=== PATIENT | female | born 1995 | race Caucasian/White ===

== ENCOUNTER → 2017-10-31 13:41 | Outpatient (REF) | payer OTHER, SELFPAY ==
[2017-10-31 19:01] LABS: Basophils % 0.3 % (0.1-2.0); Eosinophils # 0.1 K/mm3 (0.0-0.4); Eosinophils % 1.2 % (0.1-12.0); Hematocrit 43.8 % (37.0-47.0); Hemoglobin 14.1 g/dL (12.2-16.2); Lymphocytes # 2.5 K/mm3 (0.7-4.5); Lymphocytes % 27.6 K/mm3 (10-50); Mean Corpuscular HGB Conc 32.3 g/dL (31.8-35.4); Mean Corpuscular Hemoglobin 27.6 pg (27.0-31.2); Mean Corpuscular Volume 85.6 fl (81-99); Mean Platelet Volume 10.7 fl (7.4-10.4); Monocytes # 0.4 K/mm3 (0.1-1.0); Monocytes % 4.3 % (1.7-9.3); Neutrophils % 66.6 % (37.0-80.0); Platelet Count 331 K/mm3 (142-424); Red Blood Count 5.12 M/mm3 (4.20-5.40); Red Cell Distribution Width 12.9 % (11.5-17.5); White Blood Count 9.1 K/mm3 (4.5-13.0)
[2017-10-31 19:49] LABS: Alanine Aminotransferase 30 U/L (12-78); Albumin Level 4.2 gm/dL (3.4-5.0); Albumin/Globulin Ratio 1.4 (1.1-1.8); Alkaline Phosphatase 68 U/L (46-116); Anion Gap 13.6 mEq/L (5-15); Aspartate Amino Transferase 11 U/L (15-37); Bilirubin,Total 0.4 mg/dL (0.2-1.0); Blood Urea Nitrogen 10 mg/dL (7-18); Calcium 9.9 mg/dL (8.5-10.1); Carbon Dioxide 26 mmol/L (21.0-32.0); Chloride 104 mmol/L (98-107); Chol/HDL Ratio 4.1 (1-3.5); Cholesterol 184 mg/dL (140-200); Creatinine,Serum 0.65 mg/dL (0.55-1.02); Estimated Glomerular Filt Rate 116 ml/min (>60); GFR (African American) 141 ML/MIN (>60); Globulin 2.9 gm/dl (1.3-3.2); Glucose 77 mg/dL (74-106); HDL Cholesterol 45 mg/dL (29-89); LDL Cholesterol 109 mg/dL (0-130); Potassium 4.6 mmoL/L (3.5-5.1); Sodium 139 mmol/L (136-145); Thyroid Stimulating Hormone 2.34 uIU/ml (0.516-4.13); Total Protein,Serum 7.1 gm/dL (6.4-8.2); Triglycerides 149 mg/dL (30-200); VLDL Cholesterol 30 mg/dL (0-40)
[2017-11-02 20:10] LABS: Vitamin D 25 Hydroxy 21.2 ng/mL (30.0-100.0)
== END ==
LOC: LAB 13:41
PROVIDERS: Visit Provider Physician Assistant
DX: E66.9 Obesity, unspecified (principal); R10.9 Unspecified abdominal pain
CPT/HCPCS: 80053; 80061; 82652; 84443; 85025

== ENCOUNTER 2020-10-07 10:32 | Emergency (ER) | payer OTHER, SELFPAY ==
[2020-10-07 10:35] VITALS: BP 131/82; PULSE 105; RESP 20; TEMP 36.9; O2SAT 96; BMI 41.1
[2020-10-07 10:52] VITALS: BP 131/82; PULSE 105; RESP 20; TEMP 36.9; O2SAT 96
--- NOTE | 2020-10-07 10:58 | HMH.EDUTC ---
[facility] – [place] Disposition Clinical Impression: Left otitis media with effusion Disposition: Home, Self-Care Condition on Discharge: Good Instructions: Middle Ear Infection Additional Instructions: Drink plenty of fluids. Take tylenol for pain or fever. Return if you begin to have difficulty breathing. Follow up with your regular doctor. GO TO THE ER FOR ANY WORSENING SYMPTOMS Prescriptions: Amoxicillin/Potassium Clav [Augmentin 875-125 Tablet] 1 tab PO Q12H 10 Days #20 tab Transmission Status: Received by [facility] #[id number] Neomycin/Polymyxin B Sulf/Hc [Hfhjtyml-Kngcdjhgo-WN Otic Susp 10mL] 3 drops EAR-LEFT TID 7 Days #1 bottle Transmission Status: Received by [employer] # Referrals: Kourtney Park PA [Primary Care Provider] - Time of Disposition: 11:05 Medical Decision Making - Medical Records Medical records reviewed: No: I reviewed the patient's medical records. - Bill Inquiry Pt receiving controlled substance: No Vital Signs: 10/07/20 10:35 10/07/20 10:52 Temperature 98.4 F 98.4 F Temperature Source Oral Pulse Rate 105 H Pulse Rate [Right Brachial] 105 H Respiratory Rate 20 20 Blood Pressure 131/82 Blood Pressure [Right Arm] 131/82 Blood Pressure Mean [Right Arm] 98 Blood Pressure Source [Right Arm] Automatic Cuff Blood Pressure Position [Right Arm] Sitting 02 Sat by Pulse Oximetry 96 Oxygen Delivery Method Room Air [facility] – [place] HPI - General Stated complaint: left ear infection Time Seen by Provider: 10/07/20 10:58 Mode of Arrival: Ambulatory Source of Information: Patient Limitations: No Limitations Description of Symptoms (Recalled from Triage Doc. by RN): PATIENT C/O LEFT EAR PAIN X 2.5 DAYS HEENT Symptoms (Recalled from RN notes): Yes Resp Symptoms (Recalled from RN notes): No Skin Symptoms (Recalled from RN notes): No MS Symptoms (Recalled from RN notes): No Functional Status (Recalled from RN notes): WNL - History of Present Illness Provider Complaint: She c/o left ear pain for the past 2 days. She denies any fever/chills, body aches, etc. - Related Data Previous Rx's Medication Instructions Recorded Amoxicillin/Potassium Clav 1 tab PO Q12H 10 Days #20 tab 12/24/20 [Augmentin 875-125 Tablet] Neomycin/Polymyxin B Sulf/Hc 3 drops EAR-LEFT TID 7 Days #1 10/07/20 [Szceohjd-Dokbvtekg-EH Otic Susp bottle 10mL] Allergies Allergy/AdvReac Type Severity Reaction Status Date / Time No Known Allergies Allergy Verified 07/06/20 16:13 - Worker's Comp Is this a Worker's Comp case?: No H History - Hepatitis A Screen Drug use history?: No High risk sexual behaviors?: No History of sexually transmitted infection?: No Currently employed?: No Childcare worker?: No Do you have indoor plumbing?: Yes Do you have electricity?: Yes Attestation statement:: This patient has been screened for Hepatitis A risk factors. I have reviewed the patient's past medical history: Yes Medical History: Reports:: Asthma Comment: History of Thyroid Issues, vitamin d deficiency Laterality Cases: Bilateral: Tonsillectomy Amputation: No Fractures: No - Social History Smoking Status: Current every day smoker Tobacco Type: cigarettes # Packs/Day (cigarettes): 1 Alcohol Intake: never Alcohol Intake Frequency:: holidays/special occasions only Substance Use Type: denies use Occupational Status: other Housing: other Household Members: family Family Hx:: Hypertension Comment: Both mom and dad ROS Obtained: Yes All systems reviewed & no additional complaints - Constitutional Constitutional: Reports system reviewed and no additional complaints, except as docu - Eyes Eyes: Reports system reviewed and no additional complaints, except as docu - ENT Ears, Nose, Mouth, and Throat: Reports system reviewed and no additional complaints, except as docu - Cardiovascular Cardiovascular: Reports system reviewed and no additional complaints, except
== END 2020-10-07 11:00 | disposition home or self-care (01) ==
PROVIDERS: Emergency Provider Nurse Practitioner Family; PCP Physician Assistant
DX: H65.92 Unspecified nonsuppurative otitis media, left ear (principal); J45.909 Unspecified asthma, uncomplicated
CPT/HCPCS: 99201

== ENCOUNTER → 2021-07-27 14:22 | Outpatient (CLI) | payer OTHER, SELFPAY ==
[2021-07-27 14:39] LABS: Basophils % 0.5 % (0.1-2.0); Eosinophils % 0.4 % (0.1-12.0); Hematocrit 39.7 % (37.0-47.0); Lymphocytes # 2.1 K/mm3 (0.7-4.5); Lymphocytes % 34.6 % (10-50); Mean Corpuscular HGB Conc 32.8 g/dL (31.8-35.4); Mean Corpuscular Hemoglobin 27.6 pg (27.0-31.2); Mean Platelet Volume 10.5 fl (7.4-10.4); Monocytes # 0.2 K/mm3 (0.1-1.0); Monocytes % 3.9 % (1.7-9.3); Neutrophils # 3.7 K/mm3 (1.8-7.8); Neutrophils % 60.6 % (37.0-80.0); Platelet Count 344 K/mm3 (142-424); Red Blood Count 4.73 M/mm3 (4.20-5.40); Red Cell Distribution Width 13.8 % (11.5-17.5); White Blood Count 6.2 K/mm3 (4.8-10.8)
[2021-07-27 14:47] LABS: Chloride 106 mmol/L (98-107)
[2021-07-27 14:48] LABS: Potassium 4.2 mmoL/L (3.5-5.1); Sodium 139 mmol/L (136-145)
[2021-07-27 14:50] LABS: Alanine Aminotransferase 29 U/L (12-78); Alkaline Phosphatase 72 U/L (38-126); Anion Gap 12.2 mEq/L (5-15); Aspartate Amino Transferase 27 U/L (14-36); Bilirubin,Total 0.8 mg/dl (0.2-1.3); Blood Urea Nitrogen 7 mg/dl (7-17); Carbon Dioxide 25 mmol/L (22.0-30.0); Estimated Glomerular Filt Rate 123 ml/min (>60); GFR (African American) 149 ML/MIN (>60)
[2021-07-27 14:51] LABS: Albumin Level 4.1 g/dl (3.5-5.0); Albumin/Globulin Ratio 1.6 (1.1-1.8); Calcium 9.4 mg/dl (8.4-10.2); Chol/HDL Ratio 4.6 (1-3.5); Cholesterol 198 mg/dl (140-200); Globulin 2.6 g/dL (1.3-3.2); Glucose 97 mg/dl (74-100); HDL Cholesterol 43 mg/dl (40-60); Total Protein,Serum 6.7 g/dl (6.3-8.2); Triglycerides 146 mg/dl (30-150); VLDL Cholesterol 29 mg/dL (0-40)
[2021-07-27 15:02] LABS: Direct LDL Cholesterol 131.74 mg/dL (100-129)
[2021-07-27 15:09] LABS: T4 (Thyroxine) 8.7 ug/dl (5.53-11.0)
[2021-07-27 15:16] LABS: 25-OH Vitamin D, Total 34.7 ng/mL (30-100)
[2021-07-27 15:22] LABS: Thyroid Stimulating Hormone 3.91 uIU/mL (0.465-4.68)
== END ==
PROVIDERS: Visit Provider Nurse Practitioner Family
DX: R59.9 Enlarged lymph nodes, unspecified (principal); E66.9 Obesity, unspecified; Z68.42 Body mass index [BMI] 45.0-49.9, adult
CPT/HCPCS: 80053; 80061; 82306; 84436; 84443; 85025

== ENCOUNTER 2022-01-26 09:48 | Emergency (ER) | payer OTHER, SELFPAY ==
[2022-01-26 10:12] VITALS: BP 129/89; PULSE 101; RESP 19; TEMP 37; O2SAT 96; BMI 39.4
--- NOTE | 2022-01-26 10:24 | HMH.EDUTC ---
[facility] [place] Clinical Impression: Diarrhea Qualifiers: Diarrhea type: unspecified type Qualified Code(s): R19.7 - Diarrhea, unspecified Disposition: Home, Self-Care Condition on Discharge: Good Instructions: Diarrhea Additional Instructions: Monitor temperature. Seek treatment if fever develops. Follow-up immediately if new or worse symptoms worsen or no noticeable improvement over 48 hours. Increase fluids such as water, Gatorade, Powerade, juice or Pedialyte with limited formula/dietary in children No food is okay as long as you are drinking. Once ready to eat start bland such as bananas, rice, applesauce, toast. Contagious until no diarrhea, vomiting, fever times 48 hours without medication Avoid antidiarrheals unless told otherwise. Best to let the virus run its course. Follow-up immediately for new or worsening symptoms or no noticeable improvement over the next 48 hours. Referrals: Kourtney Park PA [Primary Care Provider] - Time of Disposition: 10:34 Medical Decision Making - Bill Inquiry Pt receiving controlled substance: No Vital Signs: 01/26/22 10:12 Temperature 98.6 F Temperature Source Oral Pulse Rate [Left] 101 H Respiratory Rate 19 Blood Pressure [Right Arm] 129/89 Blood Pressure Mean [Right Arm] 102 02 Sat by Pulse Oximetry 96 [facility] [place] - General Chief complaint: [facility] Stated complaint: diarrhea, abd pains, fever/chills Time Seen by Provider: 01/26/22 10:24 Mode of Arrival: Ambulatory Source of Information: Patient Limitations: No Limitations Description of Symptoms (Recalled from Triage Doc. by RN): pt c/o a fever, diarrhea, and shakiness since Sunday. HEENT Symptoms (Recalled from RN notes): No Resp Symptoms (Recalled from RN notes): No Skin Symptoms (Recalled from RN notes): No MS Symptoms (Recalled from RN notes): No Functional Status (Recalled from RN notes): wnl - History of Present Illness Provider Complaint: 27 yr old female presents for c/o a fever, diarrhea, and chills since Sunday. pt denies vomiting or nausea. states no other sick contacts - Related Data Home Medications Medication Instructions Recorded Confirmed No Known Home Medications 07/27/21 09/02/21 Allergies Allergy/AdvReac Type Severity Reaction Status Date / Time No Known Allergies Allergy Verified 11/19/21 11:39 - Worker's Comp Is this a Worker's Comp case?: No [facility] History - Hepatitis A Screen Drug use history?: No High risk sexual behaviors?: No History of sexually transmitted infection?: No Currently employed?: No Childcare worker?: No Do you have indoor plumbing?: Yes Do you have electricity?: Yes Attestation statement:: This patient has been screened for Hepatitis A risk factors. I have reviewed the patient's past medical history: Yes Medical History: Reports:: Asthma Comment: History of Thyroid Issues, vitamin d deficiency Laterality Cases: Bilateral: Tonsillectomy Amputation: No Fractures: No Comment: tonsil and adenoids removed - Social History Smoking Status: Current every day smoker Tobacco Type: e-cigarettes # Packs/Day (cigarettes): 1 Alcohol Intake: current Alcohol Intake Frequency:: holidays/special occasions only Substance Use Type: denies use Occupational Status: other Housing: other Household Members: family Family Hx:: Hypertension Comment: Both mom and dad ROS Obtained: Yes Systems reviewed as appropriate & no additional complaints - Constitutional Constitutional: Reports system reviewed and no additional complaints, except as docu, Denies fatigue, Reports fever(s), Reports poor appetite - Eyes Eyes: Reports system reviewed and no additional complaints, except as docu, Denies blurry vision - ENT Ears, Nose, Mouth, and Throat: Reports system reviewed and no additional complaints, except as docu, Denies sore throat - Cardiovascular Cardiovascular: Reports system reviewed and no additional complaints, except as docu
[2022-01-26 10:31] LABS: UTC Influenza A Antigen Negative (Negative); UTC Influenza B Antigen Negative (Negative)
[2022-01-26 10:41] VITALS: BP 129/89; PULSE 101; RESP 19; TEMP 37
[2022-01-26 10:42] LABS: Adenovirus F 40/41, stool Not Detected (NotDetected); Astrovirus Not Detected (NotDetected); Campylobacter Not Detected (NotDetected); Clostridium Difficile A/B, PCR Not Detected (NotDetected); Cryptosporidium Not Detected (NotDetected); Cyclospora Cayetanesis Not Detected (NotDetected); Entamoeba histolytica Not Detected (NotDetected); Enteroaggregative E coli Not Detected (NotDetected); Enteropathogenic E coli Not Detected (NotDetected); Enterotoxigenic E coli Not Detected (NotDetected); Giardia lamblia Not Detected (NotDetected); Norovirus Not Detected (NotDetected); Plesimonas Shigalloides, PCR Not Detected (NotDetected); Salmonella, PCR Not Detected (NotDetected); Sapovirus Not Detected (NotDetected); Shiga-like toxin E coli Not Detected (NotDetected); Shigella Enterovasive E coli Not Detected (NotDetected); Vibrio Cholerae Not Detected (NotDetected); Vibrio, PCR Not Detected (NotDetected); Yersinia Entercolitica, PCR Not Detected (NotDetected)
[2022-01-26 14:46] LABS: Rotavirus A Detected (NotDetected)
== END 2022-01-26 10:42 | disposition home or self-care (01) ==
PROVIDERS: Emergency Provider Nurse Practitioner Family; PCP Physician Assistant
DX: R19.7 Diarrhea, unspecified (principal); R10.9 Unspecified abdominal pain; R50.9 Fever, unspecified; J45.909 Unspecified asthma, uncomplicated; F17.210 Nicotine dependence, cigarettes, uncomplicated; E55.9 Vitamin D deficiency, unspecified; E66.9 Obesity, unspecified; Z68.30 Body mass index [BMI] 30.0-30.9, adult; Z82.49 Family history of ischemic heart disease and other diseases of the circulatory system
CPT/HCPCS: 87506; 87804; 99212; G0463

== ENCOUNTER → 2022-06-13 07:10 | Outpatient (CLI) | payer OTHER, SELFPAY ==
[2022-06-13 19:59] LABS: Basophils % 0.5 % (0.1-2.0); Eosinophils # 0.1 K/mm3 (0.0-0.4); Eosinophils % 0.8 % (0.1-12.0); Hematocrit 42.2 % (37.0-47.0); Hemoglobin 13.5 g/dL (12.2-16.2); Lymphocytes # 2.4 K/mm3 (0.7-4.5); Lymphocytes % 29.9 % (10-50); Mean Corpuscular HGB Conc 32.1 g/dL (31.8-35.4); Mean Corpuscular Hemoglobin 27.2 pg (27.0-31.2); Mean Corpuscular Volume 84.6 fl (81-99); Mean Platelet Volume 10.9 fl (7.4-10.4); Monocytes # 0.4 K/mm3 (0.1-1.0); Monocytes % 4.7 % (1.7-9.3); Neutrophils # 5.1 K/mm3 (1.8-7.8); Platelet Count 349 K/mm3 (142-424); Red Blood Count 4.98 M/mm3 (4.20-5.40); Red Cell Distribution Width 13.8 % (11.5-17.5); White Blood Count 7.9 K/mm3 (4.8-10.8)
== END ==
PROVIDERS: PCP Physician Assistant; Visit Provider Physician Assistant
DX: R53.83 Other fatigue (principal); R23.3 Spontaneous ecchymoses
CPT/HCPCS: 84443; 85025

== ENCOUNTER 2022-08-08 13:24 | Emergency (ER) | payer OTHER, SELFPAY ==
[2022-08-08 15:13] VITALS: BP 119/65; PULSE 85; RESP 16; TEMP 36.7; O2SAT 100; BMI 41.1
[2022-08-08 15:15] LABS: UTC Strep Screen (Rapid) Negative (Negative)
--- NOTE | 2022-08-08 15:27 | EXP.UTC ---
Discharge Plan Disposition Patient Disposition: Home, Self-Care Condition: Good Prescriptions Prescriptions: New amoxicillin 875 mg tablet 875 mg PO BID Qty: 20 0RF methylprednisolone [Medrol (Sacha)] 4 mg tablets,dose pack See Rx Instructions .Route .COMPLEX 6 Days Qty: 21 0RF Rx Instructions: taper pack; No Action dicyclomine 20 mg tablet 20 mg PO TID PRN (Reason: pain/diarrhea) Qty: 60 2RF ondansetron 8 mg tablet,disintegrating 8 mg PO Q8H PRN (Reason: nausea and vomiting) 5 Days Qty: 20 0RF Contrave 8-90 mg tablet extended release 1 tab PO DAILY Rx Instructions: 1 tab QAM X 1 week, then 1 BID X 1 week, then 2 Q AM and 1 QHS X 1 week, then 2 BID Referrals Follow up/Referrals: Kourtney Park PA [Primary Care Provider] - See instructions Activity Restrictions/Add. Instructions Additional Instructions/Restrictions: *Monitor Temp, Over the counter Motrin or Tylenol as directed/as needed Tylenol every 4 hours and Motrin every 6 hours (as long as your family doctor has told you that you can take it) for fever or pain. and straight to ER if unable to lower temp less than 101.0 after medication given *Warm salt water gargles may help to soothe the throat *Throat Lozenges? *Warm fluids like tea with honey may help to soothe the throat? *Sleep elevated *Humidifier/Vaporizer Take medication as prescribed Your throat swab was sent for culture. Those results are typically sent to your primary care. Be sure to follow up in 2-3 days with your family doctor/primary care physician if no improvement so they can review those result and treat if necessary. If you don?t have a primary care doctor, I recommend you get one but in the mean time, you will have to return to a walk in clinic Follow up IMMEDIATELY for new or worsening symptoms or no Noticeable improvement over the next 48-72 hours. 911 for difficulty breathing or swallowing Clinical Impressions Clinical Impression: Otitis media Instructions Patient Instructions: Middle Ear Infection, Amoxicillin, Sore Throat Discharge ED Provider: Mahogany Silverio [facility] HPI General Stated complaint: Sore throat Mode of Arrival: Ambulatory Source of Information: Patient Limitations: No Limitations Time Seen by Provider: 08/08/22 15:27 Description of Symptoms (Recalled from Triage Doc. by RN): pt comes in with c/o sore throat, bilateral ear pain. ongoing since sunday HEENT Symptoms (Recalled from RN notes): Yes Resp Symptoms (Recalled from RN notes): Yes Skin Symptoms (Recalled from RN notes): No MS Symptoms (Recalled from RN notes): No Functional Status (Recalled from RN notes): n/a History of Present Illness Provider Complaint: Patient states that she started on Sunday with sore throat and bilateral ear aches States that this morning her throat was hurting worse and hurt when she would swallow so she came in Related Data Home Medications Medication Instructions Recorded Confirmed naltrexone 8 mg-bupropion 90 mg 1 tab PO DAILY . 08/08/22 08/08/22 tablet,extended release (Contrave) Previous Rx's Medication Instructions Recorded dicyclomine 20 mg tablet 20 mg PO TID PRN pain/diarrhea #60 03/09/22 tabs ondansetron 8 mg disintegrating 8 mg PO Q8H PRN nausea and 03/09/22 tablet vomiting 5 days #20 tabs amoxicillin 875 mg tablet 875 mg PO BID #20 tabs 08/08/22 methylprednisolone 4 mg tablets in See Rx Instructions .Route 08/08/22 a dose pack (Medrol (Sacha)) .COMPLEX 6 days #21 tabs Allergies Allergy/AdvReac Type Severity Reaction Status Date / Time phentermine [From Adipex-P] Allergy Mild Verified 08/08/22 15:16 Worker's Comp Is this a Worker's Comp case?: No PFSH PFSH Medical History (Updated 08/08/22 @ 15:33 by Mahogany Silverio APRN) Allergic reaction Obesity (BMI 30-39.9) Recurrent boils Swollen lymph nodes Vitamin D deficiency (~10/2017) Social History (Reviewed 08/08/22 @ 15:1
[2022-08-08 15:48] VITALS: BP 119/65; PULSE 85; RESP 16; TEMP 36.7; O2SAT 100
== END 2022-08-08 15:49 | disposition home or self-care (01) ==
PROVIDERS: Emergency Provider Nurse Practitioner; PCP Physician Assistant
DX: H66.90 Otitis media, unspecified, unspecified ear (principal)
CPT/HCPCS: 87880; 99212; G0463

== ENCOUNTER 2022-08-26 16:43 | Emergency (ER) | payer OTHER, SELFPAY ==
[2022-08-26 18:06] VITALS: BP 148/79; PULSE 89; RESP 19; TEMP 36.8; O2SAT 98; BMI 37.9
--- NOTE | 2022-08-26 18:10 | EXP.UTC ---
Discharge Plan Disposition Patient Disposition: Home, Self-Care Condition: Good Prescriptions Prescriptions: New fluticasone propionate [Flonase Allergy Relief] 50 mcg/actuation spray,suspension 1 spray intranasal DAILY Qty: 16 0RF Rx Instructions: administer into each nostril metronidazole 500 mg tablet 500 mg PO Q12H 7 Days Qty: 14 0RF No Action dicyclomine 20 mg tablet 20 mg PO TID PRN (Reason: pain/diarrhea) Qty: 60 2RF ondansetron 8 mg tablet,disintegrating 8 mg PO Q8H PRN (Reason: nausea and vomiting) 5 Days Qty: 20 0RF Contrave 8-90 mg tablet extended release 1 tab PO DAILY Rx Instructions: 1 tab QAM X 1 week, then 1 BID X 1 week, then 2 Q AM and 1 QHS X 1 week, then 2 BID amoxicillin 875 mg tablet 875 mg PO BID Qty: 20 0RF methylprednisolone [Medrol (Sacha)] 4 mg tablets,dose pack See Rx Instructions .Route .COMPLEX 6 Days Qty: 21 0RF Rx Instructions: taper pack; Referrals Follow up/Referrals: Kourtney Park PA [Primary Care Provider] - See instructions Activity Restrictions/Add. Instructions Additional Instructions/Restrictions: Use flonase to help open up your estachianal tubes to help fluid drain from ears Take oral medication as prescribed Follow up with OBGYN if symptoms continue or get worse Return if needed Straight to ER if any life threatening symptoms Clinical Impressions Clinical Impression: Bacterial vaginosis Eustachian tube dysfunction Qualifiers: Laterality: left Qualified Code(s): H69.82 - Other specified disorders of Eustachian tube, left ear Instructions Patient Instructions: Bacterial Vaginosis, DI for Bacterial Vaginosis, DI for Eustachian Tube Dysfunction-Adult, Metronidazole Discharge ED Provider: Mahogany Silverio [facility] [place] HPI General Stated complaint: poss [facility], ear pain Time Seen by Provider: 08/26/22 18:10 History of Present Illness Provider Complaint: Patient states that she has been having itchy like feeling in her vaginal area with discharge that is off white with a foul fishy odor States that she is worried she may a UTI or BV so she came in wanting to get checked States that she also had ear infection a week or so ago and has finished the medication but still having pain on and off in her ears Related Data Home Medications Medication Instructions Recorded Confirmed naltrexone 8 mg-bupropion 90 mg 1 tab PO DAILY . 08/08/22 08/08/22 tablet,extended release (Contrave) Previous Rx's Medication Instructions Recorded dicyclomine 20 mg tablet 20 mg PO TID PRN pain/diarrhea #60 03/09/22 tabs ondansetron 8 mg disintegrating 8 mg PO Q8H PRN nausea and 03/09/22 tablet vomiting 5 days #20 tabs amoxicillin 875 mg tablet 875 mg PO BID #20 tabs 08/08/22 methylprednisolone 4 mg tablets in See Rx Instructions .Route 08/08/22 a dose pack (Medrol (Sacha)) .COMPLEX 6 days #21 tabs fluticasone propionate 50 1 spray intranasal DAILY #16 grams 08/26/22 mcg/actuation nasal spray,suspension (Flonase Allergy Relief) metronidazole 500 mg tablet 500 mg PO Q12H 7 days #14 tabs 08/26/22 Allergies Allergy/AdvReac Type Severity Reaction Status Date / Time phentermine [From Adipex-P] Allergy Mild Verified 08/08/22 15:16 [facility] Medical History (Updated 08/26/22 @ 18:25 by Mahogany Silverio APRN) Allergic reaction Asthma Obesity (BMI 30-39.9) Recurrent boils Swollen lymph nodes Urinary tract infection Vitamin D deficiency (~10/2017) Social History Smoking Status: Current every day smoker tobacco type: e-cigarettes alcohol intake: current substance use type: denies use current occupational status: other Travel in the last 8 weeks: None household members: family housing: other ROS Obtained: Yes All systems reviewed & no additional complaints except as documented and Yes Systems reviewed as appropriate & no additional complaints exc
[2022-08-26 18:14] LABS: UTC Pregnancy Test, Urine Negative (Negative)
[2022-08-26 18:15] LABS: Apearance,Urine Clear (Clear); Bilirubin,Urine Negative (Negative); Blood, Urine Negative (Negative); Color,Urine Yellow (Yellow); Glucose,Urine (UA) Negative (Negative); Ketones,Urine Negative (Negative); PH,Urine 5.5 (5.0-8.5); Protein,Urine Negative (Negative); UTC Leukocyte Esterase,Urine Negative (Negative); UTC Nitrate,Urine Negative (Negative); Urobilinogen,Urine 1 EU/dl (0.2)
[2022-08-26 18:25] VITALS: BP 148/79; PULSE 89; RESP 19; TEMP 36.8; O2SAT 98
== END 2022-08-26 18:29 | disposition home or self-care (01) ==
PROVIDERS: Emergency Provider Nurse Practitioner; PCP Physician Assistant
DX: H92.09 Otalgia, unspecified ear (principal); N76.0 Acute vaginitis; B96.89 Other specified bacterial agents as the cause of diseases classified elsewhere; H69.82 Other specified disorders of Eustachian tube, left ear
CPT/HCPCS: 81003; 81025; 99212; G0463

== ENCOUNTER 2022-11-25 09:58 | Emergency (ER) | payer OTHER, SELFPAY ==
--- NOTE | 2022-11-25 10:04 | EXP.UTC ---
Discharge Plan Disposition Patient Disposition: Home, Self-Care Condition: Good Prescriptions Prescriptions: New phenazopyridine [Pyridium] 200 mg tablet 200 mg PO Q8H 2 Days Qty: 6 0RF ciprofloxacin HCl [Cipro] 500 mg tablet 500 mg PO BID 7 Days Qty: 14 0RF ondansetron 4 mg Tablet,Disintegrating 4 mg PO Q8H PRN (Reason: Nausea) Qty: 12 0RF No Action dicyclomine 20 mg tablet 20 mg PO TID PRN (Reason: pain/diarrhea) Qty: 60 2RF ondansetron 8 mg tablet,disintegrating 8 mg PO Q8H PRN (Reason: nausea and vomiting) 5 Days Qty: 20 0RF prednisone 20 mg tablet 20 mg PO BID Qty: 10 0RF Rx Instructions: administer with food or milk fluticasone propionate [Flonase Allergy Relief] 50 mcg/actuation spray,suspension 1 spray intranasal DAILY Qty: 16 0RF Rx Instructions: administer into each nostril Referrals Follow up/Referrals: Kourtney Park PA [Primary Care Provider] - See instructions Activity Restrictions/Add. Instructions Additional Instructions/Restrictions: Drink plenty of fluids. Take tylenol or ibuprofen for pain or fever. Take the medications as directed. Follow up with your regular doctor. GO TO THE ER FOR ANY WORSENING SYMPTOMS The pyridium will make your urine turn orange, this is an expected side effect. It will stain your clothes if it comes into contact with them. We will culture the urine. That will tell what bacteria is causing your infection and which antibiotics will treat it best. Sometimes the first antibiotic we prescribe turns out to not work against different bacteria. So, make sure you follow up within 3 days if you are not getting better. Clinical Impressions Clinical Impression: UTI (urinary tract infection) Instructions Patient Instructions: Urine Culture, DI for Urinary Tract Infection (UTI), Phenazopyridine Discharge ED Provider: Vishnu Chi [facility] [place] General Stated complaint: low back pain Time Seen by Provider: 11/25/22 10:00 History of Present Illness Provider Complaint: She states that for the past 3 days she has had worsening low back pain, urinary frequency and dysuria. Related Data Previous Rx's Medication Instructions Recorded dicyclomine 20 mg tablet 20 mg PO TID PRN pain/diarrhea #60 03/09/22 tabs ondansetron 8 mg disintegrating 8 mg PO Q8H PRN nausea and 03/09/22 tablet vomiting 5 days #20 tabs fluticasone propionate 50 1 spray intranasal DAILY #16 grams 08/26/22 mcg/actuation nasal spray,suspension (Flonase Allergy Relief) prednisone 20 mg tablet 20 mg PO BID #10 tabs 11/14/22 ciprofloxacin HCl 500 mg tablet 500 mg PO BID 7 days #14 tabs 11/25/22 (Cipro) ondansetron 4 mg disintegrating 4 mg PO Q8H PRN Nausea #12 tabs 11/25/22 tablet phenazopyridine 200 mg tablet 200 mg PO Q8H 2 days #6 tabs 11/25/22 (Pyridium) Allergies Allergy/AdvReac Type Severity Reaction Status Date / Time phentermine [From Adipex-P] Allergy Mild Verified 11/14/22 10:45 cefdinir Allergy Hives Verified 11/22/22 11:36 PFS PFS Disclaimer: The information contained in this section may have been updated after the patient was seen, as this information can be updated by other users. Medical History Allergic reaction Asthma Obesity (BMI 30-39.9) Recurrent boils Swollen lymph nodes Thyroid disease Urinary tract infection Vitamin D deficiency (~10/2017) Surgical History History of tonsillectomy Social History Smoking Status: Current every day smoker tobacco type: e-cigarettes alcohol intake: current substance use type: denies use current occupational status: other Travel in the last 8 weeks: None household members: family housing: other ROS Obtained: Yes All systems reviewed & no additional complaints except as documente
[2022-11-25 10:10] VITALS: BP 148/81; PULSE 116; RESP 20; TEMP 36.7; O2SAT 97; BMI 38.6
[2022-11-25 10:43] LABS: Apearance,Urine Clear (Clear); Color,Urine Dark Yellow (Yellow); Glucose,Urine (UA) Negative (Negative); Ketones,Urine Negative (Negative); PH,Urine 6.5 (5.0-8.5); Protein,Urine Trace (Negative)
[2022-11-25 10:44] LABS: Bilirubin,Urine Negative (Negative); Blood, Urine Negative (Negative); UTC Leukocyte Esterase,Urine 1+ (Negative); UTC Nitrate,Urine Negative (Negative); Urobilinogen,Urine 0.2 EU/dl (0.2)
[2022-11-25 11:10] VITALS: BP 148/81; PULSE 116; RESP 20; TEMP 36.7; O2SAT 97
== END 2022-11-25 11:14 | disposition home or self-care (01) ==
PROVIDERS: Emergency Provider Nurse Practitioner Family; PCP Physician Assistant
DX: N39.0 Urinary tract infection, site not specified (principal)
CPT/HCPCS: 81003; 87086; 99212; 99213; G0463

== ENCOUNTER → 2023-02-20 23:16 | Outpatient (CLI) | payer OTHER, SELFPAY ==
[2023-02-20 19:56] LABS: Basophils % 0.3 % (0.1-2.0); Eosinophils # 0.1 K/mm3 (0.0-0.4); Eosinophils % 1.4 % (0.1-12.0); Hematocrit 40.5 % (37.0-47.0); Hemoglobin 13.1 g/dL (12.2-16.2); Lymphocytes # 2.5 K/mm3 (0.7-4.5); Lymphocytes % 30.7 % (10-50); Mean Corpuscular HGB Conc 32.4 g/dL (31.8-35.4); Mean Corpuscular Hemoglobin 27.4 pg (27.0-31.2); Mean Corpuscular Volume 84.5 fl (81-99); Mean Platelet Volume 10.1 fl (7.4-10.4); Monocytes # 0.4 K/mm3 (0.1-1.0); Monocytes % 4.6 % (1.7-9.3); Neutrophils # 5.1 K/mm3 (1.8-7.8); Neutrophils % 62.9 % (37.0-80.0); Platelet Count 326 K/mm3 (142-424); Red Blood Count 4.79 M/mm3 (4.20-5.40); Red Cell Distribution Width 13.7 % (11.5-17.5); White Blood Count 8.1 K/mm3 (4.8-10.8)
[2023-02-20 20:40] LABS: HCG Qualitative, Serum Negative (Negative)
[2023-02-20 20:41] LABS: Chloride 101 mmol/L (98-107); Potassium 3.7 mmoL/L (3.5-5.1); Sodium 140 mmol/L (136-145)
[2023-02-20 20:43] LABS: Alanine Aminotransferase 45 U/L (12-78); Aspartate Amino Transferase 31 U/L (14-36); Blood Urea Nitrogen 11 mg/dl (7-17); Estimated Glomerular Filt Rate 87 ml/min (>60); GFR (African American) 105 ML/MIN (>60)
[2023-02-20 20:44] LABS: Albumin Level 4.1 g/dl (3.5-5.0); Albumin/Globulin Ratio 1.6 (1.1-1.8); Anion Gap 16.7 mEq/L (5-15); Calcium 9.1 mg/dl (8.4-10.2); Carbon Dioxide 26 mmol/L (22.0-30.0); Chol/HDL Ratio 4.5 (1-3.5); Cholesterol 203 mg/dl (140-200); Globulin 2.6 g/dL (1.3-3.2); Glucose 88 mg/dl (74-100); HDL Cholesterol 45 mg/dl (40-60); Iron 56 ug/dL (37-170); Total Protein,Serum 6.7 g/dl (6.3-8.2); Triglycerides 217 mg/dl (30-150); VLDL Cholesterol 43 mg/dL (0-40)
[2023-02-20 20:52] LABS: 25-OH Vitamin D, Total 35.7 ng/mL (30-100)
[2023-02-20 20:55] LABS: Direct LDL Cholesterol 133.81 mg/dL (100-129); Total Iron Binding Capacity 291 ug/dL (265-497)
[2023-02-20 21:15] LABS: Thyroid Stimulating Hormone 3.64 uIU/mL (0.465-4.68)
[2023-02-20 21:19] LABS: Ferritin 30.2 ng/ml (6.24-137)
[2023-02-20 21:34] LABS: Alkaline Phosphatase 61 U/L (38-126); Bilirubin,Total 0.4 mg/dl (0.2-1.3)
[2023-02-20 22:25] LABS: Vitamin B12 483 pg/mL (239-931)
== END ==
LOC: LAB.DROPOF 23:16
PROVIDERS: PCP Physician Assistant; Visit Provider Physician Assistant
DX: R53.83 Other fatigue (principal)
CPT/HCPCS: 80053; 80061; 82306; 82607; 82728; 83540; 83550; 84443; 84703; 85025

== ENCOUNTER 2023-05-17 17:34 | Emergency (ER) | payer OTHER, SELFPAY ==
[2023-05-17 17:36] VITALS: BP 141/99; PULSE 77; RESP 18; TEMP 36.8; O2SAT 99; BMI 37.3
[2023-05-17 18:01] LABS: UTC Strep Screen (Rapid) Negative (Negative)
--- NOTE | 2023-05-17 18:03 | EXP.UTC ---
Discharge Plan Disposition Patient Disposition: Home, Self-Care Condition: Good Prescriptions Prescriptions: New prednisone 10 mg tablet 10 mg PO BID 4 Days Qty: 8 0RF amoxicillin-pot clavulanate 875-125 mg Tablet 1 tab PO Q12H Qty: 20 0RF No Action valacyclovir [Valtrex] 1 gram tablet 1,000 mg PO BID PRN (Reason: fever blister) Qty: 60 2RF Rx Instructions: Take until fever blister gone acyclovir [Zovirax] 5 % ointment 1 applic topical 6XD 7 Days Qty: 30 1RF buspirone 10 mg tablet 10 mg PO BID 90 Days Qty: 180 0RF fluticasone propionate [Flonase Allergy Relief] 50 mcg/actuation spray,suspension 1 spray intranasal DAILY Qty: 16 0RF Rx Instructions: administer into each nostril ondansetron 4 mg Tablet,Disintegrating 4 mg PO Q8H PRN (Reason: Nausea) Qty: 12 0RF Referrals Follow up/Referrals: Kourtney Park PA [Primary Care Provider] - See instructions Activity Restrictions/Add. Instructions Additional Instructions/Restrictions: Drink plenty of fluids. Apply warm wet compresses to the swollen area on the right side of your neck 3 to 4 times per day for 10 minutes each time for the next few days. Take tylenol or ibuprofen for pain or fever. Take the medications as directed. Follow up with your regular doctor. GO TO THE ER FOR ANY WORSENING SYMPTOMS If the swollen lymph node on your neck doesn't resolve in 4 to 5 days please follow up with your primary care physician to have it checked further. Clinical Impressions Clinical Impression: Cervical adenopathy, Pharyngitis, Infection of right ear Instructions Patient Instructions: Middle Ear Infection, DI for Pharyngitis/Tonsillopharyngitis -- Adult, DI for Lymphadenopathy Discharge ED Provider: Vishnu Chi [facility] General Stated complaint: Drainage ears&throat Mode of Arrival: Ambulatory Source of Information: Patient Limitations: No Limitations Time Seen by Provider: 05/17/23 18:02 Description of Symptoms (Recalled from Triage Doc. by RN): Patient reports she has had a swollen throat, right ear drainage and swollen right lymph node for 2 days. HEENT Symptoms (Recalled from RN notes): Yes Resp Symptoms (Recalled from RN notes): No Skin Symptoms (Recalled from RN notes): No MS Symptoms (Recalled from RN notes): No Functional Status (Recalled from RN notes): wnl History of Present Illness Provider Complaint: She states that for the past 2 days she has had sore throat, chills, malaise and right ear pain. Since yesterday she has had a swollen tender lump on the right side of her neck. Related Data Previous Rx's Medication Instructions Recorded fluticasone propionate 50 1 spray intranasal DAILY #16 grams 08/26/22 mcg/actuation nasal spray,suspension (Flonase Allergy Relief) ondansetron 4 mg disintegrating 4 mg PO Q8H PRN Nausea #12 tabs 11/25/22 tablet acyclovir 5 % topical ointment 1 applic topical 6XD 7 days #30 02/20/23 (Zovirax) grams valacyclovir 1 gram tablet 1,000 mg PO BID PRN fever blister 02/20/23 (Valtrex) #60 tabs buspirone 10 mg tablet 10 mg PO BID 90 days #180 tabs 05/08/23 amoxicillin 875 mg-potassium 1 tab PO Q12H #20 tabs 05/17/23 clavulanate 125 mg tablet prednisone 10 mg tablet 10 mg PO BID 4 days #8 tabs 05/17/23 Allergies Allergy/AdvReac Type Severity Reaction Status Date / Time phentermine [From Adipex-P] Allergy Mild Verified 02/20/23 10:25 cefdinir Allergy Hives Verified 02/20/23 10:25 Worker's Comp Is this a Worker's Comp case?: No [facility] Disclaimer: The information contained in this section may have been updated after the patient was seen, as this information can be updated by other users. Medical History Allergic reaction Asthma Obesity (BMI 30-39.9) Recurrent boils Swollen lymph nodes Thyroid disease Urinary tract infection Vitamin D deficiency (~10/2017) Surgical History
[2023-05-17 18:22] VITALS: BP 141/99; PULSE 77; RESP 18; TEMP 36.8; O2SAT 99
== END 2023-05-17 18:25 | disposition home or self-care (01) ==
PROVIDERS: Emergency Provider Nurse Practitioner Family; PCP Physician Assistant
DX: H66.91 Otitis media, unspecified, right ear (principal); J02.9 Acute pharyngitis, unspecified; R59.0 Localized enlarged lymph nodes; R53.81 Other malaise; F17.290 Nicotine dependence, other tobacco product, uncomplicated; J45.909 Unspecified asthma, uncomplicated; E03.9 Hypothyroidism, unspecified; E55.9 Vitamin D deficiency, unspecified; E66.9 Obesity, unspecified; Z68.30 Body mass index [BMI] 30.0-30.9, adult
CPT/HCPCS: 87880; 99212; 99214; G0463

== ENCOUNTER 2025-04-09 07:35 | Outpatient (CLI) | payer BC, SELFPAY ==
--- OUTSIDE RECORDS SUMMARY | 2025-02-19 13:15 | XMS_ITS | Encounter Summary ---
Author Organization [facility] [place] Address [address] [place] [address] Care Team Providers Care Associate Professor Of Art Name Role Phone Kourtney Park Primary Care Provider [phone] Reason for Visit * Reason Comments Procedure Repeat thyriod labs today Patient also c/o vaginal pain, discomfort and discharge Encounter Details Date Type Department Care Team (Late st Contact Info) Description 02/19/2025 1:15 PM EDT Office Visit Obstetrics & Gynecology [address] [place] [address] Yao Jackson MD [address] [place] [address] Vaginal pain (Primary Dx); Vaginal discharge; Dysuria Social History Tobacco Use Types Packs/Day Years Used Date Smoking Tobacco: Former Cigarettes 0.3 4 0 04/2019 - 04/2023 Smokeless Tobacco: Former Quit: 10/2023 Alcohol Use Standard Drinks/Week Comments Not Currently 0 (1 standard drink = 0.6 oz pur e alcohol) PHQ-2 Answer Date Recorded Patient Health Questionnaire-2 Score 0 11/18/2024 [place] Depression Scale Answer Date Recorded [place] Depression Scale Total 2 07/17/2024 The thought of harming myself has occurred to me . Never 07/17/2024 Comments No Sex and Gender Information Value Date Recorded Sex Assigned at Female 11/05/2023 3:26 PM EST Legal Sex Female 7:40 PM EDT Gender Identity Female 11/05/2023 3:26 PM EST Sexual Orientation Straight 11/05/2023 3: 26 PM EST documented as of this encounter Last Filed Vital Signs Vital Sign Reading Time Taken Comments Blood Pressure 137/89 02/19/2025 1:28 PM EDT Pulse 95 02/19/2025 1:28 PM EDT Temperature 36.7 C (98.1 F) 02/19/2025 1:28 PM EDT Respiratory Rate - - Oxygen Saturation 100% 02/19/2025 1:28 PM EDT Inhaled Oxygen Concentration - - Weight 110 kg (242 lb 8.1 oz) 02/19/2025 1:28 PM EDT Height - - Body Mass Index 41.63 07/12/2020 3:38 PM EDT documented in this encounter Miscellaneous Notes * Progress Notes - Yao Jackson MD - 02/19/2025 1:15 PM EDT Gynecology Progress Note Subjective 30 yo (VAVD x 1, C/S x 1) - here for an acute visit for 1+ week of vaginal DC + pain - worried for infection - also some dysuria. H/O HYPOTHYROID - Was on [place] Thyroid - stopped - labs NL - not on meds now. H/O HTN - off all BP meds - BP slightly elevated today - no sxs. See PCM. H/O BTL. Pap 10/2024 - wnl PCM - Kourtney Park Review of Systems Constitutional: Negative. HENT: Negative. Eyes: Negative. Respiratory: Negative. Cardiovascular: Negative. Gastrointestinal: Negative. Endocrine: Negative. Genitourinary: Positive for dysuria, vaginal discharge and vaginal pain. Musculoskeletal: Negative. Skin: Negative. Allergic/Immunologic: Negative. Neurological: Negative. Hematological: Negative. Psychiatric/Behavioral: Negative. All other systems reviewed and are negative. Objective Visit Vitals BP 137/89 Pulse 95 Temp 36.7 ??C (98.1 ??F) Physical Exam Constitutional: Appearance: Normal appearance. Genitourinary: Vulva normal. No lesions in the vagina. Right Labia: No rash, tenderness, lesions or skin changes. Left Labia: No tenderness, lesions, skin changes or rash. Vaginal discharge present. No vaginal erythema or tenderness. No vaginal prolapse present. No vaginal atrophy present. Vaginal exam comments: Thin clear DC Today I performed an in office vaginal PH test, PHEMALERT, that the patient tolerated well and the results were 4.5 . Pelvic exam was performed with patient in the lithotomy position. HENT: Head: Normocephalic and atraumatic. Right Ear: External ear normal. Left Ear: External ear normal. Pulmonary: Effort: Pulmonary effort is normal. Abdominal: General: Abdomen is flat. Palpations: Abdomen is soft. Musculoskeletal: General: Normal range of motion. Cervical back: Normal range of motion. Neurological: General: No focal deficit present. Mental Status: She is alert and oriented to person, place, and time. Skin: General: Skin is warm and dry. Psychiatric: Mood and Affect: Mood normal. Behavior: Behavior normal. Thought Content: Thought content normal. Judgment: Judgment normal. Vitals and nursing note reviewed. Exam conducted with a machine stemmer present. SEE PHEMALERT ABOVE SEE UA Assessment/Plan Assess/Plan SmartLinks: Diagnoses and all orders for this visit: Vaginal pain Vaginal discharge Dysuria Check UA + UCX if needed RX terazol 7 Continue with Kourtney Park for HTN mgmt WWE 11/2025 A total of 22 minutes was spent on this visit with at least more than 50% of the encounter spent incounseling and/or coordinating care including reviewing previous notes, counseling the patient on their identified issues as indicated in the note, discussing previous and/or ordered tests or imaging, prescribing/refilling medications, and documenting the findings in this note, as well as laying out a specific plan of action for this patient. documented in this encounter Plan of Treatment Upcoming Encounters Date Type Department Care Team (Late st Contact Info) Description 11/13/2025 2:00 PM EST Office Visit Obstetrics & Gynecology [address] [place] [address] Yao Jackson MD [address] [place] [address] documented as of this encounter Procedures Procedure Name Priority Date/Time Associated Diagnosis Comments POCT URINALYSIS DIPSTICK Routine 02/19/2025 2:06 PM EDT Vaginal pain documented in this encounter Results * (ABNORMAL) Urine dip (02/19/2025 2:06 PM EDT) POCT Urine Color Yellow POCT Urine Clarity Clear POCT Glucose Urine Negative Negative mg/dL POCT Bilirubin, Urine Negative Negative POCT Ketones, Urine Negative Negative mg/dL POCT Specific [place], Urine 1.010 POCT Blood, Urine Negative Negative POCT pH, Urine 5.5 5.0 to 8.0 POCT Protein, Urine Negative Negative mg/dL POCT Urobilinogen, Urine 0.2 0.2, 1 E.U./dL POCT Nitrite, Urine Negative Negative POCT Leukocyte Esterase, Urine Negative Negative Test Strip Lot Number [id number] Test Strip Lot Expiration 08/15/2025 Urine Urine specimen obtained by clean catch procedure / Unknown 02/19/2025 2:06 PM EDT Yao Jackson MD POINT OF CARE TEST ENTER/EDIT O RDERABLES Final Result documented in this encounter Visit Diagnoses Diagnosis Vaginal pain- Primary Unspecified symptom associated with female genital organs Vaginal discharge Leukorrhea, not specified as infective Dysuria documented in this encounter Additional Health Concerns Assessment Noted Time A fall risk assessment has been complete d for the patient 11/18/2024 1:08 PM EST A Body Mass Index follow-up plan has been documented for the patient 02/19/2025 2:17 PM EDT documented as of this encounter Care Teams Associate Professor Of Art Relationship Specialty Start Date End Date Kourtney Park PA [address] [place] [address] PCP - General 10/22/23 documented as of this encounter
--- NOTE | 2025-04-09 07:36 | MR_ITS ---
FINAL REPORT TECHNIQUE: Multiplanar MR without gadolinium enhancement CLINICAL HISTORY: LUMBAR RADICULOPATHY, lbp COMPARISON: None FINDINGS: Sagittal images show normal vertebral height. Alignment is normal. Marrow signal pattern is unremarkable. L1-2: Unremarkable L2-3: Unremarkable L3-4: Unremarkable L4-5: A minimal annular bulge is present with mild facet arthropathy. There is borderline central canal stenosis present. L5-S1: There is a mild annular bulge and mild facet arthropathy present with mild central canal stenosis. IMPRESSION: 1. Mild degenerative change as described above in the lower lumbar spine. Reviewed, Interpreted and Dictated by Lopez Morton MD Transcribed by Kamryn Cole Authenticated and [facility]
--- OUTSIDE RECORDS SUMMARY | 2025-04-09 07:38 | XMS_ITS | Clinical Summary ---
Author Organization [facility] Address [address] [place] [address] Care Team Providers Care Optical Instrument Inspector Name Role Phone Kourtney Park Primary Care Provider Allergies No known active allergies Medications MV-Min-Fe Fum-FA-DHA ( 1 PO) Take 1 tablet by mouth 1 (one) time each day. 07/12/2020 Active valACYclovir (Valtrex) 1 g tablet Take 1 tablet (1,000 mg) by mouth 1 (one) time each day. 90 tablet 3 02/21/2024 Active buPROPion XL (Wellbutrin XL) 150 MG 24 hr tabletIndication s:Anxiety Take 1 tablet (150 mg) by mouth 2 (two) times a day. Do not crush, chew, or split. 180 tablet 3 07/17/2024 07/17/20 25 Active progesterone (Prometrium) 200 MG capsule Take 1 capsule (200 mg) by mouth every night. 90 capsule 3 08/18/2024 Active thyroid (Nature-Throid) 32.5 MG tabletIndication s:Hypothyroidism , unspecified type Take 1 tablet (32.5 mg) by mouth 1 (one) time each day. 90 tablet 2 10/13/2024 Active levothyroxine (Synthroid) 75 MCG tablet Take 1 tablet (75 mcg) by mouth 1 (one) time each day before breakfast. 90 tablet 3 11/18/2024 11/18/19 26 Active Active Problems Problem Noted Date Diagnosed Date Supervision of other high risk pregnancies, thir d trimester 04/16/2024 Gestational diabetes mellitu s (GDM) controlled on oral hypoglycemic drug, antepartum 04/16/2024 History of delivery, currently 03/19/2024 BMI 40.0-44.9, adult 03/19/2024 21 weeks gestation of 02/20/2024 Asthma 12/19/2023 History of pre-eclampsia in prior , currently 12/19/2023 Uterine size-date discrepancy, antepartum 2023 Hypothyroid in , antepartum 11/21/2023 Anxiety 11/21/2023 Encounter for supervision of normal in second trimester 11/07/2023 Missed period 11/07/2023 Encounters Date Type Department Care Team Description 02/19/2025 1:15 PM EDT Office Visit Obstetrics & Gynecology [address] [place] [address] Yao Jackson MD Vaginal pain (Primary Dx); Vaginal discharge; Dysuria 02/19/2025 Results Follow-Up Obstetrics & Gynecology [address] [place] [address] Yao Jackson MD 02/19/2025 Travel from Last 3 Months Family History Medical History Relation Name Comments Spina bifida Cousin Anxiety and depression Father Hypertension, benign Father Diabetes Maternal Grandfather No Known Problems Maternal Grandmother Bleeding disorder Mother Hypertension, benign Mother No Known Problems Mother's Brother No Known Problems Paternal Grandfather No Known Problems Paternal Grandmother Cleft palate Son Relation Name Status Comments Brother Alive Cousin Alive Father Alive Maternal Grandfather Alive Maternal Grandmother Alive Mother Alive Mother's Brother Alive Paternal Grandfather Paternal Grandmother Alive Son Alive Social History Tobacco Use Types Packs/Day Years Used Date Smoking Tobacco: Former Cigarettes 0.3 4 0 04/2019 - 04/2023 Smokeless Tobacco: Former Quit: 10/2023 Tobacco Cessation:Counseling Given: Not Answered Alcohol Use Standard Drinks/Week Comments Not Currently 0 (1 standard drink = 0.6 oz pur e alcohol) PHQ-2 Answer Date Recorded Patient Health Questionnaire-2 Score 0 11/18/2024 [place] Depression Scale Answer Date Recorded [place] Depression Scale Total 2 07/17/2024 The thought of harming myself has occurred to me . Never 07/17/2024 Comments No Sex and Gender Information Value Date Recorded Sex Assigned at Female 11/05/2023 3:26 PM EST Legal Sex Female 7:40 PM EDT Gender Identity Female 11/05/2023 3:26 PM EST Sexual Orientation Straight 11/05/2023 3: 26 PM EST Last Filed Vital Signs Vital Sign Reading Time Taken Comments Blood Pressure 137/89 02/19/2025 1:28 PM EDT Pulse 95 02/19/2025 1:28 PM EDT Temperature 36.7 C (98.1 F) 02/19/2025 1:28 PM EDT Respiratory Rate - - Oxygen Saturation 100% 02/19/2025 1:28 PM EDT Inhaled Oxygen Concentration - - Weight 110 kg (242 lb 8.1 oz) 02/19/2025 1:28 PM EDT Height 162.6 cm (5' 4 ) 07/12/2020 3:38 PM EDT Body Mass Index 41.63 07/12/2020 3:38 PM EDT Plan of Treatment Upcoming Encounters Date Type Department Care Team (Late st Contact Info) Description 11/13/2025 2:00 PM EST Office Visit Obstetrics & Gynecology [address] [place] [address] Yao Jackson MD [address] [place] [address] Health Maintenance Due Date Last Done Comments [facility]-/Child/Adol SDOH Screenings 1997 [facility]-Hepatitis B Vaccines (2 of 3 - 3-dose series) 1997 1997 [facility]-IPV Vaccines (4 of 4 - 4-dose series) 2001 01/19/1998, 1997, 1997 [id number] Vaccine (#1) 2002 [facility]- SDOH Screenings 2015 [facility]-Adult SDOH Screenings 2015 [facility]-Pneumococcal Vaccine: Pediatrics (0 to 5 Years) and At-Risk Patients (6 to 49 Years) (1 of 2 - PCV) 01/11/2016 [facility]-Pap Smear 2018 [facility]-DTaP,Tdap,and Td Vaccines (5 - Tdap) 04/15/2018 04/15/2008, 1997, 1997, Additional history exists [facility]-Influenza Vaccine (Season Ended) 2025 08/12/2015, 12/30/2013, 09/04/2009, Additional history exists [facility]-Depression Screening 11/18/2025 11/18/2024, 12/2023 [facility]-Zoster Vaccines (1 of 2) 2047 05/09/2011, 01/19/1998 [facility]-HIB Vaccines Aged Out 1997, , 1997 No longer eligible based on patient's age to complete this topic HPV Vaccines Completed 11/09/2008, 06/15, 04/15/2008 [facility]-Hepatitis A Vaccines Completed 11/09/2008, 11/2007 [facility]-Varicella Vaccines Completed 05/09/2011, 1997 [facility]-HIV Screening Completed 11/07/2023, 12/03/2019 [facility]-Hepatitis C Screening Completed 11/07/2023, [facility]-Obesity Intervention Completed 025, 11/18/2024, 10/13/2024, Additional history exists [facility]-Rotavirus Vaccines Aged Out No lo nger eligible based on patient's age to complete this topic Procedures Procedure Name Priority Date/Time Associated Diagnosis Comments POCT URINALYSIS DIPSTICK Routine 02/19/2025 2:06 PM EDT Vaginal pain HEPATITIS C ANTIBODY W/REFLEX TO HCV QUANT PCR Routine 11/07/2023 10:34 AM EST Missed period HIV 1/2 ANTIBODY/ANTIGEN SCREEN WITH REFLEX TO HIV I/II DIFFERENTIATION Routine 11/07/2023 10:34 AM EST Missed period from Last 3 Months or Most Recently Relevant to Health Maintenance Results * (ABNORMAL) Urine dip (02/19/2025 2:06 PM EDT) POCT Urine Color Yellow POCT Urine Clarity Clear POCT Glucose Urine Negative Negative mg/dL POCT Bilirubin, Urine Negative Negative POCT Ketones, Urine Negative Negative mg/dL POCT Specific [place], Urine 1.010 POCT Blood, Urine Negative Negative POCT pH, Urine 5.5 5.0 to 8.0 POCT Protein, Urine Negative Negative mg/dL POCT Urobilinogen, Urine 0.2 0.2, 1 E.U./dL POCT Nitrite, Urine Negative Negative POCT Leukocyte Esterase, Urine Negative Negative Test Strip Lot Number [id number] Test Strip Lot Expiration 08/15/2025 Urine Urine specimen obtained by clean catch procedure / Unknown 02/19/2025 2:06 PM EDT Yao Jackson MD POINT OF CARE TEST ENTER/EDIT O RDERABLES Final Result * HIV 1 & 2 Antibody/Antigen Screen (11/07/2023 10:34 AM EST) Pathologist [facility] HIV 1 & 2 Antibody/Antigen Screen Non Reactive Non Reactive 11/07/2023 1:25 PM EST [facility] Comment:Screening for HIV 1 & 2 antibodies, and P24 antigen is NONREACTIVE. No confirmatory testing is required. Blood Venous blood specimen / Unknown Venipuncture / Unknown 11/07/2023 10:34 AM EST 11/07/2023 12:56 PM EST Ana Ray APRN, CNM LAB BLOOD ORDERABLE S Final Result Performing Organization Address City/[facility]/ZIP Co de Phone Number [facility] [address] [place] [address] * Hepatitis C Antibody w/Reflex to HCV Quant PCR (11/07/2023 10:34 AM EST) Hepatitis C Antibody Negative Negative 11/07/2023 1:25 PM EST [facility] Blood Venous blood specimen / Unknown Venipuncture / Unknown 11/07/2023 10:34 AM EST 11/07/2023 12:57 PM EST Ana Ray APRN, CNM LAB BLOOD ORDERABLE S Final Result [facility] [address] [place] [address] from Last 3 Months or Most Recently Relevant to Health Maintenance Insurance [employer] Care Teams Optical Instrument Inspector Relationship Specialty Start Date End Date Kourtney Park PA [address] [place] [address] PCP - General 10/22/23
--- OUTSIDE RECORDS SUMMARY | 2025-04-09 07:38 | XMS_ITS | Encounter Summary ---
Author Organization [facility] Address [address] [place] [address] Care Team Providers Care Mechanical Maintenance Instructor Name Role Phone Kourtney Park Primary Care Provider [phone] Encounter Details Date Type Department Care Team (Latest Contact Info) Description 02/19/2025 Travel Social History Tobacco Use Types Packs/Day Years Used Date Smoking Tobacco: Former Cigarettes 0.3 4 0 04/2019 - 04/2023 Smokeless Tobacco: Former Quit: 10/2023 Alcohol Use Standard Drinks/Week Comments Not Currently 0 (1 standard drink = 0.6 oz pur e alcohol) PHQ-2 Answer Date Recorded Patient Health Questionnaire-2 Score 0 11/18/2024 [place] Depression Scale Answer Date Recorded [place] Depression Scale Total 2 07/17/2024 The thought of harming myself has occurred to me . Never 07/17/2024 Comments No Sex and Gender Information Value Date Recorded Sex Assigned at Female 11/05/2023 3:26 PM EST Legal Sex Female 7:40 PM EDT Gender Identity Female 11/05/2023 3:26 PM EST Sexual Orientation Straight 11/05/2023 3: 26 PM EST documented as of this encounter Plan of Treatment Upcoming Encounters Date Type Department Care Team (Late st Contact Info) Description 11/13/2025 2:00 PM EST Office Visit Obstetrics & Gynecology [address] [place] [address] Yao Jackson MD [address] [place] [address] documented as of this encounter Visit Diagnoses Not on filedocumented in this encounter Additional Health Concerns Assessment Noted Time A fall risk assessment has been complete d for the patient 11/18/2024 1:08 PM EST A Body Mass Index follow-up plan has been documented for the patient 02/19/2025 2:17 PM EDT documented as of this encounter Care Teams Mechanical Maintenance Instructor Relationship Specialty Start Date End Date Kourtney Park PA [address] [place] [address] PCP - General 10/22/23 documented as of this encounter
--- OUTSIDE RECORDS SUMMARY | 2025-04-09 07:38 | XMS_ITS | Continuity of Care Document ---
Author Organization [place] [facility] [email or web address] [facility] Address [address] [place] [address] Assessment No assessment recorded. Plan of Treatment Reminders Order Date Submit Date Provider Last Modified By Organization Details Last Modified Time Details Appointments FOLLOW UP 15 2024 04:30P M Kourtney Park PA-C Not available Not available Not available Lab None recorded. Referral None recorded. Procedures None recorded. Surgeries None recorded. Imaging MRI, lumbar spine, w/o contrast 2024 025 [facility] ([facility]), [address], [place], [address], 04/07/2025 10:16:16 Medication Orders Adipex-P 37.5 mg tablet 2024 025 [facility], [address] [place] [address], [place] [address], [place], [address], 03/26/2025 16:56:04 ergocalci ferol (vitamin D2) 1,250 mcg (50,000 unit) capsule 2024 025 [facility], [address] [place] [address], [facility], [place], [address], 03/26/2025 17:11:47 Patient TargetsNo targets recorded. Patient Instructions Encounter Date Encounter Id Patient Instructions Last Modified By Organization Details Last Modified Time 03/26/2025 [id number] body mass index: care instructions [email or web address] Not available 03/26/2025 16:52:42 learning about healthy weight [email or web address] Not available 03/26/2025 16:52:42 Reason for Referral None Reported. Problems Name Problem SNOMED Code Status Onset Date Resolution Date Notes Provider Name and Address Organization Details Recorded Time Vitamin D deficiency 03761017 Active 2024 GAYATRI Vazquez [address] [place] [address], [phone], [employer] 11:56:09 Lumbar radiculopathy 596335901 Active 2024 GAYATRI Vazquez [address] [place] [address], [phone], [employer] 16:51:52 Problem Notes None recorded. Procedures Surgical History Date Name Laterality Status Provider Name and Address Organization Details Recorded Time Tonsillectomy completed Angela [email or web address] 02/26/2025 16:07:40 Tubal Ligation completed [employer] 02/26/2025 16:15:39 Imaging Results None recorded. Procedure Notes None recorded. Medical Equipment None Reported. Allergies No known drug allergies Medications Name Sig Start Date Stop Date Status Note LastModified by Organization Details LastModified Time labetalol 200 mg tablet 02/26 completed Not Available Not Available Not Available ibuprofen 800 mg tablet 02/26 completed Not Available Not Available Not Available Adipex-P 37.5 mg tablet Take 1 tablet every day by oral route for 30 days. 2024 active Not Available Not Available Not Avai lable oxycodone-ac etaminophen 5 mg-325 mg tablet 02/26 completed Not Available Not Available Not Available nifedipine ER 60 mg tablet,exten ded release 24 hr 02/26 completed Not Available Not Available Not Available levothyroxin e 50 mcg tablet 02/26 completed Not Available Not Available Not Available pantoprazole 40 mg tablet,delay ed release 02/26 completed Not Available Not Available Not Available gabapentin 300 mg capsule 02/26 completed Not Available Not Available Not Available mupirocin 2 % topical ointment 02/26 completed Not Available Not Available Not Available ergocalcifer ol (vitamin D2) 1,250 mcg (50,000 unit) capsule Take 1 capsule every week by oral route for 28 days. 2024 active Not Available Not Available Not Avai lable bupropion HCl XL 150 mg 24 hr tablet, extended release 02/26 completed Not Available Not Available Not Available Bystolic 5 mg tablet Take 1 tablet every day by oral route as needed for 30 days, for blood pressure . 2024 active Not Available Not Available Not Avai lable cholecalcife rol (vitamin D3) 50 mcg (2,000 unit) tablet Take 1 tablet every day by oral route for 90 days. 2024 active Not Available Not Available Not Avai lable Adthyza 32.5 mg tablet TAKE 1 TABLET BY MOUTH ONCE DAILY 02/26 completed Not Available Not Available Not Available Vitals Date Recorded Body height Body mass index (BMI) Body weight Body temperature Oxygen saturation Oxygen saturation in Arterial blood by Pulse oximetry Heart rate Systolic blood pressure Diastolic blood pressure Provider Name and Address Organization Details Last Updated DateTime 162.56 cm 40.2 kg/m2 872518. 05 g 98.2 [degF] 99 % 99 % 104 /min 114 mm[Hg] 84 mm[Hg] Angela [email or web address] 16:39:21 Social History Question Answer Notes LastModified by Organizat ion Details LastModified Time Tobacco Smoking Status Current Some Day Smoker Angela Quiroga [employer], [employer] 02/26/2025 16:07:40 Do You Have An Advance Directive? No Information not available 02/26/2025 Is Your Home Air Conditioned? Yes Information not available 02/26/2025 If You Are , What Was Your Level Of Alcohol Consumption Prior To ? None Information not available 02/26/2025 Do You Wear A Helmet When Biking? Yes Information not available 02/26/2025 Are You Blind Or Do You Have Difficulty Seeing? No Information not available 02/26/2025 What Is Your Level Of Caffeine Consumption? Moderate Information not available 02/26/2025 What Type Of Front Office Secretary Do You Use? Relative Information not available 02/26/2025 Have You Been To An Area Known To Be High Risk For COVID-19? No Information not available 02/26/2025 Are You Deaf Or Do You Have Serious Difficulty Hearing? No Information not available 02/26/2025 What Type Of Diet Are You Following? REGULAR Information not available 02/26/2025 How Many Days Of Moderate To Strenuous Exercise, Like A Brisk Walk, Did You Do In The Last 7 Days? 4 Information not available 02/26/2025 Have There Been Any Changes To Your Family Or Social Situation? No Information no t available 02/26/2025 Are There Any Guns Present In Your Home? No Information not available 02/26/2025 Which Of Your Hands Is Dominant? Right Information not available 02/26/2025 What Is Your Home Situation? Other Information not available 02/26/2025 Do You Have A Medical Power Of Orthopaedic Nurse? No Information not available 02/26/2025 What Was The Date Of Your Most Recent Tobacco Screening? 03/26/2025 Information not available 03/26/2025 What Is Your Current Pack Years? 10packyears Information not available 02/26/2025 Do You Have Any Pets? No Information not available 02/26/2025 Do You Use Protection During Sex? No Information not available 02/26/2025 What Is Your Relationship Status? Single Information not available 02/26/2025 Do You Use Your Seat Belt Or Car Seat Routinely? Yes Information not available 02/26/2025 Are You Sexually Active? Yes Information not available 02/26/2025 Do You Have Any Siblings? 2 Information not available 02/26/2025 Do You Have Smoke And Carbon Monoxide Detectors In Your Home? Yes Information not available 02/26/2025 At What Age Did You Start Smoking Tobacco? 19 Information not available 02/26/2025 Are You Passively Exposed To Smoke? No Information no t available 02/26/2025 Are There Any Smokers In Your House? No Information not available 02/26/2025 How Much Tobacco Do You Smoke? 1 PPW Information not available 02/26/2025 Do You Participate In Social Media? Yes Information not available 02/26/2025 Do You Use Sunscreen Routinely? Yes Information not available 02/26/2025 Has Tobacco Cessation Counseling Been Provided? Yes Information not available 02/26/2025 On What Date Was Tobacco Cessation Counseling Provided? 03/26/2025 Information not available 03/26/2025 How Many Years Have You Smoked Tobacco? 11 Information not available 02/26/2025 Have You Recently Traveled Abroad? No Information not available 02/26/2025 Do You Have Difficulty Walking Or Climbing Stairs? No Information not available 02/26/2025 Are You Currently In School? No Information not available 02/26/2025 What Contraceptive Method Was Reported At Start Of This Visit? Female Sterilization Information not available 02/26/2025 Do You Have Any Dietary Restrictions? No Information not available 02/26/2025 Sex: Unknown Functional Status Question Answer Note LastModified by Organizat ion Details LastModified Time Do you use any illicit or recreational drugs? No Information not available 02/26/2025 Do you or have you ever used any other forms of tobacco or nicotine? No Information not available 02/26/2025 What is your level of alcohol consumption? Occasional Information not available 02/26/2025 Are you currently employed? Yes Information not available 02/26/2025 Do you have transportation difficulties? No Information not available 02/26/2025 Are you able to walk? YESWOREST Information not available 02/26/2025 Do you have difficulty doing errands alone? No Information not available 02/26/2025 Are you able to care for yourself? Yes Information n ot available 02/26/2025 Do you have difficulty dressing or bathing? No Information not available 02/26/2025 What is your exercise level? Occasional Information not available 02/26/2025 Mental Status Question Answer Note LastModified by Organizat ion Details LastModified Time Do you feel stressed (tense, restless, nervous, or anxious, or unable to sleep at night)? [id number] Information not available 02/26/2025 Do you have difficulty concentrating, remembering or making decisions? No Information no t available 02/26/2025 Are you or have you been involved with bullying? No Information not available 02/26/2025 Family History Relationship Description Onset Age of this Age Resolved Age Notes LastModified by Organization Details LastModified Time Mother Asthma Not available 16:07:39 Mother Hypertensive disorder Not available 2024 16:07:39 Maternal Grandfather Diabetes mellitus Not available 2024 16:07:39 Father Anxiety disorder Not available 2024 16:07:39 Father Hypertensive disorder Not available 2024 16:07:39 Medical History Condition Response Coronary Artery Disease N Other N Gout N Kidney Stones N Blood Diseases N Hyperthyroidism N Blood Transfusion N Breast Cancer N Emergency room visit since last appointm ent. N COPD N Depression N Dermatologic Disorders N Lung Disease N Hypothyroidism N Developmental or Behavioral Disorders N Defects or Inherited Disease N Breast Problem N Difficulty Swallowing N Anesthesia Complications N History of STI N Anxiety Disorder Y Meniere's disease N Autoimmune disease N Muscle, Joint, or Bone Problems N Vision or Eye Problems N Arthritis N Infertility N Polyps N Mental Disorder N Congenital Anomalies N Acid Reflux (GERD) N Cancer N Stroke N Neurologic/Epilepsy N Endometriosis N Bladder or Kidney Problems N High Cholesterol N Liver Disease N Psychiatric/Mental Health Condition N Organ Transplant N Fibromyalgia N Headaches N Schizophrenia N Dialysis N Kidney Disease N Allergies/Hayfever N Heart Problems N Ear or Hearing Problems N Hospitalizations N Learning Disorder N Artificial Joints N Thyroid Problems Y GI Problems N Acne N ADD/ADHD N Eating Disorder N Anemia N Constipation N Mental Illness N Ovarian Cancer N Diabetes N Bedwetting N Hepatitis/Liver Disease N Tuberculosis N Eczema N Diverticulitis N Abuse/Domestic Violence N Asthma N Trauma/Violence N Substance Abuse N Reflux/GERD N Depression/ depression N Hepatitis N Heart Disease N Pulmonary Embolism N Tourette Syndrome N Chronic Ear Infections N Pre-Eclampsia N Hypertension N Chicken Pox N Autism Spectrum Disorder (ASD) N Osteoporosis N Thrombophilias N Gynecological History Statement/Question Response Abnormal Pap N Flow Heavy Date of LMP 03/19/2025 HPV Vaccine N Duration of Flow (days) 3-4 days Most Recent Mammogram Current Control Method Tubal Ligat ion Age at Menarche 14 Age at First Child 25 Frequency of Cycle (Q days) 26 Menses Monthly Y Date of Last Pap Smear LMP Definite Desired Control Method Other Obstetrics History GPAL:G 2 P 0 2 0 2 Type Value Multiple Births 0 Full Term 0 Induced 0 Spontaneous 0 Premature 2 Living 2 Ectopics 0 Total 2 Immunizations Vaccine Type Date Status Note Provider Nam e and Address Organization Details Recorded Time DTaP, unspecified formulation 7 completed Not Available [facility] 03/26/2025 16:30:43 Hep B, adolescent or pediatric 7 completed Not Available [facility] 03/26/2025 16:30:43 Hib, unspecified formulation 7 completed Not Available [facility] 03/26/2025 16:30:43 IPV 7 completed Not Available [facility] 03/26/2025 16:30:43 IPV 7 completed Not Available [facility] 03/26/2025 16:30:43 DTaP, unspecified formulation 7 completed Not Available [facility] 03/26/2025 16:30:43 Hib, unspecified formulation 7 completed Not Available [facility] 03/26/2025 16:30:43 DTaP, unspecified formulation 7 completed Not Available [facility] 03/26/2025 16:30:43 Hib, unspecified formulation 7 completed Not Available [facility] 03/26/2025 16:30:43 OPV 8 completed Not Available [facility] 03/26/2025 16:30:43 varicella 8 completed Not Available [facility] 03/26/2025 16:30:43 Influenza, split virus, trivalent, preservative 7 completed Not Available [facility] 03/26/2025 16:30:43 DTaP, unspecified formulation 8 completed Not Available [facility] 03/26/2025 16:30:43 meningococcal MCV4, unspecified formulation 8 completed Not Available [facility] 03/26/2025 16:30:43 HPV, quadrivalent 8 completed Not Available [facility] 03/26/2025 16:30:43 Hep A, ped/adol, 2 dose 8 completed Not Available [facility] 03/26/2025 16:30:43 HPV, quadrivalent 8 completed Not Available [facility] 03/26/2025 16:30:43 Influenza, live, trivalent, intranasal 8 completed Not Available [facility] 03/26/2025 16:30:43 HPV, quadrivalent 9 completed Not Available [facility] 03/26/2025 16:30:43 Hep A, ped/adol, 2 dose 9 completed Not Available [facility] 03/26/2025 16:30:43 Influenza, live, trivalent, intranasal 9 completed Not Available [facility] 03/26/2025 16:30:43 varicella 1 completed Not Available [facility] 03/26/2025 16:30:43 Influenza, live, trivalent, intranasal 4 completed Not Available [facility] 03/26/2025 16:30:43 Influenza, live, quadrivalent, intranasal 5 completed Not Available [facility] 03/26/2025 16:30:43 Past Encounters Encounter ID Performer Location Encounter Start Date Encounter Closed Date Diagnosis/Indication Diagnosis SNOMED-CT Code Diagnosis ICD10 Code Diagnosis Note [id number] GAYATRI Vazquez [facility] [address] [place], [place] [address] [address] 02/26/2025 15:55:56 02/26/2025 16:37:46 Past history of pre-eclampsia 4067389144 02061 Z86.79 Z87.59 Monitor BP at home - can take Bystolic if needed Body mass index 40+ - severely obese 270792276 Z68.41 History of thyroid disorder 872413845 Z86.39 HIV screening 027332664 Z11.4 Viral scre ening status 620225115 Z11.59 [id number] GAYATRI Vazquez [facility] [address] [place], [place] [address] [address] 03/26/2025 16:30:24 03/26/2025 16:55:53 Body mass index 40+ - severely obese 817457172 Z68.41 Lumbar radiculopathy 128 208452 M54.16 Vitamin D deficiency 347 10482 E55.9 Health Concerns Section Related Observation LastModified by Organization Janes ls LastModified Time None Recorded Concern Status LastModified by Organization Details LastModified Time None Recorded Payers Encounter Date Sequence Insurance Name Policy Number Policy Garcia Covered Member ID Garcia Member ID Guarantor Name 03/26/2025 1 [place] [id number] Barbijordan Bach [id number] Barbi Bach Notes Date Note Type Note Provider Name and Address Organization Details Recorded Time 03/26/2025 text/html Patient presents for followup.History of obesity. Taking Adipex. Has lost 9 pounds.States that since she had her baby in May, she has had severe low back pain. It radiates down her right leg. Her right leg is often numb and gives out on her. No incontinence but does have numbness of the inner thigh. Wonders if this is related to her epidural but has gotten worse instead of better. GAYATRI Vazquez [address] [place] [address], [place], [address], [facility] [employer] [place] [employer] 03/26/2025 17:12:43 OBGyn Episode No OBEpisode recorded.
--- OUTSIDE RECORDS SUMMARY | 2025-04-09 07:38 | XMS_ITS | Data Portability ---
Author Organization [employer] [place] [facility] Address [address] [place] [address] Assessment No assessment recorded. Plan of Treatment Reminders Order Date Submit Date Provider Last Modified By Organization Details Last Modified Time Details Appointments FOLLOW UP 15 2024 04:30P M Kourtney Park PA-C Not available Not available Not available Lab TSH, ultra-sen sitive, serum 2024 025 [facility]), [address] [place], [address], 02/27/2025 07:12:51 lipid panel, serum 2024 025 [facility], [address] [place], [address], 02/27/2025 07:12:50 CMP, serum or plasma 2024 025 [facility]), [address] [place], [address], 02/27/2025 07:12:50 CBC w/ auto diff 2024 025 [facility], [facility] [place], [address], 02/27/2025 07:12:49 vitamin D, 25-hydrox y, total, serum 2024 025 [facility], [facility] [place], [address], 02/27/2025 07:12:52 Hepatitis C IgG Ab, qual, serum 2024 025 [facility] [address] [place], [address], 02/27/2025 07:12:51 HIV 1 + 2, meaningfu l use set 2024 025 [facility] [address] [place], [address], 02/27/2025 07:12:52 Referral None recorded. Procedures None recorded. Surgeries None recorded. Imaging MRI, lumbar spine, w/o contrast [address] ([facility]), [address], [place], [address], 04/07/2025 10:16:16 Medication Orders Adipex-P 37.5 mg tablet 2024 025 [facility], [address] [place] [address], [facility], [place], [address], 03/26/2025 16:56:04 ergocalci ferol (vitamin D2) 1,250 mcg (50,000 unit) capsule [address], [address] [place] [address], [facility], [place], [address], 03/26/2025 17:11:47 Adipex-P 37.5 mg tablet 2024 025 [facility], [address] [place] [address], [facility], [place], [address], 02/26/2025 16:34:42 Bystolic 5 mg tablet 2024 025 [facility], [address] [place] [address], [facility], [place], [address], 02/26/2025 16:34:39 Patient TargetsNo targets recorded. Patient Instructions Encounter Date Encounter Id Patient Instructions Last Modified By Organization Details Last Modified Time 02/26/2025 [id number] body mass index: care instructions [email or web address] Not available 02/26/2025 16:29:02 learning about healthy weight Not available 02/26/2025 16:29:02 HIV testing: car e instructions [email or web address] Not available 02/26/2025 16:48:15 03/26/2025 [id number] body mass index: care instructions [email or web address] Not available 03/26/2025 16:52:42 learning about healthy weight Not available 03/26/2025 16:52:42 Reason for Referral None Reported. Results Created Date Observation Date Name Description Value Unit Range Abnormal Flag Note LastModifiedBy Organization Detail LastModifiedTime 02/27/2002/27/2025 CBC WITH DIFFE RENTI AL/PL ATELE T WBC 8.0 x10e3 /uL 3.4-10 .8 normal Not Available [facility] ([facility]) [address] [place], [address], 02/27/2025 07:12:49 02/27/2002/27/2025 CBC WITH DIFFE RENTI AL/PL ATELE T RBC 5.34 x10e6 /uL 3.77-5 .28 above high normal Not Available [facility] ([facility]) [address] [place], [address], 02/27/2025 07:12:49 02/27/2002/27/2025 CBC WITH DIFFE RENTI AL/PL ATELE T hemoglobin 13.5 g/dL 11.1-1 5.9 normal Not Available [facility] ([facility]) [address] [place], [address], 02/27/2025 07:12:49 02/27/2002/27/2025 CBC WITH DIFFE RENTI AL/PL ATELE T hematocrit 43.0 % 34.0-4 6.6 normal Not Available [facility] ([facility]) [address] [place], [address], 02/27/2025 07:12:49 02/27/2002/27/2025 CBC WITH DIFFE RENTI AL/PL ATELE T MCV 81 fL 79-97 normal Not Available [facility] ([facility]) [address] [place], [address], 02/27/2025 07:12:49 02/27/2002/27/2025 CBC WITH DIFFE RENTI AL/PL ATELE T MCH 25.3 pg 26.6-3 3.0 below low normal Not Available [facility] ([facility]) [address] [place], [address], 02/27/2025 07:12:49 02/27/2002/27/2025 CBC WITH DIFFE RENTI AL/PL ATELE T MCHC 31.4 g/dL 31.5-3 5.7 below low normal Not Available [facility] ([facility]) [address] [place], [address], 02/27/2025 07:12:49 02/27/2002/27/2025 CBC WITH DIFFE RENTI AL/PL ATELE T RDW 14.8 % 11.7-1 5.4 Not Available [facility] ([facility]) [address] [place], [address], 02/27/2025 07:12:49 02/27/2002/27/2025 CBC WITH DIFFE RENTI AL/PL ATELE T platelets 411 x10e3 /uL 150-45 0 normal Not Available [facility] ([facility]) [address] [place], [address], 02/27/2025 07:12:49 02/27/2002/27/2025 CBC WITH DIFFE RENTI AL/PL ATELE T neutrophils 66 % not estab. normal Not Available [facility] ([facility]) [address] [place], [address], 02/27/2025 07:12:49 02/27/2002/27/2025 CBC WITH DIFFE RENTI AL/PL ATELE T lymphs 29 % not estab. normal Not Available [facility] ([facility]) [address] [facility], [place], [address], 02/27/2025 07:12:49 02/27/2002/27/2025 CBC WITH DIFFE RENTI AL/PL ATELE T monocytes 4 % not estab. normal Not Available [facility] ([facility]) [address] [facility], [place], [address], 02/27/2025 07:12:49 02/27/2002/27/2025 CBC WITH DIFFE RENTI AL/PL ATELE T eos 1 % not estab. normal Not Available [facility] ([facility]) [address] [place], [address], 02/27/2025 07:12:49 02/27/2002/27/2025 CBC WITH DIFFE RENTI AL/PL ATELE T basos 0 % not estab. normal Not Available [facility] ([facility]) [address] [place], [address], 02/27/2025 07:12:49 02/27/2002/27/2025 CBC WITH DIFFE RENTI AL/PL ATELE T immature cells HOME LIGHTING ADVISER Not Available [facility] ([facility]) [address] [place], [address], 02/27/2025 07:12:49 02/27/2002/27/2025 CBC WITH DIFFE RENTI AL/PL ATELE T neutrophils (absolute) 5.2 x10e3 /uL 1.4-7. 0 normal Not Available [facility] ([facility]) [address] [place], [address], 02/27/2025 07:12:49 02/27/2002/27/2025 CBC WITH DIFFE RENTI AL/PL ATELE T lymphs (absolute) 2.3 x10e3 /uL 0.7-3. 1 normal Not Available [facility] ([facility]) [address] [place], [address], 02/27/2025 07:12:49 02/27/2002/27/2025 CBC WITH DIFFE RENTI AL/PL ATELE T monocytes(ab solute) 0.3 x10e3 /uL 0.1-0. 9 normal Not Available [facility] ([facility]) [address] [facility], [place], [address], 02/27/2025 07:12:49 02/27/2002/27/2025 CBC WITH DIFFE RENTI AL/PL ATELE T eos (absolute) 0.1 x10e3 /uL 0.0-0. 4 normal Not Available [facility] ([facility]) [address] [place], [address], 02/27/2025 07:12:49 02/27/2002/27/2025 CBC WITH DIFFE RENTI AL/PL ATELE T baso (absolute) 0.0 x10e3 /uL 0.0-0. 2 normal Not Available [facility] ([facility]) [address] [place], [address], 02/27/2025 07:12:49 02/27/2002/27/2025 CBC WITH DIFFE RENTI AL/PL ATELE T immature granulocytes 0 % not estab. Not Available [facility] ([facility]) [address] [place], [address], 02/27/2025 07:12:49 02/27/2002/27/2025 CBC WITH DIFFE RENTI AL/PL ATELE T immature grans (abs) 0.0 x10e3 /uL 0.0-0. 1 Not Available [facility] ([facility]) [address] [place], [address], 02/27/2025 07:12:49 02/27/20 25 02/27/2025 CBC WITH DIFFE RENTI AL/PL ATELE T NRBC HOME LIGHTING ADVISER Not Available [facility] ([facility]) [address] [facility], [place], [address], 02/27/2025 07:12:49 02/27/20 25 02/27/2025 CBC WITH DIFFE RENTI AL/PL ATELE T hematology comments: HOME LIGHTING ADVISER Not Available [facility] ([facility]) [address] [facility], [place], [address], 02/27/2025 07:12:49 02/27/20 25 02/27/2025 COMP. METAB OLIC PANEL (14) glucose 92 mg/dL 70-99 normal Not Available [facility] ([facility]) [address] [facility] [place], [address], 02/27/2025 07:12:50 02/27/20 25 02/27/2025 COMP. METAB OLIC PANEL (14) BUN 10 mg/dL 6-20 normal Not Available [facility] ([facility]) [address] [place], [address], 02/27/2025 07:12:50 02/27/20 25 02/27/2025 COMP. METAB OLIC PANEL (14) creatinine 0.65 mg/dL 0.57-1 .00 normal Not Available [facility] ([facility]) [address] [facility], [place], [address], 02/27/2025 07:12:50 02/27/20 25 02/27/2025 COMP. METAB OLIC PANEL (14) eGFR 123 mL/mi n/1.7 3 >59 normal Not Available [facility] ([facility]) [address] [facility] [place], [address], 02/27/2025 07:12:50 02/27/20 25 02/27/2025 COMP. METAB OLIC PANEL (14) BUN/creatini ne ratio 15 9-23 normal Not Available [facility] ([facility]) [address] [facility] [place], [address], 02/27/2025 07:12:50 02/27/20 25 02/27/2025 COMP. METAB OLIC PANEL (14) sodium 140 mmol/ L 134-14 4 normal Not Available [facility] ([facility]) [address] [facility] [place], [address], 02/27/2025 07:12:50 02/27/20 25 02/27/2025 COMP. METAB OLIC PANEL (14) potassium 4.2 mmol/ L 3.5-5. 2 normal Not Available [facility] ([facility]) [address] [facility], [place], [address], 02/27/2025 07:12:50 02/27/20 25 02/27/2025 COMP. METAB OLIC PANEL (14) chloride 104 mmol/ L 96-106 normal Not Available [facility] ([facility]) [address] [facility] [place], [address], 02/27/2025 07:12:50 02/27/20 25 02/27/2025 COMP. METAB OLIC PANEL (14) carbon dioxide, total 21 mmol/ L 20-29 normal Not Available [facility] ([facility]) [address] [facility] [place], [address], 02/27/2025 07:12:50 02/27/20 25 02/27/2025 COMP. METAB OLIC PANEL (14) calcium 9.5 mg/dL 8.7-10 .2 normal Not Available [facility] ([facility]) [address] [facility] [place], [address], 02/27/2025 07:12:50 02/27/20 25 02/27/2025 COMP. METAB OLIC PANEL (14) protein, total 6.9 g/dL 6.0-8. 5 normal Not Available [facility] ([facility]) [address] [place], [address], 02/27/2025 07:12:50 02/27/20 25 02/27/2025 COMP. METAB OLIC PANEL (14) albumin 4.6 g/dL 4.0-5. 0 normal Not Available [facility] ([facility]) [address] [place], [address], 02/27/2025 07:12:50 02/27/20 25 02/27/2025 COMP. METAB OLIC PANEL (14) globulin, total 2.3 g/dL 1.5-4. 5 Not Available [facility] ([facility]) [address] [facility] [place], [address], 02/27/2025 07:12:50 02/27/20 25 02/27/2025 COMP. METAB OLIC PANEL (14) bilirubin, total 0.3 mg/dL 0.0-1. 2 normal Not Available [facility] ([facility]) [address] [facility] [place], [address], 02/27/2025 07:12:50 02/27/20 25 02/27/2025 COMP. METAB OLIC PANEL (14) alkaline phosphatase 70 IU/L 44-121 normal Not Available [facility] ([facility]) [address] [facility] [place], [address], 02/27/2025 07:12:50 02/27/20 25 02/27/2025 COMP. METAB OLIC PANEL (14) AST (SGOT) 15 IU/L 0-40 normal Not Available [facility] ([facility]) [address] [facility] [place], [address], 02/27/2025 07:12:50 02/27/20 25 02/27/2025 COMP. METAB OLIC PANEL (14) ALT (SGPT) 24 IU/L 0-32 normal Not Available [facility] ([facility]) [address] [facility] [place], [address], 02/27/2025 07:12:50 02/27/20 25 02/27/2025 LIPID PANEL cholesterol, total 204 mg/dL 100-19 9 above high normal Not Available [facility] ([facility]) [address] [facility] [place], [address], 02/27/2025 07:12:50 02/27/20 25 02/27/2025 LIPID PANEL triglyceride s 225 mg/dL 0-149 above high normal Not Available [facility] ([facility]) [address] [place], [address], 02/27/2025 07:12:50 02/27/20 25 02/27/2025 LIPID PANEL HDL cholesterol 43 mg/dL >39 normal Not Available [facility] ([facility]) [address] [place], [address], 02/27/2025 07:12:50 02/27/20 25 02/27/2025 LIPID PANEL VLDL cholesterol jennifer 40 mg/dL 5-40 Not Available [facility] ([facility]) [address] [place], [address], 02/27/2025 07:12:50 02/27/20 25 02/27/2025 LIPID PANEL LDL chol calc ([facility]) 121 mg/dL 0-99 above high normal Not Available [facility] ([facility]) [address] [place], [address], 02/27/2025 07:12:50 02/27/20 25 02/27/2025 LIPID PANEL LDL calc comment: HOME LIGHTING ADVISER Not Available [facility] ([facility]) [address] [place], [address], 02/27/2025 07:12:50 02/27/20 25 02/27/2025 HCV ANTIB CAROLINE DASHA DE(PC R/GEN O) HCV Ab Non Reacti ve non reacti ve Not Available [facility] ([facility]) [address] [facility], [place], [address], 02/27/2025 07:12:51 02/27/2002/27/2025 HCV ANTIB CAROLINE CASCA DE(PC R/GEN O) interpretati on: Commen t Not infec chad with HCV unles s early or acute infec tion is suspe cted (whic h may be delay ed in an immun ocomp romis ed indiv idual ), or other evide nce exist s to indic ate HCV infec tion. Not Available [facility] ([facility]) [address] [facility], [place], [address], 02/27/2025 07:12:51 02/27/2002/27/2025 TSH TSH 2.330 uIU/m L 0.450- 4.500 normal Not Available [facility] ([facility]) [address] [facility], [place], [address], 02/27/2025 07:12:51 02/27/2002/27/2025 VITAM IN D, 25-HY DROXY vitamin D, 25-hydroxy 23.2 NG/mL 30.0-1 00.0 below low normal Vitam in D defic iency has been defin ed by the Insti tute of Medic ine and an Endoc rine Socie ty pract ice guide line as a level of serum 25-OH vitam in D less than 20 ng/mL (1,2) . The Endoc rine Socie ty went on to furth er defin e vitam in D insuf ficie ncy as a level betwe en 21 and 29 ng/mL (2). 1. IOM (Inst itute of Medic ine). 2010. Dieta ry refer ence intak es for calci um and D. Moe cabrales [place]: The Natio nal [facility] Press . 2. Yung reid [place], Syeda maurice [place], Bishop off-F errar i WAITE, et al. Evalu ation , treat ment, and preve ntion of vitam in D defic iency : an Endoc rine Socie ty clini jennifer pract ice guide line. JCEM. 2010; 96(7) :1911 -30. Not Available [facility] ([facility]) [address] [facility], [place], [address], 02/27/2025 07:12:52 02/27/20 25 02/27/2025 HIV AB/P2 4 AG WITH REFLE X HIV Ab/P24 Ag screen Non Reacti ve non reacti ve HIV Negat drew HIV-1 /HIV- 2 antib odies and HIV-1 p24 antig en were NOT detec chad. There is no labor atory evide nce of HIV infec tion. Not Available [facility] ([facility]) [address] [facility], [place], [address], 02/27/2025 07:12:52 Result Notes None recorded. Problems Name Problem SNOMED Code Status Onset Date Resolution Date Notes Provider Name and Address Organization Details Recorded Time Vitamin D deficiency 21887964 Active 2024 GAYATRI Vazquez [address] [place] [address], [address], [employer] 11:56:09 Lumbar radiculopathy 724428476 Active 2024 GAYATRI Vazquez [address] [place] [address], [address], [employer] 16:51:52 Problem Notes None recorded. Procedures Surgical History Date Name Laterality Status Provider Name and Address Organization Details Recorded Time Tonsillectomy completed [employer] 02/26/2025 16:07:40 Tubal Ligation completed [employer] 02/26/2025 16:15:39 Imaging Results None recorded. [...] Available Not Available Vitals Date Recorded Body weight Body mass index (BMI) Body height Oxygen saturation Oxygen saturation in Arterial blood by Pulse oximetry Heart rate Body temperature Systolic blood pressure Diastolic blood pressure Provider Name and Address Organization Details Last Updated DateTime 5 207909. 1 g 41.8 kg/m2 162.56 cm 99 % 99 % 84 /min 98 [degF] 104 mm[Hg] 72 mm[Hg] [facility] [employer]. 5 16:13:12 Date Recorded Body height Body mass index (BMI) Body weight Body temperature Oxygen saturation Oxygen saturation in Arterial blood by Pulse oximetry Heart rate Systolic blood pressure Diastolic blood pressure Provider Name and Address Organization Details Last Updated DateTime 162.56 cm 40.2 kg/m2 012720. 05 g 98.2 [degF] 99 % 99 % 104 /min 114 mm[Hg] 84 mm[Hg] Angela Quiroga [employer]. 16:39:21 Social History Question Answer Notes LastModified by Organizat ion Details LastModified Time Tobacco Smoking Status Current Some Day Smoker Angela Quiroga rufina, [employer]. 02/26/2025 16:07:40 Do You Have An Advance [...] Information not available 02/26/2025 What Type Of Clerical Warehouseman Do You Use? Relative Information not available [...] Do You Have A Medical Power Of Assistant Associate Full Professor? No Information not available 02/26/2025 What Was [...] anxious, or unable to sleep at night)? [id number] Information not available 02/26/2025 Do you have [...] DTaP, unspecified formulation 7 completed Not Available [facility] 03/26/2025 16:30:43 Hep B, adolescent or pediatric 7 completed Not Available [facility] 03/26/2025 16:30:43 Hib, unspecified formulation 7 completed Not Available [facility] 03/26/2025 16:30:43 IPV 7 completed Not Available [facility] 03/26/2025 16:30:43 IPV 7 completed Not Available [facility] 03/26/2025 16:30:43 DTaP, unspecified formulation 7 completed Not Available [facility] 03/26/2025 16:30:43 Hib, unspecified formulation 7 completed Not Available [facility] 03/26/2025 16:30:43 DTaP, unspecified formulation 7 completed Not Available [facility] 03/26/2025 16:30:43 Hib, unspecified formulation 7 completed Not Available [facility] 03/26/2025 16:30:43 OPV 8 completed Not Available [facility] 03/26/2025 16:30:43 varicella 8 completed Not Available [facility] 03/26/2025 16:30:43 Influenza, split virus, trivalent, preservative 7 completed Not Available [facility] 03/26/2025 16:30:43 DTaP, unspecified formulation 8 completed Not Available [facility] 03/26/2025 16:30:43 meningococcal MCV4, unspecified formulation 8 completed Not Available [facility] 03/26/2025 16:30:43 HPV, quadrivalent 8 completed Not Available [facility] 03/26/2025 16:30:43 Hep A, ped/adol, 2 dose 8 completed Not Available [facility] 03/26/2025 16:30:43 HPV, quadrivalent 8 completed Not Available [facility] 03/26/2025 16:30:43 Influenza, live, trivalent, intranasal 8 completed Not Available [facility] 03/26/2025 16:30:43 HPV, quadrivalent 9 completed Not Available [facility] 03/26/2025 16:30:43 Hep A, ped/adol, 2 dose 9 completed Not Available [facility] 03/26/2025 16:30:43 Influenza, live, trivalent, intranasal 9 completed Not Available [facility] 03/26/2025 16:30:43 varicella 1 completed Not Available [facility] 03/26/2025 16:30:43 Influenza, live, trivalent, intranasal 4 completed Not Available [facility] 03/26/2025 16:30:43 Influenza, live, quadrivalent, intranasal 5 completed Not Available [facility] 03/26/2025 16:30:43 Past Encounters Encounter ID Performer Location Encounter Start Date Encounter Closed Date Diagnosis/Indication Diagnosis SNOMED-CT Code Diagnosis ICD10 Code Diagnosis Note [id number] GAYATRI Vazquez [facility] [address] [place] [address] 02/26/2025 15:55:56 02/26/2025 16:37:46 Past history of pre-eclampsia 8313821647 60955 Z86.79 Z87.59 Monitor BP at home - can take Bystolic if needed Body mass index 40+ - severely obese 846630744 Z68.41 History of thyroid disorder 027154318 Z86.39 HIV screening 764541372 Z11.4 Viral scre ening status 887201077 Z11.[id number] [facility] [address] [place] [id number] 03/26/2025 16:30:24 03/26/2025 16:55:53 Body mass index 40+ - severely obese 435876056 Z68.41 Lumbar radiculopathy 128 285338 M54.16 Vitamin D deficiency 347 26845 E55.9 Health Concerns Section Related Observation LastModified by Organization Detai ls LastModified Time None Recorded Concern Status LastModified by Organization Details LastModified Time None Recorded Advance Directives Directive N: Payers Insurance Date Sequence Insurance Name Policy Number Policy Garcia Covered Member ID Garcia Member ID Guarantor Name 03/23/2025 1 TRICIA FLOWERS (PPO) [id number] Barbi Bach [id number] Barbi Bach Notes Date Note Type Note Provider Name and Address Organization Details Recorded Time 02/26/2025 text/html Patient presents to establish care.She would like help with weight loss.Had elevated blood pressure after delivery of her son in May but it has been ok for the past few months.History of hypothyroidism. Needs labs. GAYATRI Vazquez [address] [place], [address], [employer] 02/27/2025 17:38:10 03/26/2025 text/html Patient presents for followup.History of [...] gotten worse instead of better. GAYATRI Vazquez [address] [place], [address], [employer] 03/26/2025 17:12:43 OBGyn Episode No OBEpisode recorded.
--- OUTSIDE RECORDS SUMMARY | 2025-04-09 07:38 | XMS_ITS | Encounter Summary ---
Author Organization [facility] Address [address] [place] [address] Care Team Providers Care Vertical Punch Operator Name Role Phone Kourtney Park Primary Care Provider Encounter Details Date Type Department Care Team (Late st Contact Info) Description 02/19/2025 Results Follow-Up Obstetrics & Gynecology [address] [place] [address] Yao Jackson MD [address] [place] [address] Social History Tobacco Use Types Packs/Day Years Used Date Smoking Tobacco: Former Cigarettes 0.3 4 0 04/2019 - 04/2023 Smokeless Tobacco: Former Quit: 10/2023 Alcohol Use Standard Drinks/Week Comments Not Currently 0 (1 standard drink = 0.6 oz pur e alcohol) PHQ-2 Answer Date Recorded Patient Health Questionnaire-2 Score 0 11/18/2024 [place] Depression Scale Answer Date Recorded [place] Depression Scale Total 2 07/17/2024 The thought [...] Visit Obstetrics & Gynecology [address] [place] [address] Yao Jackson MD [address] [place] [address] documented as of this encounter Visit Diagnoses Not on filedocumented in this encounter Additional Health Concerns Assessment Noted Time A fall risk assessment has been complete d for the patient 11/18/2024 1:08 PM EST A Body Mass Index follow-up plan has been documented for the patient 02/19/2025 2:17 PM EDT documented as of this encounter Care Teams Vertical Punch Operator Relationship Specialty Start Date End Date Kourtney Park PA [address] [place] [address] PCP - General 10/22/23 documented as of this encounter
== END 2025-04-09 23:59 | disposition home or self-care (01) ==
LOC: RAD 07:35
PROVIDERS: PCP Physician Assistant; Visit Provider Physician Assistant
DX: M47.26 Other spondylosis with radiculopathy, lumbar region (principal)
CPT/HCPCS: 72148

== ENCOUNTER 2025-09-06 18:05 | Emergency (ER) | payer BC, SELFPAY ==
--- OUTSIDE RECORDS SUMMARY | 2025-09-06 18:25 | XMS_ITS | Continuity of Care Document ---
Author Organization [place] - [employer] [facility] Address [address] [place] [address] Assessment No assessment recorded. Plan of Treatment Reminders Order Date Submit Date Provider Last Modified By Organization Details Last Modified Time Details Appointments FOLLOW UP 2025 03:00P Roger Park PA-C Not available Not available Not available Lab H pylori urea breath test, co2 infrared 2024 [place] [facility], [address] [place] [address], [place], [address], 08/30/2025 13:06:58 Referral None recorded. Procedures None recorded. Surgeries None recorded. Imaging US, abdomen 2024 025 [facility] ([facility]), [address], [place], [address], 08/31/2025 08:30:17 Medication Orders Adipex-P 37.5 mg tablet 2024 025 [facility], [address], [address], 08/28/2025 15:18:43 Protonix 40 mg tablet,de layed release 2024 025 [facility], [address] [facility] [address], [place], [address], 08/28/2025 14:44:25 Carafate 1 gram tablet 2024 025 [facility], [address], [address], 08/28/2025 14:44:41 Patient TargetsNo targets recorded. Patient Instructions Encounter Date Encounter Id Patient Instructions Last Modified By Organization Details Last Modified Time 08/28/2025 [id number] hypothyroidism: care instructions [email or web address] Not available 08/28/2025 17:35:36 body mass index: care instructions [email or web address] Not available 08/28/2025 15:18:42 learning about healthy weight [email or web address] Not available 08/28/2025 15:18:42 Reason for Referral None Reported. Results Created Date Observation Date Name Description Value Unit Range Abnormal Flag Note LastModifiedBy Organization Detail LastModifiedTime 08/28/2008/30/2025 H PYLOR I BREAT H TEST H pylori breath test Negati ve negati ve Not Available [facility] ([facility]) [address] [facility], [place], [address], 08/30/2025 13:06:58 Result Notes None recorded. Problems Name Problem SNOMED Code Status Onset Date Resolution Date Notes Provider Name and Address Organization Details Recorded Time Vitamin D deficiency 07785058 Active 2024 GAYATRI Vazquez [address] [place] [address], [address], [employer] 11:56:09 Lumbar radiculopathy 774541869 Active 2024 GAYATRI Vazquez [address] [place] [address], [address] 8, [employer] 16:51:52 Easy bruising 698247388 Active 2024 GAYATRI Vazquez [address] [place] [address], 605[address] 8, [employer] 11:48:05 Lymphadenopath y 58334891 Active 2024 GAYATRI Vazquez [address] [place] [address], 68[address] 8, [employer] 09/25/202 5 11:48:15 Thyroid function tests abnormal 379597211 Active 2024 GAYATRI Vazquez [address] [place] [address], [address] 8, [employer] 11:48:27 Hypothyroidism 02225917 Active 2024 GAYATRI Vazquez [address] [place] [address], [address] 8, [employer] 14:08:53 Iron deficiency anemia 46903841 Active 2024 GAYATRI Vazquez [address] [place] [address], 29474-495 8, [employer] 14:09:01 Epigastric pain 75265950 Active 2024 GAYATRI Vazquez [address] [place] [address], 25213-061 8, [employer] 14:43:47 Problem Notes None recorded. Procedures Surgical History Date Name Laterality Status Provider Name and Address Organization Details Recorded Time Tonsillectomy completed [employer] 02/26/2025 16:07:40 Tubal Ligation completed [employer] 02/26/2025 16:15:39 Imaging Results None recorded. Procedure Notes None recorded. Medical Equipment None Reported. Allergies No known drug allergies Medications Name Sig Start Date Stop Date Status Note LastModified by Organization Details LastModified Time Protonix 40 mg tablet,ivan yed release Take 1 tablet every day by oral route for 90 days. 2024 active Not Available Not Available Not Avai lable labetalol 200 mg tablet 02/26 completed Not Available Not Available Not Available Carafate 1 gram tablet Take 1 tablet 3 times a day by oral route for 30 days. 2024 active Not Available Not Available Not Avai lable ibuprofen 800 mg tablet 02/26 completed Not Available Not Available Not Available Adipex-P 37.5 mg tablet Take 1 tablet every day by oral route for 30 days. 2024 active Not Available Not Available Not Avai lable Medrol (Sacha) 4 mg tablets in a dose pack Take 1 dose pk by oral route as directed for 6 days. 07/22 completed Not Available Not Available Not Available Depo-Medrol 80 mg/mL suspension for injection Take 1 mL by injection route. 07/13 completed Not Available Not Available Not Available oxycodone-a cetaminophe n 5 mg-325 mg tablet 02/26 completed Not Available Not Available Not Available nifedipine ER 60 mg tablet,exte nded release 24 hr 02/26 completed Not Available Not Available Not Available Synthroid 25 mcg tablet Take 1 tablet every day by oral route for 30 days. 2024 active Not Available Not Available Not Avai lable levothyroxi ne 50 mcg tablet 02/26 completed Not Available Not Available Not Available gabapentin 300 mg capsule 02/26 completed Not Available Not Available Not Available mupirocin 2 % topical ointment 02/26 completed Not Available Not Available Not Available ergocalcife rol (vitamin D2) 1,250 mcg (50,000 unit) capsule Take 1 capsule every week by oral route for 28 days. 2024 active Not Available Not Available Not Avai lable ketorolac 60 mg/2 mL intramuscul ar solution Inject 2 mL by intramusc ular route. 07/13 completed Not Available Not Available Not Available bupropion HCl XL 150 mg 24 hr tablet, extended release 02/26 completed Not Available Not Available Not Available Bystolic 5 mg tablet Take 1 tablet every day by oral route as needed for 30 days, for blood pressure. 2024 active Not Available Not Available Not Avai lable cholecalcif renetta (vitamin D3) 50 mcg (2,000 unit) tablet Take 1 tablet every day by oral route for 90 days. 2024 active Not Available Not Available Not Avai lable Adthyza 32.5 mg tablet TAKE 1 TABLET BY MOUTH ONCE DAILY 02/26 completed Not Available Not Available Not Available Slow Fe 137 mg (45 mg iron) tablet,exte nded release Take 1 tablet every day by oral route for 30 days. 08/28 completed Not Available Not Available Not Available Vitals Date Recorded Body height Body mass index (BMI) Body weight Oxygen saturation Heart rate Body temperature Systolic And Diastolic Provider Name and Address Organization Details Last Updated DateTime 162.56 cm 36.9 kg/m2 07259.0 8 g 98 % 100 /min 98.2 [degF] 138/76 mm[Hg] Angela Quiroga [employer] 14:23:20 Social History Question Answer Notes LastModified by Organizat ion Details LastModified Time Tobacco Smoking Status Current Some Day Smoker Angela Quiroga rufina, [employer] 02/26/2025 16:07:40 Do You Have An Advance [...] Caffeine Consumption? Moderate Information not available 02/26/2025 Are You A Caregiver? 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 Right Information not available 02/26/2025 Do You Engage In Moderate/heavy Exercise (e.g. Brisk Walk, Jogging, Strength Training, Etc)? No Information not available 08/28/2025 What Is Your Home Situation? Other Information not available 02/26/2025 Do You Have A Medical Power Of Hvac Residential Service Technician? No Information not available 02/26/2025 What Was The Date Of Your Most Recent Tobacco Screening? 08/28/2025 Information not available 08/28/2025 What Is Your Current Pack Years? 10packyears Information not available 02/26/2025 Do You Have Any Pets? No Information not available 02/26/2025 Do You Use Protection During Sex? No Information not available 02/26/2025 What Is Your Relationship Status? Single Information not available 02/26/2025 Do You Wear A Seatbelt When Driving Or As A Passenger? Yes Information not available 08/28/2025 Do You Use Your Seat Belt Or [...] What Date Was Tobacco Cessation Counseling Provided? 08/28/2025 Information not available 08/28/2025 How Many Years Have You Smoked Tobacco? 11 Information not available 02/26/2025 Have You Recently Traveled Abroad? No Information not available 02/26/2025 Do You Have Difficulty Walking Or Climbing Stairs? No Information not available 02/26/2025 Are You Currently In School? No Information not available 02/26/2025 What Contraceptive Method Was Reported At Start Of This Visit? Female Sterilization Information not available 02/26/2025 Do You Feel Safe In Your Home? Yes Information not available 08/28/2025 Do You Have Any Dietary Restrictions? No Information not available 02/26/2025 Sex: Unknown Functional Status Question Answer Note LastModified by Organizat ion Details LastModified Time Do you use any illicit or recreational drugs? No Information not available 02/26/2025 Do you feel safe in your relationship? Yes Information n ot available 08/28/2025 Do you or have you ever used any other forms of tobacco or nicotine? No Information not available 02/26/2025 What is your level of alcohol consumption? Occasional Information not available 02/26/2025 Are you currently employed? Yes Information not available 02/26/2025 Do you have transportation difficulties? No Information not available 02/26/2025 Are you able to walk independently without assistance or assistive devices? YESWOREST Information not available 02/26/2025 Do you have difficulty doing errands alone? No Information not available 02/26/2025 Are you able to care for yourself independently? Yes Information not available 02/26/2025 Do you have difficulty dressing, bathing, grooming, or toileting? No Information not available 02/26/2025 What is your exercise level? Occasional Information not available 02/26/2025 Mental Status Question Answer Note LastModified by Organizat ion Details LastModified Time Do you feel stressed (tense, restless, nervous, or anxious, or unable to sleep at night)? [id number] Information not available 02/26/2025 Do you have [...] Stones N Blood Diseases N Hyperthyroidism N Breast Cancer N Blood Transfusion N Emergency room visit since last appointm ent. N Hypothyroidism N Lung Disease N Dermatologic Disorders N Depression N COPD N Developmental or Behavioral Disorders N Defects [...] N High Cholesterol N Liver Disease N Organ Transplant N Psychiatric/Mental Health Condition N Fibromyalgia N Headaches N Schizophrenia N [...] N Pulmonary Embolism N Tourette Syndrome N Pre-Eclampsia N Hypertension N Chronic Ear Infections N Osteoporosis N Chicken Pox N Autism Spectrum Disorder (ASD) N Thrombophilias N Gynecological History Statement/Question Response Abnormal Pap N Flow Heavy Date of LMP 08/21/2025 HPV Vaccine N Duration of Flow (days) [...] DTaP, unspecified formulation 7 completed Not Available [facility] 08/28/2025 14:11:08 Hep B, adolescent or pediatric 7 completed Not Available [facility] 08/28/2025 14:11:08 Hib, unspecified formulation 7 completed Not Available [facility] 08/28/2025 14:11:08 IPV 7 completed Not Available [facility] 08/28/2025 14:11:08 IPV 7 completed Not Available [facility] 08/28/2025 14:11:08 DTaP, unspecified formulation 7 completed Not Available [facility] 08/28/2025 14:11:08 Hib, unspecified formulation 7 completed Not Available [facility] 08/28/2025 14:11:08 DTaP, unspecified formulation 7 completed Not Available [facility] 08/28/2025 14:11:08 Hib, unspecified formulation 7 completed Not Available [facility] 08/28/2025 14:11:08 OPV, trivalent 8 completed Not Available [facility] 08/28/2025 14:11:08 varicella 8 completed Not Available [facility] 08/28/2025 14:11:08 Influenza, split virus, trivalent, preservative 7 completed Not Available [facility] 08/28/2025 14:11:08 DTaP, unspecified formulation 8 completed Not Available [facility] 08/28/2025 14:11:08 meningococcal MCV4, unspecified formulation 8 completed Not Available [facility] 08/28/2025 14:11:08 HPV, quadrivalent 8 completed Not Available [facility] 08/28/2025 14:11:08 Hep A, ped/adol, 2 dose 8 completed Not Available [facility] 08/28/2025 14:11:08 HPV, quadrivalent 8 completed Not Available [facility] 08/28/2025 14:11:08 Influenza, live, trivalent, intranasal, PF 8 completed Not Available [facility] 08/28/2025 14:11:08 HPV, quadrivalent 9 completed Not Available [facility] 08/28/2025 14:11:08 Hep A, ped/adol, 2 dose 9 completed Not Available [facility] 08/28/2025 14:11:08 Influenza, live, trivalent, intranasal, PF 9 completed Not Available [facility] 08/28/2025 14:11:08 varicella 1 completed Not Available [facility] 08/28/2025 14:11:08 Influenza, live, trivalent, intranasal, PF 4 completed Not Available [facility] 08/28/2025 14:11:08 Influenza, live, quadrivalent, intranasal 5 completed Not Available [facility] 08/28/2025 14:11:08 Past Encounters Encounter ID Performer Location Encounter Start Date Encounter Closed Date Diagnosis/Indication Diagnosis SNOMED-CT Code Diagnosis ICD10 Code Diagnosis IMO Codes Diagnosis Note [id number] GAYATRI Vazquez [address] [address] 08/28/2025 14:01:51 08/28/2025 16:16:17 Epigastric pain 75454877 R10.13 93038 Body mass index 30+ - obesity 005711548 Z68.36 461761 Body mass index 40+ - severely obese 550641257 Z68.41 Hypothyroidism 03764980 E03.9 17651575 Health Concerns Section Related Observation LastModified by Organization Detai ls LastModified Time None Recorded Concern Status LastModified by Organization Details LastModified Time None Recorded Payers Encounter Date Sequence Insurance Name Policy Number Policy Garcia Covered Member ID Garcia Member ID Guarantor Name 08/28/2025 1 TRICIA FLOWERS (PPMarleny) [id number] Barbi Bach [id number] Barbi Bach Notes Date Note Type Note Provider Name and Address Organization Details Recorded Time 08/28/2025 text/html ROS as noted in the HPI Patient presents for followupRecently diagnosed with hypothyroidism. Doing well with Synthriod.Also had iron deficiency anemia. Started slow Fe. Caused stomach cramping, nausea, dark stools. Stopped taking it about a month ago. Still has epigastric pain, radiates to back. Feels full quickly when she eats. Has had reflux. It even came out her nose. Has bloating, gassiness. Had a baby about 6 months ago. GAYATRI Vazquez [address] [place] [address], [address], [facility] [employer] 08/28/2025 17:35:38 OBGyn Episode No OBEpisode recorded.
--- OUTSIDE RECORDS SUMMARY | 2025-09-06 18:25 | XMS_ITS | Data Portability ---
Author Organization [facility] Address [address] [place] [address] Assessment No assessment recorded. Plan of Treatment Reminders Order Date Submit Date Provider Last Modified By Organization Details Last Modified Time Details Appointments FOLLOW UP 30 2025 03:00P Roger Park PA-C Not available Not available Not available Lab H pylori urea breath test, co2 infrared 2024 025 [facility], [address] [place] [address], [id number], 08/30/2025 13:06:58 CBC w/ auto diff 2024 025 [facility], [address] [place] [address], [address], 07/11/2025 01:06:32 PT/PTT, plasma 2024 025 [facility], [address] [place] [address], [address], 07/11/2025 01:06:34 iron + TIBC + ferritin, serum 2024 025 [facility], [address] [place] [address], [address], 07/11/2025 01:06:32 von Willebran d factor Ag actual/no rmal, platelet poor plasma 2024 025 [facility], [address] [place] [address], [place], [address], 07/11/2025 01:06:36 thyroid panel, serum 2024 [facility]), [address] [place], [address], 07/11/2025 01:06:33 CMP, serum or plasma 2024 [facility]), [address] [place], [address], 07/11/2025 01:06:32 DERREK (antinucl ear antibodie s) screen, serum 2024 [facility]), [address] [place], [address], 07/11/2025 01:06:35 erythrocy te sedimenta tion rate by westergre n method 2024 [facility]), [address] [place], [address], 07/11/2025 01:06:35 C reactive protein, QN, serum or plasma 2024 [facility]), [address] [place], [address], 07/11/2025 01:06:36 rf (rheumato id factor), serum 2024 [facility]), [address] [place], [address], 07/11/2025 01:06:34 heterophi le Ab, qualitati ve latex agglutina tion, serum 2024 [facility]), [address] [place], [address], 07/11/2025 01:06:36 stefanie oglesby virus Ab panel, serum 2024 [facility]), [address] [place], [address], 07/11/2025 01:06:34 vitamin D, 25-hydrox y, total, serum 2024 025 [facility] ([facility]), [address] [place], [address], 07/11/2025 01:06:35 TSH, ultra-sen sitive, serum 2024 025 [facility] ([facility]), [address] [place], [address], 02/27/2025 07:12:51 lipid panel, serum 2024 025 [facility]), [address] [place], [address], 02/27/2025 07:12:50 CMP, serum or plasma 2024 025 [facility]), [address] [place], [address], 02/27/2025 07:12:50 CBC w/ auto diff 2024 025 [facility]), [address] [place], [address], 02/27/2025 07:12:49 vitamin D, 25-hydrox y, total, serum 2024 025 [facility]), [address] [place], [address], 02/27/2025 07:12:52 Hepatitis C IgG Ab, qual, serum 2024 025 [facility]), [address] [place], [address], 02/27/2025 07:12:51 HIV 1 + 2, meaningfu l use set 2024 025 [facility] ([place]), [address], [place], [address], 02/27/2025 07:12:52 Referral None recorded. Procedures None recorded. Surgeries None recorded. Imaging US, abdomen 2024 025 [facility] [address], [place], [address], 08/31/2025 08:30:17 MRI, lumbar spine, w/o contrast 2024 025 [facility] ([facility]), [address], [place], [address], 04/14/2025 15:25:11 Medication Orders Adipex-P 37.5 mg tablet 2024 025 [facility], [address], [address], 08/28/2025 15:18:43 Protonix 40 mg tablet,de layed release 2024 025 [facility], [address], [address], 08/28/2025 14:44:25 Carafate 1 gram tablet 2024 025 [facility], [address], [address], 08/28/2025 14:44:41 Depo-Medr ol 80 mg/mL suspensio n for injection [address], [address], [address], 07/13/2025 09:00:27 ketorolac 60 mg/2 mL intramusc ular solution [address] [place] [address], [address], [address], 07/13/2025 09:00:31 Medrol (Sacha) 4 mg tablets in a dose pack [address] [place] [address], [address] [place] [address], [address], 07/22/2025 05:01:55 Adipex-P 37.5 mg tablet [address] [place] [address], [address] [place] [address], [address], 07/09/2025 12:48:14 Adipex-P 37.5 mg tablet [address] [place] [address], [address] [place] [address], [address], 03/26/2025 16:56:04 ergocalci ferol (vitamin D2) 1,250 mcg (50,000 unit) capsule [address] [facility] [id number] [place] [address], [address] [place] [address], [place], [address], 03/26/2025 17:11:47 Adipex-P 37.5 mg tablet [address] [place] [address], [address] [place] [address], [address], 02/26/2025 16:34:42 Bystolic 5 mg tablet [address] [place] [address], [address] [place] [address], [address], 02/26/2025 16:34:39 Patient TargetsNo targets recorded. Patient Instructions Encounter Date Encounter Id Patient Instructions Last Modified By Organization Details Last Modified Time 02/26/2025 [id number] body mass index: care instructions [email or web address] Not available 02/26/2025 16:29:02 learning about healthy weight [email or web address] Not available 02/26/2025 16:29:02 HIV testing: car e instructions [email or web address] Not available 02/26/2025 16:48:15 03/26/2025 [id number] body mass index: care instructions [email or web address] Not available 03/26/2025 16:52:42 learning about healthy weight [id number] Not available 03/26/2025 16:52:42 07/09/2025 [id number] vitamin K [id number] Not available 07/09 11:50:29 swollen lymph nodes: care instructions [email or web address] Not available 07/09/2025 11:50:29 08/28/2025 [id number] hypothyroidism: care instructions [id number] Not available 08/28/2025 17:35:36 body mass index: care instructions Not available 08/28/2025 15:18:42 learning about healthy weight Not available 08/28/2025 15:18:42 Reason for Referral None Reported. Results Created Date Observation Date Name Description Value Unit Range Abnormal Flag Note LastModifiedBy Organization Detail LastModifiedTime 02/27/2002/27/2025 CBC WITH DIFFE RENTI AL/PL ATELE T WBC 8.0 x10e3 /uL 3.4-10 .8 normal Not Available [facility] ([facility]) [address] [place], [address], 02/27/2025 07:12:49 02/27/2002/27/2025 CBC WITH DIFFE RENTI AL/PL ATELE T RBC 5.34 x10e6 /uL 3.77-5 .28 above high normal Not Available [facility] ([facility]) [address] [place], [address], 02/27/2025 07:12:49 02/27/2002/27/2025 CBC WITH DIFFE RENTI AL/PL ATELE T hemoglobin 13.5 g/dL 11.1-1 5.9 normal Not Available [facility] ([facility]) [address] [place], [address], 02/27/2025 07:12:49 02/27/2002/27/2025 CBC WITH DIFFE RENTI AL/PL ATELE T hematocrit 43.0 % 34.0-4 6.6 normal Not Available [facility] ([facility]) [address] [place], [address], 02/27/2025 07:12:49 02/27/2002/27/2025 CBC WITH DIFFE RENTI AL/PL ATELE T MCV 81 fL 79-97 normal Not Available [facility] ([facility]) [address] [place], [address], 02/27/2025 07:12:49 02/27/2002/27/2025 CBC WITH DIFFE RENTI AL/PL ATELE T MCH 25.3 pg 26.6-3 3.0 below low normal Not Available [facility] ([facility]) [address] [place], [address], 02/27/2025 07:12:49 02/27/2002/27/2025 CBC WITH DIFFE RENTI AL/PL ATELE T MCHC 31.4 g/dL 31.5-3 5.7 below low normal Not Available [facility] ([facility]) [address] [place], [address], 02/27/2025 07:12:49 02/27/2002/27/2025 CBC WITH DIFFE RENTI AL/PL ATELE T RDW 14.8 % 11.7-1 5.4 Not Available [facility] ([facility]) [address] [place], [address], 02/27/2025 07:12:49 02/27/2002/27/2025 CBC WITH DIFFE RENTI AL/PL ATELE T platelets 411 x10e3 /uL 150-45 0 normal Not Available [facility] ([facility]) [address] [place], [address], 02/27/2025 07:12:49 05/15/20 25 02/27/2025 CBC WITH DIFFE RENTI AL/PL ATELE T neutrophils 66 % not estab. normal Not Available [facility] ([facility]) [address] [facility], [place], [address], 02/27/2025 07:12:49 02/27/2002/27/2025 CBC WITH DIFFE RENTI AL/PL ATELE T lymphs 29 % not estab. normal Not Available [facility] ([facility]) [address] [facility], [place], [address], 02/27/2025 07:12:49 02/27/20 25 02/27/2025 CBC WITH DIFFE RENTI AL/PL ATELE T monocytes 4 % not estab. normal Not Available [facility] ([facility]) [address] [facility], [place], [address], 02/27/2025 07:12:49 02/27/2002/27/2025 CBC WITH DIFFE RENTI AL/PL ATELE T eos 1 % not estab. normal Not Available [facility] ([facility]) [address] [facility], [place], [address], 02/27/2025 07:12:49 02/27/2002/27/2025 CBC WITH DIFFE RENTI AL/PL ATELE T basos 0 % not estab. normal Not Available [facility] ([facility]) [address] [facility], [place], [address], 02/27/2025 07:12:49 02/27/2002/27/2025 CBC WITH DIFFE RENTI AL/PL ATELE T immature cells OBIEE OBIA SOLUTION ARCHITECT Not Available [facility] ([facility]) [address] [place], [address], 02/27/2025 07:12:49 02/27/2002/27/2025 CBC WITH DIFFE RENTI AL/PL ATELE T neutrophils (absolute) 5.2 x10e3 /uL 1.4-7. 0 normal Not Available [facility] ([facility]) [address] [facility], [place], [address], 02/27/2025 07:12:49 02/27/2002/27/2025 CBC WITH DIFFE RENTI AL/PL ATELE T lymphs (absolute) 2.3 x10e3 /uL 0.7-3. 1 normal Not Available [facility] ([facility]) [address] [facility], [place], [address], 02/27/2025 07:12:49 02/27/2002/27/2025 CBC WITH DIFFE RENTI AL/PL ATELE T monocytes(ab solute) 0.3 x10e3 /uL 0.1-0. 9 normal Not Available [facility] ([facility]) [address] [facility], [place], [address], 02/27/2025 07:12:49 02/27/2002/27/2025 CBC WITH DIFFE RENTI AL/PL ATELE T eos (absolute) 0.1 x10e3 /uL 0.0-0. 4 normal Not Available [facility] ([facility]) [address] [facility], [place], [address], 02/27/2025 07:12:49 02/27/2002/27/2025 CBC WITH DIFFE RENTI AL/PL ATELE T baso (absolute) 0.0 x10e3 /uL 0.0-0. 2 normal Not Available [facility] ([facility]) [address] [place], [address], 02/27/2025 07:12:49 02/27/2002/27/2025 CBC WITH DIFFE RENTI AL/PL ATELE T immature granulocytes 0 % not estab. Not Available [facility] ([facility]) [address] [place], [address], 02/27/2025 07:12:49 02/27/2002/27/2025 CBC WITH DIFFE RENTI AL/PL ATELE T immature grans (abs) 0.0 x10e3 /uL 0.0-0. 1 Not Available [facility] ([facility]) [address] [place], [address], 02/27/2025 07:12:49 02/27/20 25 02/27/2025 CBC WITH DIFFE RENTI AL/PL ATELE T NRBC OBIEE OBIA SOLUTION ARCHITECT Not Available [facility] ([facility]) [address] [facility], [place], [address], 02/27/2025 07:12:49 02/27/20 25 02/27/2025 CBC WITH DIFFE RENTI AL/PL ATELE T hematology comments: OBIEE OBIA SOLUTION ARCHITECT Not Available [facility] ([facility]) [address] [place], [address], 02/27/2025 07:12:49 02/27/20 25 02/27/2025 COMP. METAB OLIC PANEL (14) glucose 92 mg/dL 70-99 normal Not Available [facility] ([facility]) [address] [place], [address], 02/27/2025 07:12:50 02/27/20 25 02/27/2025 COMP. METAB OLIC PANEL (14) BUN 10 mg/dL 6-20 normal Not Available [facility] ([facility]) [address] [place], [address], 02/27/2025 07:12:50 02/27/20 25 02/27/2025 COMP. METAB OLIC PANEL (14) creatinine 0.65 mg/dL 0.57-1 .00 normal Not Available [facility] ([facility]) [address] [place], [address], 02/27/2025 07:12:50 02/27/20 25 02/27/2025 COMP. METAB OLIC PANEL (14) eGFR 123 mL/mi n/1.7 3 >59 normal Not Available [facility] ([facility]) [address] [place], [address], 02/27/2025 07:12:50 02/27/20 25 02/27/2025 COMP. METAB OLIC PANEL (14) BUN/creatini ne ratio 15 9-23 normal Not Available [facility] ([facility]) [address] [place], [address], 02/27/2025 07:12:50 02/27/20 25 02/27/2025 COMP. METAB OLIC PANEL (14) sodium 140 mmol/ L 134-14 4 normal Not Available [facility] ([facility]) [address] [place], [address], 02/27/2025 07:12:50 02/27/20 25 02/27/2025 COMP. METAB OLIC PANEL (14) potassium 4.2 mmol/ L 3.5-5. 2 normal Not Available [facility] ([facility]) [address] [place], [address], 02/27/2025 07:12:50 02/27/20 25 02/27/2025 COMP. METAB OLIC PANEL (14) chloride 104 mmol/ L 96-106 normal Not Available [facility] ([facility]) [address] [place], [address], 02/27/2025 07:12:50 02/27/20 25 02/27/2025 COMP. METAB OLIC PANEL (14) carbon dioxide, total 21 mmol/ L 20-29 normal Not Available [facility] ([facility]) [address] [facility], [address], 02/27/2025 07:12:50 02/27/20 25 02/27/2025 COMP. METAB OLIC PANEL (14) calcium 9.5 mg/dL 8.7-10 .2 normal Not Available [facility] ([facility]) [address] [facility], [address], 02/27/2025 07:12:50 02/27/20 25 02/27/2025 COMP. METAB OLIC PANEL (14) protein, total 6.9 g/dL 6.0-8. 5 normal Not Available [facility] ([facility]) [address] [facility], [address], 02/27/2025 07:12:50 02/27/20 25 02/27/2025 COMP. METAB OLIC PANEL (14) albumin 4.6 g/dL 4.0-5. 0 normal Not Available [facility] ([facility]) [address] [place], [address], 02/27/2025 07:12:50 02/27/20 25 02/27/2025 COMP. METAB OLIC PANEL (14) globulin, total 2.3 g/dL 1.5-4. 5 Not Available [facility] ([facility]) [address] [facility] [place], [address], 02/27/2025 07:12:50 02/27/20 25 02/27/2025 COMP. METAB OLIC PANEL (14) bilirubin, total 0.3 mg/dL 0.0-1. 2 normal Not Available [facility] ([facility]) [address] [place], [address], 02/27/2025 07:12:50 02/27/20 25 02/27/2025 COMP. METAB OLIC PANEL (14) alkaline phosphatase 70 IU/L 44-121 normal Not Available [facility] ([facility]) [address] [facility] [place], [address], 02/27/2025 07:12:50 02/27/20 25 02/27/2025 COMP. METAB OLIC PANEL (14) AST (SGOT) 15 IU/L 0-40 normal Not Available [facility] ([facility]) [address] [facility], [address], 02/27/2025 07:12:50 02/27/20 25 02/27/2025 COMP. METAB OLIC PANEL (14) ALT (SGPT) 24 IU/L 0-32 normal Not Available [facility] ([facility]) [address] [place], [address], 02/27/2025 07:12:50 02/27/20 25 02/27/2025 LIPID PANEL cholesterol, total 204 mg/dL 100-19 9 above high normal Not Available [facility] ([facility]) [address] [place], [address], 02/27/2025 07:12:50 02/27/20 25 02/27/2025 LIPID PANEL triglyceride s 225 mg/dL 0-149 above high normal Not Available [facility] ([facility]) [address] [place], [address], 02/27/2025 07:12:50 02/27/20 25 02/27/2025 LIPID PANEL HDL cholesterol 43 mg/dL >39 normal Not Available [facility]) [address] [place], [address], 02/27/2025 07:12:50 02/27/20 25 02/27/2025 LIPID PANEL VLDL cholesterol jennifer 40 mg/dL 5-40 Not Available [facility] ([facility]) [address] [place], [address], 02/27/2025 07:12:50 02/27/20 25 02/27/2025 LIPID PANEL LDL chol calc ([facility]) 121 mg/dL 0-99 above high normal Not Available [facility] ([facility]) [address] [place], [address], 02/27/2025 07:12:50 02/27/20 25 02/27/2025 LIPID PANEL LDL calc comment: OBIEE OBIA SOLUTION ARCHITECT Not Available [facility] ([facility]) [address] [place], [address], 02/27/2025 07:12:50 02/27/2002/27/2025 HCV ANTIB CAROLINE CASCA DE(PC R/GEN O) HCV Ab Non Reacti ve non reacti ve Not Available [facility] ([facility]) [address] [facility], [place], [address], 02/27/2025 07:12:51 02/27/2002/27/2025 HCV ANTIB CAROLINE CASCA DE(PC R/GEN O) interpretati on: Commen t Not infec chad with HCV unles s early or acute infec tion is suspe cted (whic h may be delay ed in an immun ocomp romis ed indiv idual ), or other evide nce exist s to indic ate HCV infec tion. Not Available [facility] ([facility]) [address] [facility], [place], [address], 02/27/2025 07:12:51 02/27/2002/27/2025 TSH TSH 2.330 uIU/m L 0.450- 4.500 normal Not Available [facility] ([facility]) [address] [facility], [place], [address], 02/27/2025 07:12:51 02/27/2002/27/2025 VITAM IN D, 25-HY [...] and D. Moe cabrales [place]: [facility] . 2. Yung reid [place], Syeda maurice [place], Bishop off-F errar i WAITE, et al. Evalu ation , treat ment, and preve ntion of vitam in D defic iency : an Endoc rine Socie ty clini jennifer pract ice guide line. JCEM. 2010; 96(7) :1911 -30. Not Available [facility] ([facility]) [address] [place], [address], 02/27/2025 07:12:52 02/27/2002/27/2025 HIV AB/P2 4 AG WITH REFLE X HIV Ab/P24 Ag screen Non Reacti ve non reacti ve HIV Negat evie HIV-1 /HIV- 2 antib odies and HIV-1 p24 antig en were NOT detec chad. There is no labor atory evide nce of HIV infec tion. Not Available [facility] ([facility]) [address] [place], [address], 02/27/2025 07:12:52 07/09/2007/10/2025 FE+TI BC+FE R iron bind.cap.(TI BC) 327 ug/dL 250-45 0 normal Not Available [facility] ([facility]) [address] [place], [address], 07/11/2025 01:06:31 07/09/2007/10/2025 FE+TI BC+FE R UIBC 285 ug/dL 131-42 5 normal Not Available [facility] ([facility]) [address] [place], [address], 07/11/2025 01:06:31 07/09/2007/10/2025 FE+TI BC+FE R iron 42 ug/dL 27-159 normal Not Available [facility] ([facility]) [address] [place], [address], 07/11/2025 01:06:31 07/09/2007/10/2025 FE+TI BC+FE R iron saturation 13 % 15-55 below low normal Not Available [facility] ([facility]) [address] [place], [address], 07/11/2025 01:06:31 07/09/2007/10/2025 FE+TI BC+FE R ferritin 20 NG/mL 15-150 normal Not Available [facility] ([facility]) [address] [facility], [place], [address], 07/11/2025 01:06:31 07/09/2007/10/2025 CBC WITH DIFFE RENTI AL/PL ATELE T WBC 7.5 x10e3 /uL 3.4-10 .8 normal Not Available [facility] ([facility]) [address] [facility], [place], [address], 07/11/2025 01:06:32 07/09/2007/10/2025 CBC WITH DIFFE RENTI AL/PL ATELE T RBC 5.04 x10e6 /uL 3.77-5 .28 normal Not Available [facility] ([facility]) [address] [place], [address], 07/11/2025 01:06:32 07/09/2007/10/2025 CBC WITH DIFFE RENTI AL/PL ATELE T hemoglobin 13.1 g/dL 11.1-1 5.9 normal Not Available [facility] ([facility]) [address] [place], [address], 07/11/2025 01:06:32 07/09/2007/10/2025 CBC WITH DIFFE RENTI AL/PL ATELE T hematocrit 42.2 % 34.0-4 6.6 normal Not Available [facility] ([facility]) [address] [place], [address], 07/11/2025 01:06:32 07/09/2007/10/2025 CBC WITH DIFFE RENTI AL/PL ATELE T MCV 84 fL 79-97 normal Not Available [facility] ([facility]) [address] [place], [address], 07/11/2025 01:06:32 07/09/2007/10/2025 CBC WITH DIFFE RENTI AL/PL ATELE T MCH 26.0 pg 26.6-3 3.0 below low normal Not Available [facility] ([facility]) [address] [place], [address], 07/11/2025 01:06:32 07/09/2007/10/2025 CBC WITH DIFFE RENTI AL/PL ATELE T MCHC 31.0 g/dL 31.5-3 5.7 below low normal Not Available [facility] ([facility]) [address] [place], [address], 07/11/2025 01:06:32 07/09/2007/10/2025 CBC WITH DIFFE RENTI AL/PL ATELE T RDW 13.6 % 11.7-1 5.4 Not Available [facility] ([facility]) [address] [place], [address], 07/11/2025 01:06:32 07/09/2007/10/2025 CBC WITH DIFFE RENTI AL/PL ATELE T platelets 369 x10e3 /uL 150-45 0 normal Not Available [facility] ([facility]) [address] [place], [address], 07/11/2025 01:06:32 07/09/2007/10/2025 CBC WITH DIFFE RENTI AL/PL ATELE T neutrophils 62 % not estab. normal Not Available [facility] ([facility]) [address] [place], [address], 07/11/2025 01:06:32 07/09/2007/10/2025 CBC WITH DIFFE RENTI AL/PL ATELE T lymphs 32 % not estab. normal Not Available [facility] ([facility]) [address] [place], [address], 07/11/2025 01:06:32 07/09/2007/10/2025 CBC WITH DIFFE RENTI AL/PL ATELE T monocytes 5 % not estab. normal Not Available [facility] ([facility]) [address] [place], [address], 07/11/2025 01:06:32 07/09/2007/10/2025 CBC WITH DIFFE RENTI AL/PL ATELE T eos 1 % not estab. normal Not Available [facility] ([facility]) [address] [place], [address], 07/11/2025 01:06:32 07/09/2007/10/2025 CBC WITH DIFFE RENTI AL/PL ATELE T basos 0 % not estab. normal Not Available [facility] ([facility]) [address] [facility], [place], [address], 07/11/2025 01:06:32 07/09/2007/10/2025 CBC WITH DIFFE RENTI AL/PL ATELE T immature cells OBIEE OBIA SOLUTION ARCHITECT Not Available [facility] ([facility]) [address] [place], [address], 07/11/2025 01:06:32 07/09/2007/10/2025 CBC WITH DIFFE RENTI AL/PL ATELE T neutrophils (absolute) 4.6 x10e3 /uL 1.4-7. 0 normal Not Available [facility] ([facility]) [address] [place], [address], 07/11/2025 01:06:32 07/09/2007/10/2025 CBC WITH DIFFE RENTI AL/PL ATELE T lymphs (absolute) 2.4 x10e3 /uL 0.7-3. 1 normal Not Available [facility] ([facility]) [address] [facility], [address], 07/11/2025 01:06:32 07/09/2007/10/2025 CBC WITH DIFFE RENTI AL/PL ATELE T monocytes(ab solute) 0.3 x10e3 /uL 0.1-0. 9 normal Not Available [facility] ([facility]) [address] [facility], [place], [address], 07/11/2025 01:06:32 07/09/2007/10/2025 CBC WITH DIFFE RENTI AL/PL ATELE T eos (absolute) 0.1 x10e3 /uL 0.0-0. 4 normal Not Available [facility] ([facility]) [address] [facility], [place], [address], 07/11/2025 01:06:32 07/09/2007/10/2025 CBC WITH DIFFE RENTI AL/PL ATELE T baso (absolute) 0.0 x10e3 /uL 0.0-0. 2 normal Not Available [facility] ([facility]) [address] [place], [address], 07/11/2025 01:06:32 07/09/2007/10/2025 CBC WITH DIFFE RENTI AL/PL ATELE T immature granulocytes 0 % not estab. Not Available [facility] ([facility]) [address] [facility], [place], [address], 07/11/2025 01:06:32 07/09/2007/10/2025 CBC WITH DIFFE RENTI AL/PL ATELE T immature grans (abs) 0.0 x10e3 /uL 0.0-0. 1 Not Available [facility] ([facility]) [address] [place], [address], 07/11/2025 01:06:32 07/09/2007/10/2025 CBC WITH DIFFE RENTI AL/PL ATELE T NRBC OBIEE OBIA SOLUTION ARCHITECT Not Available [facility] ([facility]) [address], [place], [address], 07/11/2025 01:06:32 07/09/2007/10/2025 CBC WITH DIFFE DARI AL/PL CHARLENELE T hematology comments: OBIEE OBIA SOLUTION ARCHITECT Not Available [facility] ([facility]) [address], [place], [address], 07/11/2025 01:06:32 07/09/20 25 07/10/2025 COMP. METAB OLIC PANEL (14) glucose 82 mg/dL 70-99 normal Not Available [facility] ([facility]) [address], [place], [address], 07/11/2025 01:06:32 07/09/20 25 07/10/2025 COMP. METAB OLIC PANEL (14) BUN 8 mg/dL 6-20 normal Not Available [facility] ([facility]) [address], [place], [address], 07/11/2025 01:06:32 07/09/2007/10/2025 COMP. METAB OLIC PANEL (14) creatinine 0.67 mg/dL 0.57-1 .00 normal Not Available [facility] ([facility]) [address], [place], [address], 07/11/2025 01:06:32 07/09/2007/10/2025 COMP. METAB OLIC PANEL (14) eGFR 122 mL/mi n/1.7 3 >59 normal Not Available [facility] ([facility]) [address] [place], [address], 07/11/2025 01:06:32 07/09/20 25 07/10/2025 COMP. METAB OLIC PANEL (14) BUN/creatini ne ratio 12 9-23 normal Not Available [facility] ([facility]) [address], [place], [address], 07/11/2025 01:06:32 07/09/2007/10/2025 COMP. METAB OLIC PANEL (14) sodium 141 mmol/ L 134-14 4 normal Not Available [facility] ([facility]) [address] [place], [address], 07/11/2025 01:06:32 07/09/2007/10/2025 COMP. METAB OLIC PANEL (14) potassium 4.2 mmol/ L 3.5-5. 2 normal Not Available [facility] ([facility]) [address] [place], [address], 07/11/2025 01:06:32 07/09/2007/10/2025 COMP. METAB OLIC PANEL (14) chloride 105 mmol/ L 96-106 normal Not Available [facility] ([facility]) [address] [place], [address], 07/11/2025 01:06:32 07/09/2007/10/2025 COMP. METAB OLIC PANEL (14) carbon dioxide, total 19 mmol/ L 20-29 below low normal Not Available [facility] ([facility]) [address] [place], [address], 07/11/2025 01:06:32 07/09/2007/10/2025 COMP. METAB OLIC PANEL (14) calcium 9.4 mg/dL 8.7-10 .2 normal Not Available [facility] ([facility]) [address] [place], [address], 07/11/2025 01:06:32 07/09/2007/10/2025 COMP. METAB OLIC PANEL (14) protein, total 6.7 g/dL 6.0-8. 5 normal Not Available [facility] ([facility]) [address] [place], [address], 07/11/2025 01:06:32 07/09/2007/10/2025 COMP. METAB OLIC PANEL (14) albumin 4.5 g/dL 4.0-5. 0 normal Not Available [facility] ([facility]) [address] [place], [address], 07/11/2025 01:06:32 07/09/2007/10/2025 COMP. METAB OLIC PANEL (14) globulin, total 2.2 g/dL 1.5-4. 5 Not Available [facility] ([facility]) [address] [place], [address], 07/11/2025 01:06:32 07/09/2007/10/2025 COMP. METAB OLIC PANEL (14) bilirubin, total 0.4 mg/dL 0.0-1. 2 normal Not Available [facility] ([facility]) [address] [place], [address], 07/11/2025 01:06:32 07/09/2007/10/2025 COMP. METAB OLIC PANEL (14) alkaline phosphatase 63 IU/L 41-116 normal Ple ase note refer ence rashaad shine e Not Available [facility] ([facility]) [address], [place], [address], 07/11/2025 01:06:32 07/09/2007/10/2025 COMP. METAB OLIC PANEL (14) AST (SGOT) 15 IU/L 0-40 normal Not Available [facility] ([facility]) [address] [place], [address], 07/11/2025 01:06:32 07/09/2007/10/2025 COMP. METAB OLIC PANEL (14) ALT (SGPT) 18 IU/L 0-32 normal Not Available [facility] ([facility]) [address] [place], [address], 07/11/2025 01:06:32 07/09/2007/10/2025 THYRO ID PANEL WITH TSH TSH 4.810 uIU/m L 0.450- 4.500 above high normal Not Available [facility] ([facility]) [address] [place], [address], 07/11/2025 01:06:33 07/09/2007/10/2025 THYRO ID PANEL WITH TSH thyroxine (T4) 8.5 ug/dL 4.5-12 .0 normal Not Available [facility] ([facility]) [address] [place], [address], 07/11/2025 01:06:33 07/09/2007/10/2025 THYRO ID PANEL WITH TSH T3 uptake 25 % 24-39 normal Not Available [facility] ([facility]) [address] [place], [address], 07/11/2025 01:06:33 07/09/2007/10/2025 THYRO ID PANEL WITH TSH free thyroxine index 2.1 1.2-4. 9 normal Not Available [facility] ([facility]) [address] [place], [address], 07/11/2025 01:06:33 07/09/2007/09/2025 EBV ANTIB CAROLINE PROFI LE interpretati on: Commen t EBV Inter preta tion Chart Garcia: Antib caroline Prese nt + Antib caroline Absen t - Inter preta tion VCA-I gM VCA-I gG EBNA- IgG No previ ous infec tion/ - - - Susce ptibl e Prima ry infec tion (new + + - or recen t) Past Infec tion +or- + + See comme nt below * + - - *Resu lts indic ate infec tion with EBV at some time yue sanchezo t predi ct the timin g of the infec tion since antib odies to EBNA usual ly devel op after prima ry infec tion or, alter nativ jerrod, appro ximat jerrod 5-10% of patie nts with EBV never devel op antib odies to [facility]NA. Not Available [facility] ([facility]) [address] [place], [address], 07/11/2025 01:06:34 07/09/2007/10/2025 EBV ANTIB CAROLINE PROFI LE ebv Ab vca, IgM <36.0 U/mL 0.0-35 .9 Negat evie <36.0 Equiv ocal 36.0 - 43.9 Posit evie >43.9 Not Available [facility] ([facility]) [address] [place], [address], 07/11/2025 01:06:34 07/09/2007/10/2025 EBV ANTIB CAROLINE PROFI LE ebv Ab vca, IgG <18.0 U/mL 0.0-17 .9 Negat evie <18.0 Equiv ocal 18.0 - 21.9 Posit evie >21.9 Not Available [facility] ([facility]) [address], [place], [address], 07/11/2025 01:06:34 07/09/2007/10/2025 EBV ANTIB CAROLINE PROFI LE ebv nuclear antigen Ab, IgG <18.0 U/mL 0.0-17 .9 Negat evie <18.0 Equiv ocal 18.0 - 21.9 Posit evie >21.9 Not Available [facility] ([facility]) [address] [place], [address], 07/11/2025 01:06:34 07/09/2007/10/2025 PT AND PTT INR 0.9 0.9-1. 2 Refer ence inter arvind is for non-a ntico agula chad patie nts. Sugge sted INR thera peuti c range for Vitam in K antag onist thera py: Stand tomasz Dose (mode rate inten sity thera peuti c range ): 2.0 - 3.0 Highe r inten sity thera peuti c range 2.5 - 3.5 Not Available [facility] ([facility]) [address], [place], [address], 07/11/2025 01:06:34 07/09/2007/10/2025 PT AND PTT prothrombin time 9.9 sec 9.1-12 .0 normal Not Available [facility] ([facility]) [address], [place], [address], 07/11/2025 01:06:34 07/09/2007/10/2025 PT AND PTT APTT 27 sec 24-33 normal This test has not been valid ated for monit oring unfra ction ated hepar in thera py. aPTT- based thera peuti c range s for unfra ction ated hepar in thera py have not been estab lisotilia d. For gener al guide lines on Hepar in [facility] , refer to the [facility] Direc tory of Bassem khanna. Not Available [facility] ([facility]) [address], [place], [address], 07/11/2025 01:06:34 07/09/2007/10/2025 RHEUM ATOID FACTO R (RF) rheumatoid factor (rf) <10.0 IU/mL <14.0 Not Available [facility] ([facility]) [address], [place], [address], 07/11/2025 01:06:34 07/09/2007/10/2025 VITAM IN D, 25-HY DROXY vitamin D, 25-hydroxy 32.2 NG/mL 30.0-1 00.0 Vitam in D defic iency has been [...] Medic ine). 2010. Dieta ry refer ence deborah es for calci um and D. Moe cabrales [place]: The [facility] . 2. Holic k MF, Bink[place] ey [place], Bisch off-F errar i WAITE, et al. Evalu ation , treat ment, and preve ntion of vitam in D defic iency : an Endoc rine Socie ty clini jennifer pract ice guide line. JCEM. 2010; 96(7) :1911 -30. Not Available [facility] ([facility]) [address] [place], [address], 07/11/2025 01:06:35 07/09/2007/10/2025 DERREK W/REF OUMAR IF POSIT EVIE DERREK direct Negati ve negati ve Not Available [facility] ([facility]) [address] [place], [address], 07/11/2025 01:06:35 07/09/2007/10/2025 SEDIM ENTAT ION RATE- WESTE RGREN sedimentatio n rate-westerg brian 13 mm/HR 0-32 normal Not Available [facility] ([facility]) [address] [place], [address], 07/11/2025 01:06:35 07/09/2007/10/2025 MONON UCLEO SIS TEST, QUAL mononucleosi s test, qual Negati ve negati ve The sensi tivit y of Heter ophil e antib caroline testi ng is 80-90 %. Epste in [place] IgM testi ng offer s highe r sensi tivit y. Not Available [facility] ([facility]) [address] [place], [address], 07/11/2025 01:06:36 07/09/2007/10/2025 C-EMMANUEL CTIVE PROTE IN, QUANT C-reactive protein, quant 2 mg/L 0-10 normal Not Available [facility] ([facility]) [address], [place], [address], 07/11/2025 01:06:36 07/09/2007/11/2025 VON FORREST BRAND FACTO R (VWF) AG von willebrand factor (vwf) Ag 94 % 50-200 Not Available [facility] ([facility]) [address], [place], [address], 07/11/2025 01:06:36 08/28/2008/30/2025 H PYLOR I BREAT H TEST H pylori breath test Negati ve negati ve Not Available [facility] ([facility]) [address], [place], [address], 08/30/2025 13:06:58 04/14/2004/09/2025 MRI, lumba r spine , w/o contr ast No observ ation record ed. [facility] (Med Record) [address], [place], [address], 04/14/2025 17:47:24 Result Notes None recorded. Problems Name Problem SNOMED Code Status Onset Date Resolution Date Notes Provider Name and Address Organization Details Recorded Time Vitamin D deficiency 72298495 Active 2024 GAYATRI Vazquez [address] [place] [address], [address], [employer] 11:56:09 Lumbar radiculopathy 886634139 Active 2024 GAYATRI Vazquez [address] [place] [address], [address], [email or web address] 16:51:52 Easy bruising 874015348 Active 2024 GAYATRI Vazquez [address] [place] [address], [address], [employer] 11:48:05 Lymphadenopath y 51216147 Active 2024 GAYATRI Vazquez [address] [place] [address], [address] 8, [email or web address] 11:48:15 Thyroid function tests abnormal 534973712 Active 2024 GAYATRI Vazquez [address] [place] [address], [address] 8, [employer] 11:48:27 Hypothyroidism 15757663 Active 2024 GAYATRI Vazquez [address] [place] [address], [address] 8, [email or web address] 14:08:53 Iron deficiency anemia 23485548 Active 2024 GAYATRI Vazquez [address] [place] [address], [address] 8, [employer] 14:09:01 Epigastric pain 34131071 Active 2024 GAYATRI Vazquez [address] [place] [address], [address], [email or web address] 14:43:47 Problem Notes None recorded. Procedures Surgical History Date Name Laterality Status Provider Name and Address Organization Details Recorded Time Tonsillectomy completed Angela [employer] 02/26/2025 16:07:40 Tubal Ligation completed Angela [employer] 02/26/2025 16:15:39 Imaging Results None recorded. [...] mass index (BMI) Body height Oxygen saturation Heart rate Body temperature Systolic And Diastolic Provider Name and Address Organization Details Last Updated DateTime 5 556890. 1 g 41.8 kg/m2 162.56 cm 99 % 84 /min 98 [degF] 104/72 mm[Hg] [employer] 16:13:12 Date Recorded Body height Body mass index (BMI) Body weight Body temperature Oxygen saturation Heart rate Systolic And Diastolic Provider Name and Address Organization Details Last Updated DateTime 5 162.56 cm 40.2 kg/m2 285606. 05 g 98.2 [degF] 99 % 104 /min 114/84 mm[Hg] [employer] 16:39:21 Date Recorded Body height Body mass index (BMI) Body weight Oxygen saturation Heart rate Body temperature Systolic And Diastolic Provider Name and Address Organization Details Last Updated DateTime 5 162.56 cm 38.2 kg/m2 304748. 94 g 98 % 98 /min 98.2 [degF] 134/84 mm[Hg] [employer] 5 11:35:48 Date Recorded Body height Body mass index (BMI) Body weight Oxygen saturation Heart rate Body temperature Systolic And Diastolic Provider Name and Address Organization Details Last Updated DateTime 5 162.56 cm 36.9 kg/m2 98905.0 8 g 98 % 100 /min 98.2 [degF] 138/76 mm[Hg] [employer] 14:23:20 Social History Question Answer Notes LastModified by Organizat ion Details LastModified Time Tobacco Smoking Status Current Some Day Smoker [email or web address] 02/26/2025 16:07:40 Do You Have An Advance [...] Information not available 08/28/2025 What Type Of Auto Technician Do You Use? Relative Information not available [...] Do You Have A Medical Power Of Professor Of Counseling? No Information not available 02/26/2025 What Was [...] anxious, or unable to sleep at night)? [id number] Information not available 02/26/2025 Do you have [...] Artery Disease N Other N Gout N Blood Diseases N Kidney Stones N Hyperthyroidism N Blood Transfusion N Breast Cancer N Emergency room visit since last appointm ent. N Lung Disease N COPD N Depression N Dermatologic Disorders N Hypothyroidism N Defects or Inherited Disease N Developmental or Behavioral Disorders N Breast Problem N Difficulty Swallowing N Anesthesia Complications N History of STI N Meniere's disease N Anxiety Disorder Y Muscle, Joint, or Bone Problems N Autoimmune disease N Vision or Eye Problems N Arthritis N Polyps N Infertility N Mental Disorder N Congenital Anomalies N Acid Reflux (GERD) N Cancer N Stroke N Neurologic/Epilepsy N Endometriosis N Bladder or Kidney Problems N High Cholesterol N Liver Disease N Psychiatric/Mental Health Condition N Organ Transplant N Dialysis N Schizophrenia N Fibromyalgia N Headaches N Kidney Disease N Allergies/Hayfever N Heart Problems N Ear or Hearing Problems N Hospitalizations N Learning Disorder N Artificial Joints N Thyroid Problems Y GI Problems N Acne N ADD/ADHD N Eating Disorder N Anemia N Constipation N Mental Illness N Diabetes N Ovarian Cancer N Bedwetting N Hepatitis/Liver Disease N Tuberculosis N Eczema N Abuse/Domestic Violence N Diverticulitis N Asthma N Trauma/Violence N Substance Abuse [...] DTaP, unspecified formulation 7 completed Not Available [facility] 08/28/2025 14:11:08 Hep B, adolescent or pediatric 7 completed Not Available [facility] 08/28/2025 14:11:08 Hib, unspecified formulation 7 completed Not Available [facility] 08/28/2025 14:11:08 IPV 7 completed Not Available [facility] 08/28/2025 14:11:08 IPV 7 completed Not Available [facility] 08/28/2025 14:11:08 DTaP, unspecified formulation 7 completed Not Available [facility] 08/28/2025 14:11:08 Hib, unspecified formulation 7 completed Not Available [facility] 08/28/2025 14:11:08 DTaP, unspecified formulation 7 completed Not Available [facility] 08/28/2025 14:11:08 Hib, unspecified formulation 7 completed Not Available [facility] 08/28/2025 14:11:08 OPV, trivalent 8 completed Not Available [facility] 08/28/2025 14:11:08 varicella 8 completed Not Available [facility] 08/28/2025 14:11:08 Influenza, split virus, trivalent, preservative 7 completed Not Available [facility] 08/28/2025 14:11:08 DTaP, unspecified formulation 8 completed Not Available [facility] 08/28/2025 14:11:08 meningococcal MCV4, unspecified formulation 8 completed Not Available [facility] 08/28/2025 14:11:08 HPV, quadrivalent 8 completed Not Available [facility] 08/28/2025 14:11:08 Hep A, ped/adol, 2 dose 8 completed Not Available [facility] 08/28/2025 14:11:08 HPV, quadrivalent 8 completed Not Available [facility] 08/28/2025 14:11:08 Influenza, live, trivalent, intranasal, PF 8 completed Not Available [facility] 08/28/2025 14:11:08 HPV, quadrivalent 9 completed Not Available [facility] 08/28/2025 14:11:08 Hep A, ped/adol, 2 dose 9 completed Not Available [facility] 08/28/2025 14:11:08 Influenza, live, trivalent, intranasal, PF 9 completed Not Available [facility] 08/28/2025 14:11:08 varicella 1 completed Not Available [facility] 08/28/2025 14:11:08 Influenza, live, trivalent, intranasal, PF 4 completed Not Available [facility] 08/28/2025 14:11:08 Influenza, live, quadrivalent, intranasal 5 completed Not Available [facility] 08/28/2025 14:11:08 Past Encounters Encounter ID Performer Location Encounter Start Date Encounter Closed Date Diagnosis/Indication Diagnosis SNOMED-CT Code Diagnosis ICD10 Code Diagnosis IMO Codes Diagnosis Note [id number] GAYATRI Vazquez [address] [address] 02/26/2025 15:55:56 02/26/2025 16:37:46 Past history of pre-eclampsia 7804027294 36766 Z86.79 Z87.59 3947650437 Monitor BP at home - can take Bystolic if needed Body mass index 40+ - severely obese 138937878 Z68.41 551389 History of thyroid disorder 164844046 Z86.39 14559169 HIV screening 204493797 Z11.4 411878 Viral scre ening status 357487840 Z11.59 888383 [id number] GAYATRI Vazquez [address] [address] 03/26/2025 16:30:24 03/26/2025 16:55:53 Body mass index 40+ - severely obese 226940842 Z68.41 075780 Lumbar radiculopathy 128 191454 M54.16 3703896 Vitamin D deficiency 347 11031 E55.9 95206 [id number] GAYATRI Vazquez [address] [address] 07/09/2025 11:28:09 07/09/2025 12:19:34 Easy bruising 031733268 R23.3 829672 Lymphadenopathy 48263974 R59.1 26373 Vitamin D deficiency 347 99173 E55.9 53136 Thyroid fu nction tests abnormal 248962381 R79.89 945101 Acute back pain with sciatica 817490150 M54.41 81213005 Body mass index 40+ - severely obese 801269766 Z68.41 [id number] GAYATRI Vazquez [facility] [address] [place] [address] 08/28/2025 14:01:51 08/28/2025 16:16:17 Epigastric pain 80102599 R10.13 44345 Body mass index 30+ - obesity 573429371 Z68.36 283844 Body mass index 40+ - severely obese 849146464 Z68.41 Hypothyroidism 29909428 E03.9 57919636 Health Concerns Section Related Observation LastModified by Organization Detai ls LastModified Time None Recorded Concern Status LastModified by Organization Details LastModified Time None Recorded Advance Directives Directive N: Payers Insurance Date Sequence Insurance Name Policy Number Policy Garcia Covered Member ID Garcia Member ID Guarantor Name 09/02/2025 1 [place] ([place]) [id number] 3 Barbi Bach [id number] Barbi Bach Notes Date Note Type Note Provider Name and Address Organization Details Recorded Time 02/26/2025 text/html ROS as noted in the HPI Patient presents to establish care.She would like help with weight loss.Had elevated blood pressure after delivery of her son in May but it has been ok for the past few months.History of hypothyroidism. Needs labs. GAYATRI Vazquez [address] [place], [address], [facility] [employer] 02/27/2025 17:38:10 03/26/2025 text/html ROS as noted in the [facility] Patient presents for followup.History of obesity. Taking [...] worse instead of better. GAYATRI Vazquez [address] [place], [address], [facility] [employer] 03/26/2025 17:12:43 07/09/2025 text/html ROS as noted in the [facility] Patient complains of low back pain. Has had low back pain for the past 7-8 months. Started 5-6 months after the of her daughter. 3-4 days ago it was the worse it had ever been. It felt like stabbing pain, electric shocks. muscle spasms into both buttocks and down both legs. Today it is only on the right side. It is miserable. Struggling to take care of her daughter. Has been taking NSAIDs, magnesium. Had MRI a few months ago. Had a bulging disc.Needs refills on Adipex.Still has a lot of bruising. Has heavy periods with clots.Feels like lymph nodes get inflamed and then go down again. GAYATRI Vazquez [address] [place], [address], [employer] 07/09/2025 12:44:19 08/28/2025 text/html ROS as noted in the [...] baby about 6 months ago. GAYATRI Vazquez [address] [place], [address], [employer] 08/28/2025 17:35:38 OBGyn Episode No OBEpisode recorded.
--- OUTSIDE RECORDS SUMMARY | 2025-09-06 18:25 | XMS_ITS | Continuity of Care Document ---
Author Organization NM - eMithilaHaat, [employer] [facility] Address [address] [place] [address] Assessment No assessment recorded. Plan of Treatment Reminders Order Date Submit Date Provider Last Modified By Organization Details Last Modified Time Details Appointments FOLLOW UP 2025 03:00P Roger Park PA-C Not available Not available Not available Lab CBC w/ auto diff [address] [facility], [address] [place] [address], [id number], 07/11/2025 01:06:32 PT/PTT, plasma [address] [facility], [address] [place] [address], [id number], 07/11/2025 01:06:34 iron + TIBC + ferritin, serum [address] [facility], [address] [place] [address], [id number], 07/11/2025 01:06:32 von Willebran d factor Ag actual/no rmal, platelet poor plasma [address] [facility], [address] [place] [address], [address], 07/11/2025 01:06:36 thyroid panel, serum 2024 025 [place] [facility], [address] [place], [address], 07/11/2025 01:06:33 CMP, serum or plasma 2024 [address] [facility]), [address] [place], [address], 07/11/2025 01:06:32 DERREK (antinucl ear antibodie s) screen, serum [address] [facility]), [address] [place], [address], 07/11/2025 01:06:35 erythrocy te sedimenta tion rate by westergre n method [address] [facility]), [address] [place], [address], 07/11/2025 01:06:35 C reactive protein, QN, serum or plasma [address]24 [address] [facility]), [address] [place], [address], 07/11/2025 01:06:36 rf (rheumato id factor), serum [address] [facility]), [address] [place], [address], 07/11/2025 01:06:34 heterophi le Ab, qualitati ve latex agglutina tion, serum [address] [facility]), [address] [place], [address], 07/11/2025 01:06:36 stefanie garrido virus Ab panel, serum [address] [facility]), [address] [place], [address], 07/11/2025 01:06:34 vitamin D, 25-hydrox y, total, serum 2024 [place] [facility] [address], [place], [address], 07/11/2025 01:06:35 Referral None recorded. Procedures None recorded. Surgeries None recorded. Imaging None recorded. Medication Orders Depo-Medr ol 80 mg/mL suspensio n for injection [address], [address] [place] [address], [address], 07/13/2025 09:00:27 ketorolac 60 mg/2 mL intramusc ular solution [address], [address] [place] [address], [address], 07/13/2025 09:00:31 Medrol (Sacha) 4 mg tablets in a dose pack 2024 [facility], [address] [place] [address], [place], [address], 07/22/2025 05:01:55 Adipex-P 37.5 mg tablet 2024 [facility], [address] [place] [address], [address], 07/09/2025 12:48:14 Patient TargetsNo targets recorded. Patient Instructions Encounter Date Encounter Id Patient Instructions Last Modified By Organization Details Last Modified Time 07/09/2025 [id number] vitamin K [email or web address] Not available 07/09 11:50:29 swollen lymph nodes: care instructions [email or web address] Not available 07/09/2025 11:50:29 Reason for Referral None Reported. Results Created Date Observation Date Name Description Value Unit Range Abnormal Flag Note LastModifiedBy Organization Detail LastModifiedTime 07/09/2007/10/2025 FE+TI BC+FE R iron bind.cap.(TI BC) 327 ug/dL 250-45 0 normal Not Available [facility] ([facility]) [address] [facility], [place], [address], 07/11/2025 01:06:31 07/09/2007/10/2025 FE+TI BC+FE R UIBC 285 ug/dL 131-42 5 normal Not Available [facility] ([facility]) [address] [place], [address], 07/11/2025 01:06:31 07/09/2007/10/2025 FE+TI BC+FE R iron 42 ug/dL 27-159 normal Not Available [facility] ([facility]) [address] [place], [address], 07/11/2025 01:06:31 07/09/2007/10/2025 FE+TI BC+FE R iron saturation 13 % 15-55 below low normal Not Available [facility] ([facility]) [address] [place], [address], 07/11/2025 01:06:31 07/09/2007/10/2025 FE+TI BC+FE R ferritin 20 NG/mL 15-150 normal Not Available [facility] ([facility]) [address] [place], [address], 07/11/2025 01:06:31 07/09/2007/10/2025 CBC WITH DIFFE RENTI AL/PL ATELE T WBC 7.5 x10e3 /uL 3.4-10 .8 normal Not Available [facility] ([facility]) [address] [place], [address], 07/11/2025 01:06:32 07/09/2007/10/2025 CBC WITH DIFFE RENTI AL/PL ATELE T RBC 5.04 x10e6 /uL 3.77-5 .28 normal Not Available [facility] ([facility]) [address] [place], [address], 07/11/2025 01:06:32 07/09/2007/10/2025 CBC WITH DIFFE RENTI AL/PL ATELE T hemoglobin 13.1 g/dL 11.1-1 5.9 normal Not Available [facility] ([facility]) [address] [place], [address], 07/11/2025 01:06:32 07/09/2007/10/2025 CBC WITH DIFFE RENTI AL/PL ATELE T hematocrit 42.2 % 34.0-4 6.6 normal Not Available [facility] ([facility]) [address] [place], [address], 07/11/2025 01:06:32 07/09/2007/10/2025 CBC WITH DIFFE RENTI AL/PL ATELE T MCV 84 fL 79-97 normal Not Available [facility] ([facility]) [address] [place], [address], 07/11/2025 01:06:32 07/09/2007/10/2025 CBC WITH DIFFE RENTI AL/PL ATELE T MCH 26.0 pg 26.6-3 3.0 below low normal Not Available [facility] ([facility]) [address] [place], [address], 07/11/2025 01:06:32 07/09/2007/10/2025 CBC WITH DIFFE RENTI AL/PL ATELE T MCHC 31.0 g/dL 31.5-3 5.7 below low normal Not Available [facility] ([facility]) [address] [place], [address], 07/11/2025 01:06:32 07/09/2007/10/2025 CBC WITH DIFFE RENTI AL/PL ATELE T RDW 13.6 % 11.7-1 5.4 Not Available [facility] ([facility]) [address] [place], [address], 07/11/2025 01:06:32 07/09/2007/10/2025 CBC WITH DIFFE RENTI AL/PL ATELE T platelets 369 x10e3 /uL 150-45 0 normal Not Available [facility] ([facility]) [address] [place], [address], 07/11/2025 01:06:32 07/09/2007/10/2025 CBC WITH DIFFE RENTI AL/PL ATELE T neutrophils 62 % not estab. normal Not Available [facility] ([facility]) [address] [facility], [place], [address], 07/11/2025 01:06:32 07/09/2007/10/2025 CBC WITH DIFFE RENTI AL/PL ATELE T lymphs 32 % not estab. normal Not Available [facility] ([facility]) [address] [place], [address], 07/11/2025 01:06:32 07/09/2007/10/2025 CBC WITH DIFFE RENTI AL/PL ATELE T monocytes 5 % not estab. normal Not Available [facility] ([facility]) [address] [place], [address], 07/11/2025 01:06:32 07/09/2007/10/2025 CBC WITH DIFFE RENTI AL/PL ATELE T eos 1 % not estab. normal Not Available [facility] ([facility]) [address] [place], [address], 07/11/2025 01:06:32 07/09/2007/10/2025 CBC WITH DIFFE RENTI AL/PL ATELE T basos 0 % not estab. normal Not Available [facility] ([facility]) [address] [place], [address], 07/11/2025 01:06:32 07/09/2007/10/2025 CBC WITH DIFFE RENTI AL/PL ATELE T immature cells [employer]PER[employer]OR Not Available [facility] ([facility]) [address] [place], [address], 07/11/2025 01:06:32 07/09/2007/10/2025 CBC WITH DIFFE RENTI AL/PL ATELE T neutrophils (absolute) 4.6 x10e3 /uL 1.4-7. 0 normal Not Available [facility] ([facility]) [address] [place], [address], 07/11/2025 01:06:32 07/09/2007/10/2025 CBC WITH DIFFE RENTI AL/PL ATELE T lymphs (absolute) 2.4 x10e3 /uL 0.7-3. 1 normal Not Available [facility] ([facility]) [address] [place], [address], 07/11/2025 01:06:32 07/09/2007/10/2025 CBC WITH DIFFE RENTI AL/PL ATELE T monocytes(ab solute) 0.3 x10e3 /uL 0.1-0. 9 normal Not Available [facility] ([facility]) [address] [place], [address], 07/11/2025 01:06:32 07/09/2007/10/2025 CBC WITH DIFFE RENTI AL/PL ATELE T eos (absolute) 0.1 x10e3 /uL 0.0-0. 4 normal Not Available [facility] ([facility]) [address] [place], [address], 07/11/2025 01:06:32 07/09/2007/10/2025 CBC WITH DIFFE RENTI AL/PL ATELE T baso (absolute) 0.0 x10e3 /uL 0.0-0. 2 normal Not Available [facility] ([facility]) [address] [place], [address], 07/11/2025 01:06:32 07/09/2007/10/2025 CBC WITH DIFFE RENTI AL/PL ATELE T immature granulocytes 0 % not estab. Not Available [facility] ([facility]) [address] [facility], [place], [address], 07/11/2025 01:06:32 07/09/2007/10/2025 CBC WITH DIFFE RENTI AL/PL ATELE T immature grans (abs) 0.0 x10e3 /uL 0.0-0. 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 METAB OLIC PANEL (14) glucose 82 mg/dL 70-99 normal Not Available [facility] ([facility]) [address] [place], [address], 07/11/2025 01:06:32 07/09/2007/10/2025 COMP. METAB OLIC PANEL (14) BUN 8 mg/dL 6-20 normal Not Available [facility] ([facility]) [address] [place], [address], 07/11/2025 01:06:32 07/09/20 25 07/10/2025 COMP. METAB OLIC PANEL (14) creatinine 0.67 mg/dL 0.57-1 .00 normal Not Available [facility] ([facility]) [address] [facility] [place], [address], 07/11/2025 01:06:32 07/09/20 25 07/10/2025 COMP. METAB OLIC PANEL (14) eGFR 122 mL/mi n/1.7 3 >59 normal Not Available [facility] ([facility]) [address] [facility] [place], [address], 07/11/2025 01:06:32 07/09/20 25 07/10/2025 COMP. METAB OLIC PANEL (14) BUN/creatini ne ratio 12 9-23 normal Not Available [facility] ([facility]) [address] [facility] [place], [address], 07/11/2025 01:06:32 07/09/2007/10/2025 COMP. METAB OLIC PANEL (14) sodium 141 mmol/ L 134-14 4 normal Not Available [facility] ([facility]) [address] [facility] [place], [address], 07/11/2025 01:06:32 07/09/2007/10/2025 COMP. METAB OLIC PANEL (14) potassium 4.2 mmol/ L 3.5-5. 2 normal Not Available [facility] ([facility]) [address] [place], [address], 07/11/2025 01:06:32 07/09/2007/10/2025 COMP. METAB OLIC PANEL (14) chloride 105 mmol/ L 96-106 normal Not Available [facility] ([facility]) [address] [place], [address], 07/11/2025 01:06:32 07/09/20 25 07/10/2025 COMP. METAB OLIC PANEL (14) carbon dioxide, total 19 mmol/ L 20-29 below low normal Not Available [facility] ([facility]) [address] [facility] [place], [address], 07/11/2025 01:06:32 07/09/2007/10/2025 COMP. METAB OLIC PANEL (14) calcium 9.4 mg/dL 8.7-10 .2 normal Not Available [facility] ([facility]) [address] [facility] [place], [address], 07/11/2025 01:06:32 07/09/2007/10/2025 COMP. METAB OLIC PANEL (14) protein, total 6.7 g/dL 6.0-8. 5 normal Not Available [facility] ([facility]) [address] [facility] [place], [address], 07/11/2025 01:06:32 07/09/2007/10/2025 COMP. METAB OLIC PANEL (14) albumin 4.5 g/dL 4.0-5. 0 normal Not Available [facility] ([facility]) [address] [facility], [place], [address], 07/11/2025 01:06:32 07/09/2007/10/2025 COMP. METAB OLIC PANEL (14) globulin, total 2.2 g/dL 1.5-4. 5 Not Available [facility] ([facility]) [address] [facility] [place], [address], 07/11/2025 01:06:32 07/09/2007/10/2025 COMP. METAB OLIC PANEL (14) bilirubin, total 0.4 mg/dL 0.0-1. 2 normal Not Available [facility] ([facility]) [address] [facility] [place], [address], 07/11/2025 01:06:32 07/09/2007/10/2025 COMP. METAB OLIC PANEL (14) alkaline phosphatase 63 IU/L 41-116 normal Ple ase note refer ence inter arvind shine e Not Available [facility] ([facility]) [address] [facility] [place], [address], 07/11/2025 01:06:32 07/09/2007/10/2025 COMP. METAB OLIC PANEL (14) AST (SGOT) 15 IU/L 0-40 normal Not Available [facility] ([facility]) [address] [facility] [place], [address], 07/11/2025 01:06:32 07/09/2007/10/2025 COMP. METAB OLIC PANEL (14) ALT (SGPT) 18 IU/L 0-32 normal Not Available [facility] ([facility]) [address] [facility] [place], [address], 07/11/2025 01:06:32 07/09/2007/10/2025 THYRO ID PANEL WITH TSH TSH 4.810 uIU/m L 0.450- 4.500 above high normal Not Available [facility] ([facility]) [address] [facility], [place], [address], 07/11/2025 01:06:33 07/09/2007/10/2025 THYRO ID PANEL WITH TSH thyroxine (T4) 8.5 ug/dL 4.5-12 .0 normal Not Available [facility] ([facility]) [address] [place], [address], 07/11/2025 01:06:33 07/09/2007/10/2025 THYRO ID PANEL WITH TSH T3 uptake 25 % 24-39 normal Not Available [facility] ([facility]) [address] [place], [address], 07/11/2025 01:06:33 07/09/2007/10/2025 THYRO ID PANEL WITH TSH free thyroxine index 2.1 1.2-4. 9 normal Not Available [facility] ([facility]) [address] [place], [address], 07/11/2025 01:06:33 07/09/2007/09/2025 EBV ANTIB CAROLINE PROFI [...] infec tion with EBV at some time howev er canno t predi ct the timin g of the infec tion since antib odies to [facility] usual ly devel op after prima ry infec tion or, alter nativ jerrod, appro ximat jerrod 5-10% of patie nts with EBV never devel op antib odies to [facility]. Not Available [facility] ([facility]) [address] [place], [address], 07/11/2025 01:06:34 07/09/2007/10/2025 EBV ANTIB CAROLINE PROFI LE ebv Ab vca, IgM <36.0 U/mL 0.0-35 .9 Negat evie <36.0 Equiv ocal 36.0 - 43.9 Posit evie >43.9 Not Available [facility] ([facility]) [address] [place], [address], 07/11/2025 01:06:34 07/09/2007/10/2025 EBV ANTIB CAROLINE PROFI LE ebv Ab vca, IgG <18.0 U/mL 0.0-17 .9 Negat evie <18.0 Equiv ocal 18.0 - 21.9 Posit evie >21.9 Not Available [facility] ([facility]) [address] [facility], [place], [address], 07/11/2025 01:06:34 07/09/2007/10/2025 EBV ANTIB CAROLINE PROFI LE ebv nuclear antigen Ab, IgG <18.0 U/mL 0.0-17 .9 Negat evie <18.0 Equiv ocal 18.0 - 21.9 Posit evie >21.9 Not Available [facility] ([facility]) [address] [place], [address], 07/11/2025 01:06:34 07/09/2007/10/2025 PT AND PTT INR [...] range 2.5 - 3.5 Not Available [facility] ([facility]) [address] [place], [address], 07/11/2025 01:06:34 07/09/2007/10/2025 PT AND PTT prothrombin time 9.9 sec 9.1-12 .0 normal Not Available [facility] ([facility]) [address] [place], [address], 07/11/2025 01:06:34 07/09/2007/10/2025 PT AND PTT APTT 27 sec 24-33 normal This test has not been valid ated for monit oring unfra ction ated hepar in thera py. aPTT- based thera peuti c range s for unfra ction ated hepar in thera py have not been estab stephanie faulkner For gener al guide lines on Hepar in monit oring , refer to the [facility] Paulo hernandez of Bassem khanna. Not Available [facility] ([facility]) [address] [place], [address], 07/11/2025 01:06:34 07/09/2007/10/2025 RHEUM ATOID FACTO R (RF) rheumatoid factor (rf) <10.0 IU/mL <14.0 Not Available [facility] ([facility]) [address] [facility], [place], [address], 07/11/2025 01:06:34 07/09/2007/10/2025 VITAM IN D, 25-HY [...] 1. IOM (Inst itute of Medic ine). 2009. Kristy ry refer ence deborah es for calci um and D. Moe cabrales [place]: The Natio nal [facility] Press . 2. Yung reid [place], Syeda maurice [place], Bishop off-F errar i WAITE, et al. Evalu ation , treat ment, and preve ntion of vitam in D defic iency : an Endoc rine Socie ty clini jennifer pract ice guide line. JCEM. 2010; 96(7) :1911 -30. Not Available [facility] ([facility]) [address] [facility], [place], [address], 07/11/2025 01:06:35 07/09/2007/10/2025 DERREK W/REF OUMAR IF POSIT EVIE DERREK direct Negati ve negati ve Not Available [facility] ([facility]) [address] [facility], [place], [address], 07/11/2025 01:06:35 07/09/2007/10/2025 SEDIM ENTAT ION RATE- WESTE RGREN sedimentatio n rate-westerg brian 13 mm/HR 0-32 normal Not Available [facility] ([facility]) [address] [place], [address], 07/11/2025 01:06:35 07/09/2007/10/2025 MONON UCLEO SIS TEST, QUAL mononucleosi s test, qual Negati ve negati ve The sensi tivit y of Heter ophil e antib caroline testi ng is 80-90 %. Epste in Garrido IgM testi ng offer s highe r sensi tivit y. Not Available [facility] ([facility]) [address] [facility], [place], [address], 07/11/2025 01:06:36 07/09/2007/10/2025 C-EMMANUEL CTIVE PROTE IN, QUANT C-reactive protein, quant 2 mg/L 0-10 normal Not Available [facility] ([facility]) [address] [place], [address], 07/11/2025 01:06:36 07/09/2007/11/2025 VON FORREST BRAND FACTO R (VWF) AG von willebrand factor (vwf) Ag 94 % 50-200 Not Available [facility] ([facility]) [address] [place], [address], 07/11/2025 01:06:36 Result Notes None recorded. Problems Name Problem SNOMED Code Status Onset Date Resolution Date Notes Provider Name and Address Organization Details Recorded Time Vitamin D deficiency 56807344 Active 2024 GAYATRI Vazquez [address] [place] [address], [address], [employer] 11:56:09 Lumbar radiculopathy 867413263 Active 2024 GAYATRI Vazquez [address] [place] [address], [address] 8, [employer] 16:51:52 Easy bruising 118904530 Active 2024 GAYATRI Vazquez [address] [place] [address], [address] 8, [employer] 11:48:05 Lymphadenopath y 99831076 Active 2024 GAYATRI Vazquez [address] [place] [address], 35[address] 8, [employer] 11:48:15 Thyroid function tests abnormal 567214075 Active 2024 GAYATRI Vazquez [address] [place] [address], 216[address] 8, [employer] 11:48:27 Hypothyroidism 41140490 Active 2024 GAYATRI Vazquez [address] [place] [address], 59[address] 8, [employer] 14:08:53 Iron deficiency anemia 16200108 Active 2024 GAYATRI Vazquez [address] [place] [address], 45[address] 8, [employer] 14:09:01 Epigastric pain 96253026 Active 2024 GAYATRI Vazquez [address] [place] [address], 236[address] 8, [employer] 14:43:47 Problem Notes None recorded. Procedures Surgical History Date Name Laterality Status Provider Name and Address Organization Details Recorded Time Tonsillectomy completed [facility] [employer] 02/26/2025 16:07:40 Tubal Ligation completed [facility] [employer] 02/26/2025 16:15:39 Imaging Results None recorded. [...] Organization Details Last Updated DateTime 162.56 cm 38.2 kg/m2 832743. 94 g 98 % 98 /min 98.2 [degF] 134/84 mm[Hg] [employer]. 11:35:48 Social History Question Answer Notes LastModified by Organizat ion Details LastModified Time Tobacco Smoking Status Current Some Day Smoker [employer] [facility]. 02/26/2025 16:07:40 Do You Have An Advance [...] Information not available 08/28/2025 What Type Of Security Guard Do You Use? Relative Information not available [...] Do You Have A Medical Power Of Program Director Scouting? No Information not available 02/26/2025 What Was [...] anxious, or unable to sleep at night)? [id number] Information not available 02/26/2025 Do you have [...] DTaP, unspecified formulation 7 completed Not Available Count includes the [facility] 08/28/2025 14:11:08 Hep B, adolescent or pediatric 7 completed Not Available [facility] 08/28/2025 14:11:08 Hib, unspecified formulation 7 completed Not Available [facility] 08/28/2025 14:11:08 IPV 7 completed Not Available [facility] 08/28/2025 14:11:08 IPV 7 completed Not Available [facility] 08/28/2025 14:11:08 DTaP, unspecified formulation 7 completed Not Available [facility] 08/28/2025 14:11:08 Hib, unspecified formulation 7 completed Not Available [facility] 08/28/2025 14:11:08 DTaP, unspecified formulation 7 completed Not Available [facility] 08/28/2025 14:11:08 Hib, unspecified formulation 7 completed Not Available [facility] 08/28/2025 14:11:08 OPV, trivalent 8 completed Not Available [facility] 08/28/2025 14:11:08 varicella 8 completed Not Available [facility] 08/28/2025 14:11:08 Influenza, split virus, trivalent, preservative 7 completed Not Available [facility] 08/28/2025 14:11:08 DTaP, unspecified formulation 8 completed Not Available [facility] 08/28/2025 14:11:08 meningococcal MCV4, unspecified formulation 8 completed Not Available [facility] 08/28/2025 14:11:08 HPV, quadrivalent 8 completed Not Available [facility] 08/28/2025 14:11:08 Hep A, ped/adol, 2 dose 8 completed Not Available [facility] 08/28/2025 14:11:08 HPV, quadrivalent 8 completed Not Available [facility] 08/28/2025 14:11:08 Influenza, live, trivalent, intranasal, PF 8 completed Not Available [facility] 08/28/2025 14:11:08 HPV, quadrivalent 9 completed Not Available [facility] 08/28/2025 14:11:08 Hep A, ped/adol, 2 dose 9 completed Not Available [facility] 08/28/2025 14:11:08 Influenza, live, trivalent, intranasal, PF 9 completed Not Available [facility] 08/28/2025 14:11:08 varicella 1 completed Not Available [facility] 08/28/2025 14:11:08 Influenza, live, trivalent, intranasal, PF 4 completed Not Available [facility] 08/28/2025 14:11:08 Influenza, live, quadrivalent, intranasal 5 completed Not Available [facility] 08/28/2025 14:11:08 Past Encounters Encounter ID Performer Location Encounter Start Date Encounter Closed Date Diagnosis/Indication Diagnosis SNOMED-CT Code Diagnosis ICD10 Code Diagnosis IMO Codes Diagnosis Note [id number] GAYATRI Vazquez [facility] [address] [place] [address] 07/09/2025 11:28:09 07/09/2025 12:19:34 Easy bruising 819732106 R23.3 937191 Lymphadenopathy 13768663 R59.1 30153 Vitamin D deficiency 347 49388 E55.9 76410 Thyroid fu nction tests abnormal 829651684 R79.89 315632 Acute back pain with sciatica 408588544 M54.41 70857704 Body mass index 40+ - severely obese 594243271 Z68.41 Health Concerns Section Related Observation LastModified by Organization Detai ls LastModified Time None Recorded Concern Status LastModified by Organization Details LastModified Time None Recorded Payers Encounter Date Sequence Insurance Name Policy Number Policy Garcia Covered Member ID Garcia Member ID Guarantor Name 07/09/2025 1 [employer] [employer] [id number] 3 Barbi Bach [id number] Barbi Bach Notes Date Note Type Note Provider Name and Address Organization Details Recorded Time 07/09/2025 text/html ROS as noted in the HPI Patient complains of low back pain. Has [...] and then go down again. GAYATRI Vazquez [address] [place] [address], [place], [address], [facility] [employer] 07/09/2025 12:44:19 [employer] Episode No OBEpisode recorded.
[2025-09-06 18:38] VITALS: BP 144/87; PULSE 96; RESP 16; TEMP 36.9; O2SAT 100; BMI 36.8
--- NOTE | 2025-09-06 18:48 | XR_ITS ---
PROCEDURE INFORMATION: Exam: XR Chest Exam date and time: 09/06/2025 7:04 PM Age: 30 years old Clinical indication: Dyspnea and shortness of breath TECHNIQUE: Imaging protocol: Radiologic exam of the chest. Views: 2 views. Total images: 2 COMPARISON: No relevant prior studies available. FINDINGS: Lungs: Unremarkable. No consolidation. No pulmonary vascular congestion or edema. Pleural spaces: Unremarkable. No pleural effusion. No pneumothorax. Heart/Mediastinum: Unremarkable. No cardiomegaly. No mediastinal widening or hilar enlargement. Bones/joints: Unremarkable. IMPRESSION: No radiographically acute cardiopulmonary process.
--- NOTE | 2025-09-06 18:49 | ED_ITS ---
Discharge Plan Disposition Patient Disposition: Home, Self-Care Condition: Good Prescriptions Prescriptions: No Action valacyclovir [Valtrex] 1 gram tablet 1,000 mg PO BID PRN (Reason: fever blister) Qty: 60 2RF Rx Instructions: Take until fever blister gone atorvastatin 10 mg tablet 10 mg PO DAILY Qty: 30 1RF bupropion HCl 75 mg tablet 75 mg PO BID Qty: 60 1RF amoxicillin 875 mg tablet 875 mg PO BID 10 Days Qty: 20 0RF methylprednisolone [Medrol (Sacha)] 4 mg tablets,dose pack See Rx Instructions PO PER PKG DIR Qty: 21 0RF Rx Instructions: PO PER PKG DIR for 6 days Referrals Follow up/Referrals: Kourtney Park PA [Primary Care Provider, Medical] - See instructions Activity Restrictions/Add. Instructions Additional Instructions/Restrictions: Please follow up with your primary care physician for further monitoring of her symptoms. If you develop fevers that are refractory to Tylenol and Motrin, decreased urine output, intractable nausea and vomiting, or worsening shortness of breath please return to the emergency department for further evaluation Clinical Impressions Clinical Impression: LAD (lymphadenopathy), posterior cervical, Productive cough Instructions Patient Instructions: DI for Acute Abdominal Pain Print Language Print Language: Polish Discharge ED Provider: Chris Root Adult HPI General Chief complaint: Abdominal Pain Stated complaint: covid exp. w/in 2 wks, fever, ba, soa, abd pain Time Seen by Provider: 09/06/25 18:36 Mode of Arrival: Ambulatory Source of Information: Patient Description of Symptoms (Recalled from ER Triage Doc. by RN): gia states she has been fatigued weak upper abdominal pain and sore throat for one week. she reports her baby just have covid. History of Present Illness HPI narrative: This is a 30-year-old female patient, with past medical history of obesity and hypothyroidism, who is presenting to the emergency department today for multiple complaints. Patient states that approximately 1 to 2 weeks ago she was diagnosed with acute otitis media and took a course of amoxicillin which improved her symptoms. She states that over the last couple of days she has developed rhinorrhea, congestion, as well as a cough. She is concerned because this evening she states the cough became productive and she began developing some chest discomfort associated with the cough. She also states that she is concerned over developing posterior cervical lymphadenopathy. The patient also tells me that she is currently being worked up for gallbladder pathology by her primary care physician for chronic abdominal bloating with intermittent discomfort in the epigastric region and right upper quadrant. She is not having overt abdominal pain this evening Related Data Previous Rx's ?Medication ?Instructions ?Recorded valacyclovir 1 gram tablet 1,000 mg PO BID PRN fever b [place] 02/20/23 (Valtrex) #60 tabs atorvastatin 10 mg tablet 10 mg PO DAILY #30 tabs 05/06 bupropion HCl 75 mg tablet 75 mg PO BID #60 tabs 05/21 amoxicillin 875 mg tablet 875 mg PO BID 10 days #20 ta bs 08/23/25 methylprednisolone 4 mg tablets in See Rx Instructions PO PER PKG DIR 08/23/25 a dose pack (Medrol (Sacha)) #21 tabs Allergies Allergy/AdvReac Type Severity Reaction Status Date / Time phentermine (From Adipex-P) Allergy Mild Rash Verified 08/23/25 12:20 [email or web address] Allergy Hives Verified 08/23/25 12:20 PFSH [facility] [place] Disclaimer: The information contained in this section may have been updated after the patient was seen, as this information can be updated by other users. Medical History (Updated 09/06/25 @ 20:19 by Chris Root DO) Otitis media Thyroid disease Urinary tract infection Asthma Swollen lymph nodes Allergic reaction Vitamin D deficiency (~10/2017) Recurrent boils Obesity (BMI 30-39.9) Surgical History History of tonsillectomy Social History Smoking Status: Never smoker alcohol intake: current alcohol intake frequency: holidays/special occasions only substance use type: denies use current occupational status: other Travel in the last 8 weeks?: None household members: family housing: other Have you lived/traveled outside [place] in past 30 days?: No Contact w/someone who lives/traveled outside US past 30 days?: No Exposure to someone with infectious disease in past 14 days?: No Do you have a fever (greater than 100.4 F or 38 C)?: Yes Have you tested positive for COVID-19?: No Exposed to someone with COVID-19 in past 14 days?: Yes Do you have a sore throat?: Yes Do you have a cough?: Yes Do you have any weakness?: Yes Do you have any diarrhea?: No Are you experiencing any unusual bleeding?: No Do you have any muscle aches/pain?: Yes Do you have any abdominal pain?: Yes Are you experiencing loss of taste or smell?: No Other Medical History Have you received the Flu Vaccine for this season: No Have you received the Pneumonia Vaccine: No ROS Obtained: Yes Systems reviewed as appropriate & no additional complaints except as documented Physical Exam General General appearance: other (See MDM) Respiratory Respiratory exam: Present other (See MDM) Cardiovascular Cardiovascular exam: Present other (See MDM) Neurological Exam Neurological exam: Present other (See MDM) Medical Decision Making Medical Records Medical records reviewed: Yes I reviewed the patient's medical records. Screening: Per USPSTF and CDC recommendations, given the prevalence of disease in our region, it is our hospital?s policy to screen for HIV and viral Hepatitis for all patients aged 18 and over and those with ongoing risk factors. Bill Inquiry Pt receiving controlled substance: No Bill was queried for this patient: No Vital Signs: 09/06/25 18:38 09/06/25 19:11 Temperature 98.5 F Temperature Source Oral Pulse Rate 88 Pulse Rate [Right Radial] 96 H Respiratory Rate 16 18 Blood Pressure 130/86 Blood Pressure [Right Arm] 144/87 H Blood Pressure Mean [Right Arm] 106 Blood Pressure Source [Right Arm] Automatic Cuff Blood Pressure Position [Right Arm] Supine 02 Sat by Pulse Oximetry 100 100 Lab Data Lab Results 09/06/25 18:35: WBC 10.3, RBC 4.71, Hgb 12.9, Hct 38.3, MCV 81.3, MCH 27.4, MCHC 33.7, RDW 13.2, Plt Count 275, MPV 12.3 H, Neut % (Auto) 67.4, Lymph % (Auto) 25.0, [place] % (Auto) 6.2, Eos % (Auto) 0.8, Baso % (Auto) 0.3, Neut # (Auto) 6.9, Lymph # (Auto) 2.6, [place] # (Auto) 0.6, Eos # (Auto) 0.1, Baso # (Auto) 0.0, D- Dimer 0.69 H, Sodium 133 L, Potassium 4.0, Chloride 103, Carbon Dioxide 25, Anion Gap 9.0, BUN 7, Creatinine 0.70, Estimated Creat Clear 184, Estimated GFR 100, Est GFR ( Amer) 121, Glucose 97, Calcium 9.2, Total Bilirubin 0.6, A ST 38 H, ALT 43, Alkaline Phosphatase 68, Troponin I < 0.01, Total Protein 7.3, Albumin 4.6, Globulin 2.7, Albumin/Globulin Ratio 1.7, Lipase 27, Serum HCG, Qual Negative, Monoscreen Negative, HIV Ag/Ab Combo Qual Negative 09/06/25 18:35 09/06/25 18:35 Orders (Tests/Meds): ORDERS Category Date Time Status CXR 2 view (NOT portable) [XR chest 2V] Stat Exams 09/06/25 18:48 Taken POCUS Point of Care (ER Only) Stat Exams 09/06/25 18:48 Completed CBC w/Auto Diff [Complete Blood Count Auto Diff] Stat Lab 09/06/25 18:35 Completed CMP [Comprehensive Metabolic Panel] Stat Lab 09/06/25 18:35 Completed D-Dimer Stat Lab 09/06/25 18:35 Completed EBV Acute Infection Antibodies Stat Lab 09/06/25 18:35 Received HCG Qualitative, Serum Stat Lab 09/06/25 18:35 Completed HIV Combo Stat Lab 09/06/25 18:35 Completed Hepatitis C Ab Qual. W/ RFX Stat Lab 09/06/25 18:35 Received Lipase Stat Lab 09/06/25 18:35 Completed Mini Respiratory Panel Stat Lab 09/06/25 18:53 Received Monoscreen (Rapid) Stat Lab 09/06/25 18:35 Completed Troponin I Q3H Lab 09/06/25 22:00 Ordered Troponin I Q3H Lab 09/07/25 01:00 Ordered Troponin I Stat Lab 09/06/25 18:35 Completed EKG Request [ECG Request] Stat Y 09/06/25 18:54 Ordered Medical Decision Narrative: In summary, this a 30-year-old female patient who is presenting to the emergency department today for multiple symptoms including rhinorrhea, congestion, fatigue, cough that is productive, as well as shortness of breath and chest discomfort. The patient's comorbidities include morbid obesity as well as hypothyroidism. Next On initial evaluation of the patient they were resting comfortably in no acute distress and nontoxic in appearance. They are hemodynamically stable, saturating well room air, and are neurologically intact. On physical examination her heart lungs clear to auscultation bilaterally. Radial pulses are equal and symmetric bilaterally. She has no abdominal tenderness, however when I do press on the epigastric region she states that that is where she has felt bloated and had some abdominal pain over the last several weeks but she does not have tenderness in this region upon palpation. Differential diagnosis includes COVID, flu, RSV, rhinovirus, among other viral syndromes. She could also be experiencing bronchitis or pneumonia. We will obtain a D-dimer as well as a troponin out of an abundance of precaution. I will also perform a right upper quadrant ultrasound to ensure that she does not have any evidence of cholecystitis or cholelithiasis. We will also obtain a lipase to ensure that this vague discomfort in the epigastric region over the last few weeks is not coming from her pancreas Work was initiated with hematologic labs as well as viral swabs and a test. We will perform POCUS. Labs were personally interpreted by me and demonstrate no actionable normalities. Patient has no evidence of leukocytosis. No anemia. Patient is low risk by Wells criteria so we obtained a D-dimer. D-dimer 0.69 which by 1 years criteria effectively rules out pulmonary embolism. CMP is nonactionable. She has no elevation of her bilirubin. Troponin is less than 0.01. hCG is negative. Monoscreen is negative. EKG was personally turbid by me and demonstrates normal sinus rhythm at a rate of 79 bpm, normal axis, no OR prolongation, narrow QRS, no QTc prolongation. Chest x-ray was personally turbid by me and demonstrates no lobar consolidation or pleural effusion. Official radiology read is in agreement states there is no acute unreality I did attempt to perform POCUS of the patient's right upper quadrant however she has lots of bowel gas on the way and I was unable to identify the gallbladder. However, given that she is not currently experiencing pain in the right upper quadrant and her liver enzymes are grossly unremarkable I do not feel that she is experiencing acute life-threatening biliary pathology My overwhelming suspicion is that the patient is experiencing a viral syndrome which is resulting in posterior cervical lymphadenopathy, cough that is production of phlegm, as well as her fatigue, congestion, and rhinorrhea. I have instructed the patient to take Tylenol and Motrin as well as [id number] medications for relief. At this time all questions been answered and all parties are agreeable with the decision to discharge home Critical Care Critical Care Time Critical Care Time: No
[2025-09-06 18:56] LABS: Hematocrit 38.3 % (37.0-47.0); Hemoglobin 12.9 g/dL (12.2-16.2); Immature Granulocytes % 0.3 %; Mean Corpuscular HGB Conc 33.7 g/dL (31.8-35.4); Mean Corpuscular Hemoglobin 27.4 pg (27.0-31.2); Mean Corpuscular Volume 81.3 fl (81-99); Nucleated Red Blood Cells % 0 %; Platelet Count 275 K/mm3 (142-424); Red Blood Count 4.71 M/mm3 (4.20-5.40); Red Cell Distribution Width-SD 38.9 fL; White Blood Count 10.3 K/mm3 (4.8-10.8)
[2025-09-06 18:57] LABS: Coronavirus 19, PCR Not Detected (NotDetected); Influenza A, PCR Not Detected (NotDetected); Influenza B, PCR Not Detected (NotDetected)
[2025-09-06 19:07] LABS: HCG Qualitative, Serum Negative (Negative)
[2025-09-06 19:08] LABS: D-Dimer 0.69 ug/mL (0.0-0.5)
--- NOTE | 2025-09-06 19:08 | ECG_ITS ---
APPROVED REPORT Exam: Resting ECG HR:79 bpm ECG Measurements Heart Rate 79 AXES NJ 158 P 45 QRSd 98 QRS 48 QT 344 T 13 QTc 379 Conclusion Normal sinus rhythm Normal axis Normal intervals No STEMI Electronically signed by : Chris Root, 09/06/2025 23:42:36
[2025-09-06 19:11] VITALS: BP 130/86; PULSE 88; RESP 18; O2SAT 100
[2025-09-06 19:11] LABS: Monoscreen (Rapid) Negative (Negative)
[2025-09-06 19:13] LABS: Lipase 27 U/L (23-300)
[2025-09-06 19:14] LABS: Alanine Aminotransferase 43 U/L (12-78); Albumin Level 4.6 g/dl (3.5-5.0); Albumin/Globulin Ratio 1.7 (1.1-1.8); Alkaline Phosphatase 68 U/L (38-126); Anion Gap 9.0 mEq/L (5-15); Aspartate Amino Transferase 38 U/L (14-36); Bilirubin,Total 0.6 mg/dl (0.2-1.3); Blood Urea Nitrogen 7 mg/dl (7-17); Calcium 9.2 mg/dl (8.4-10.2); Carbon Dioxide 25 mmol/L (22.0-30.0); Chloride 103 mmol/L (98-107); Creatinine Clearance Estimated 184 mL/min (50-200); Creatinine,Serum 0.70 mg/dl (0.52-1.04); Estimated Glomerular Filt Rate 100 ml/min (>60); GFR (African American) 121 ML/MIN (>60); Globulin 2.7 g/dL (1.3-3.2); Glucose 97 mg/dl (74-100); Potassium 4.0 mmoL/L (3.5-5.1); Sodium 133 mmol/L (136-145); Total Protein,Serum 7.3 g/dl (6.3-8.2)
[2025-09-06 19:37] LABS: Troponin I < 0.01 ng/ml (0.00-0.034)
[2025-09-06 20:30] LABS: Microscopic, Urine URINE MICROSCOPIC (MICROSCOPIC)
[2025-09-06 20:31] LABS: Bilirubin,Urine Negative (Negative); Color,Urine YELLOW (Yellow); Glucose,Urine (UA) Negative (Negative); Ketones,Urine Negative (Negative); Leukocyte Esterase,Urine Negative (Negative); PH,Urine 7.5 (5.0-8.5); Protein,Urine Negative (Negative); Specific Gravity, Urine <= 1.005 (1.005-1.030); Urobilinogen,Urine 0.2 EU/dl (0.2)
[2025-09-06 20:41] VITALS: BP 122/78; PULSE 71; RESP 18; TEMP 37.1; O2SAT 98
[2025-09-06 20:42] LABS: RBC,Urine Occasional #/hpf (0-3)
[2025-09-06 20:43] LABS: Bacteria,Urine 1+ /lpf
[2025-09-07 09:48] LABS: Hepatitis C Ab Qual. W/ RFX NEGATIVE (Negative)
[2025-09-08 14:23] LABS: EBV Nuclear Antigen Ab, IgG <18.0 U/mL (0.0-17.9)
== END 2025-09-06 20:42 | disposition home or self-care (01) ==
PROVIDERS: Physician Assistant; Emergency Provider Student in an Organized Health Care Education/Training Program; PCP Physician Assistant
DX: R59.0 Localized enlarged lymph nodes (principal); E87.1 Hypo-osmolality and hyponatremia; R05.1 Acute cough; R53.83 Other fatigue; R10.10 Upper abdominal pain, unspecified
CPT/HCPCS: 71046; 80053; 81001; 83690; 84484; 84703; 85025; 85378; 86318; 86664; 86665; 86803; 87389; 87631; 93005; 99284; 99285